=== PATIENT | female | born 1930 | race Caucasian/White ===

== ENCOUNTER 2016-10-07 08:37 | Inpatient (IN) ==
[2016-10-07] MEDS ORDERED: Nitroglycerin 0.4 MG TAB.SUBL SL ONE (09:40)
--- NOTE | 2016-10-07 09:40 | Emergency Department Note ---
Disposition Clinical Impression: Dyspnea Qualifiers: Dyspnea type: shortness of breath Qualified Code(s): R06.02 - Shortness of breath Disposition: Admitted As Inpatient Condition: Fair Referrals: Jenelle De Luna DO [Primary Care Provider] - Forms: ED Satisfaction Letter General Adult HPI - General Chief complaint: ED Shortness of Breath/Dyspnea Stated complaint: FCO Time Seen by Provider: 10/07/16 08:43 Source: patient Limitations: no limitations Nursing Notes Reviewed: Yes Vital Signs Reviewed: Yes - History of Present Illness Pt Subjective Complaint: "Still short of breath" Onset (ago): week(s) (1.5) Location: other (no pain now) Radiation: non-radiation Pain Scale: 0 Quality: other (patient denies pain to me) Improves with: nothing Worsens with: nothing Associated symptoms: Denies: confusion, chest pain, cough, diaphoresis, fever/ chills, headaches, loss of appetite, malaise, nausea/vomiting, rash, seizure, shortness of breath, syncope, weakness, other Treatments Prior to Arrival: other (patient was seen here on Sunday and was diagnosed with CAP. She was given a Z-pack. She finished this med two days ago and still feels the same. ) - Related Data Home Medications Medication Instructions Recorded Confirmed Alendronate Sodium 70 mg PO AD 08/24/16 08/24/16 Brimonidine Tartrate [Alphagan P] 1 drop BOTH EYES TID 08/24/16 08/24/16 CarBAMazepine [Carbamazepine ER] 100 mg PO BID 08/24/16 08/24/16 CloNIDine HCl 0.1 mg PO HS 08/24/16 08/24/16 Dorzolamide [Trusopt] 1 drop BOTH EYES TID 08/24/16 08/24/16 Gabapentin [Neurontin] 100 mg PO TID 08/24/16 08/24/16 Hydrocodone/Acetaminophen 1 tab PO Q6H PRN 08/24/16 08/24/16 [Hydrocodon-Acetaminophen 5-325] Lisinopril [Zestril] 20 mg PO DAILY 08/24/16 08/24/16 Loratadine [Allergy Relief] 10 mg PO DAILY 08/24/16 08/24/16 Metoprolol [Lopressor] 50 mg PO DAILY 08/24/16 08/24/16 Raloxifene [Evista] 60 mg PO DAILY 08/24/16 08/24/16 Timolol Maleate 0.5% [Timolol 1 drop OP DAILY 08/24/16 08/24/16 Maleate 0.5%] Previous Rx's Medication Instructions Recorded Megestrol Acetate [Megace] 400 mg PO DAILY #400 mls 08/24/16 Omeprazole [PriLOSEC] 20 mg PO DAILY #30 cap 08/24/16 Amitriptyline [Elavil] 25 mg PO DAILY 14 Days 09/15/16 Naproxen [Naprosyn] 250 mg PO BID #10 tablet 09/15/16 Azithromycin [Azithromycin 6-Tab 250 mg PO PER PKG DI #6 tab 10/02/16 Pack] Allergies Allergy/AdvReac Type Severity Reaction Status Date / Time No Known Allergies Allergy Verified 10/02/16 11:23 All systems ED: reviewed and negative except as stated. Constitutional: Denies: fever, chills, weakness, weight change, night sweats Eyes: Denies: eye pain, eye discharge, vision change ENT ED: Denies: ear pain, throat pain, congestion, dysphagia Cardiovascular: Reports: dyspnea on exertion. Denies: chest pain, palpitations , orthopnea, edema, syncope, paroxysmal nocturnal dyspnea Respiratory: Reports: dyspnea. Denies: cough, wheezes, hemoptysis, stridor, sputum production Gastrointestinal: Denies: abdominal pain, nausea, vomiting, diarrhea Genitourinary: Denies: urgency, dysuria, frequency, hematuria Musculoskeletal: Denies: back pain, neck pain, joint swelling, arthralgia, myalgia Integumentary: Denies: rash Neurological: Denies: headache, weakness, numbness, paresthesias, confusion, abnormal gait, vertigo Psychiatric: Denies: anxiety Endocrine: Denies: fatigue Hematological/Lymphatic: Denies: easy bleeding Allergic/Immunologic: Denies: facial swelling Past Medical History - Past Medical History Attestation: Yes The following information was validated with the patient. Source: patient Medical history: Reports: hypertension, myocardial infarction, other Psychiatric history: Reports: anxiety, depression [employer]ERSON [employer] NEED[employer] history: Reports: no [employer]ESPERSON [employer] NEEDS history - Social History Smoking Status: Never smoker Smokeless Tobacco Status: No Alcohol use: Reports: none Drug use: Reports: none Physical Exam - General Limitations: no limitations General appearance: alert, in no apparent distress, anxious - Head Head exam: atraumatic, normocephalic, normal inspection - Eye Eye exam: Present: normal appearance, PERRL. Absent: scleral icterus, conjunctival injection, periorbital swelling - ENT ENT exam: mucous membranes moist - Neck Neck exam: Present: normal inspection, full ROM, trachea midline. Absent: meningismus, lymphadenopathy - Chest Chest inspection: Present: normal inspection, symmetric chest wall rise. Absent : tenderness - Respiratory Respiratory exam: Present: normal lung sounds bilaterally. Absent: respiratory distress, wheezes, stridor, accessory muscle use, prolonged expiratory phase - Cardiovascular Cardiovascular exam: Present: regular rate, normal rhythm, normal heart sounds - Abdominal Exam Abdominal exam: Present: soft, Non-Tender. Absent: tenderness, distention, guarding, rebound, rigidity - Extremities Exam Extremities exam: Present: normal inspection. Absent: pedal edema - Expanded Lower Extremity Exam Lower leg exam: Absent: tenderness, swelling, ecchymosis, erythema, Homans' sign Neurovascular/Tendon exam: Present: normal capillary refill. Absent: pulse deficit, motor deficit, sensory deficit, tendon deficit, extremity cold to touch , pallor, foot drop Gait: not tested/not observed - Back Exam Back exam: Present: normal inspection - Neurological Exam Neurological exam: Present: alert, oriented X3, CN II-XII intact, normal gait - Psychiatric Psychiatric exam: Present: normal affect, normal mood - Skin Skin exam: Present: warm, dry, intact, normal color Course Course Narrative: Patient presents from home for evaluation of continued dyspnea. She was diagnosed with bronchitis this past Sunday by her primary care provider. She was then seen in the ER and was diagnosed with pneumonia after having a CTA done. She has completed a Z-Eron and has had no improvement. She denies cough or hemoptysis, chest pain, abdominal pain or back pain. 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 She states that the jaw pain feels similar to that which she has experienced in the past from her TMJ syndrome. She denies chest pressure, heaviness or pain at this time. She denies lightheadedness, dizziness, vertigo, syncope. She does not recall ever having a stress test but was diagnosed with a "mild heart attack several years ago." We will check labs, x-ray, EKG and reassess. Patient was very difficult stick. The roller stainer was able to get some blood for some of the labs, however, a second roller stainer will need to come jaw dictation for the remainder of the labs. This resulted in a significant delay in patient's disposition. Given her past medical history, presenting symptoms with no fever and no cough, I am concerned that her dyspnea may be an anginal equivalent. She will require admission for further evaluation. Patient care is transferred to Dr. Seo. He will speak with the hospitalist regarding admission. - Reevaluation(s) Reevaluation #1: Repeat BP improved but still elevated Time: 11:20 Vital Signs Temperature 97.5 F L 10/07/16 08:38 Pulse Rate 59 10/07/16 08:38 Respiratory Rate 18 10/07/16 08:38 Blood Pressure 194/142 10/07/16 08:38 O2 Sat by Pulse Oximetry 94 L 10/07/16 08:38 Temperature 97.5 F L 10/07/16 08:38 Pulse Rate 71 10/07/16 12:10 Respiratory Rate 12 10/07/16 12:10 Blood Pressure 167/92 10/07/16 12:10 O2 Sat by Pulse Oximetry 99 10/07/16 12:10 Oxygen Delivery Oxygen Delivery Room Air Medical Decision Making - Medical Records Medical records reviewed: Yes I reviewed the patient's medical records. - Lab Data Lab results reviewed: Yes I reviewed the patient's lab results. Lab results narrative: Laboratory Last Values WBC 12.8 K/mcL (4.3-11.1) H 10/07/16 11:16 RBC 5.09 M/mcL (3.82-4.97) H 10/07/16 11:16 Hgb 15.9 g/dL (11.5-15.4) H 10/07/16 11:16 Hct 47.1 % (35.3-44.9) H 10/07/16 11:16 MCV 92.5 fL (83.0-100.0) 10/07/16 11:16 MCH 31.2 pg (28.0-33.3) 10/07/16 11:16 MCHC 33.8 g/dL (31.6-35.5) 10/07/16 11:16 RDW 12.8 % (11.5-14.5) 10/07/16 11:16 Plt Count 157 K/mcL (140-400) 10/07/16 11:16 MPV 11.0 fL (9.4-12.4) 10/07/16 11:16 Immature Gran % 0.2 % (0-4) 10/07/16 11:16 Seg Neutrophils % 76.5 % 10/07/16 11:16 Lymphocytes % 14.6 % 10/07/16 11:16 Monocytes % 5.8 % 10/07/16 11:16 Eosinophils % 2.4 % 10/07/16 11:16 Basophils % 0.5 % 10/07/16 11:16 Neutrophils # 9.8 K/mcL (1.6-8.9) H 10/07/16 11:16 Lymphocytes # 1.9 K/mcL (0.6-4.6) 10/07/16 11:16 Monocytes # 0.7 K/mcL (0.0-1.3) 10/07/16 11:16 Eosinophils # 0.3 K/mcL (0.0-0.6) 10/07/16 11:16 Basophils # 0.1 K/mcL (0.0-0.2) 10/07/16 11:16 Sodium 143 mEq/L (136-145) 10/07/16 11:16 Potassium 5.2 mEq/L (3.5-4.5) H 10/07/16 11:16 Chloride 108 mEq/L (98-109) 10/07/16 11:16 Carbon Dioxide 25 mEq/L (19-29) 10/07/16 11:16 BUN 19 mg/dL (7-20) 10/07/16 11:16 Creatinine 0.67 mg/dL (0.57-1.11) 10/07/16 11:16 Est GFR ( Amer) > 60 (> 60) 10/07/16 11:16 Est GFR (Non-Af Amer) > 60 (> 60) 10/07/16 11:16 BUN/Creatinine Ratio 28 (6-26) H 10/07/16 11:16 Glucose 102 mg/dL (70-99) H 10/07/16 11:16 Calculated Osmolality 298 (280-300) 10/07/16 11:16 Calcium 9.4 mg/dL (8.6-10.8) 10/07/16 11:16 Specimen Rejected Volume 10/07/16 11:16 Result diagrams: 10/07/16 11:16 10/07/16 11:16 Lab Results 10/07/16 10/07/16 10/07/16 Range/Units 11:16 11:16 11:16 WBC 12.8 H (4.3-11.1) K/mcL RBC 5.09 H (3.82-4.97) M/mcL Hgb 15.9 H (11.5-15.4) g/dL Hct 47.1 H (35.3-44.9) % MCV 92.5 (83.0-100.0) fL MCH 31.2 (28.0-33.3) pg MCHC 33.8 (31.6-35.5) g/dL RDW 12.8 (11.5-14.5) % Plt Count 157 (140-400) K/mcL MPV 11.0 (9.4-12.4) fL Immature Gran % 0.2 (0-4) % Seg Neutrophils % 76.5 % Lymphocytes % 14.6 % Monocytes % 5.8 % Eosinophils % 2.4 % Basophils % 0.5 % Neutrophils # 9.8 H (1.6-8.9) K/mcL Lymphocytes # 1.9 (0.6-4.6) K/mcL Monocytes # 0.7 (0.0-1.3) K/mcL Eosinophils # 0.3 (0.0-0.6) K/mcL Basophils # 0.1 (0.0-0.2) K/mcL Sodium 143 (136-145) mEq/L Potassium 5.2 H (3.5-4.5) mEq/L Chloride 108 (98-109) mEq/L Carbon Dioxide 25 (19-29) mEq/L BUN 19 (7-20) mg/dL Creatinine 0.67 (0.57-1.11) mg/dL Est GFR ( Amer) > 60 (> 60) Est GFR (Non-Af Amer) > 60 (> 60) BUN/Creatinine Ratio 28 H (6-26) Glucose 102 H (70-99) mg/dL Calculated Osmolality 298 (280-300) Calcium 9.4 (8.6-10.8) mg/dL Specimen Rejected Volume - Radiology Data Radiology results reviewed: Yes I reviewed the patient's radiology results. Chest X-Ray 10/07/16 09:33 IMPRESSION: No acute cardiopulmonary disease. Mild cardiomegaly without overt failure. D/ / Patrick John MD / Patrick John MD Interpreting Provider: Patrick John MD Attestation Statement - Attestation Attestation: I examined this patient and my medical decision-making was reviewed with the NOTE TAKER/PA/Advanced Practice Nurse/Resident Physician. I agree with the documented findings, disposition and treatment plan as described except to the extent set forth below. [id number] time provided Patient complains of dyspnea. She appears in acute distress on exam. Pulse ox appropriate. She was able to ambulate to the treatment area. Recently seen in this emergency department and diagnosed with possible early pneumonia via CT I
[2016-10-07] MEDS: 0.9 % Sodium Chloride 500 ML IVC ONE (09:57)
[2016-10-07 11:34] LABS: Basophils # 0.1 K/mcL (0.0-0.2); Basophils % 0.5 %; Eosinophils # 0.3 K/mcL (0.0-0.6); Eosinophils % 2.4 %; Hematocrit 47.1 % (35.3-44.9); Hemoglobin 15.9 g/dL (11.5-15.4); Immature Granulocytes % 0.2 % (0-4); Lymphocytes # 1.9 K/mcL (0.6-4.6); Lymphocytes % 14.6 %; Mean Corpuscular HGB Conc 33.8 g/dL (31.6-35.5); Mean Corpuscular Hemoglobin 31.2 pg (28.0-33.3); Mean Corpuscular Volume 92.5 fL (83.0-100.0); Monocytes # 0.7 K/mcL (0.0-1.3); Monocytes % 5.8 %; Neutrophils # 9.8 K/mcL (1.6-8.9); Platelet Count 157 K/mcL (140-400); Red Blood Count 5.09 M/mcL (3.82-4.97); Red Cell Distribution Width 12.8 % (11.5-14.5); Segmented Neutrophils % 76.5 %
[2016-10-07 11:39] LABS: BUN/Creatinine Ratio 28 (6-26); Blood Urea Nitrogen 19 mg/dL (7-20); Calcium 9.4 mg/dL (8.6-10.8); Carbon Dioxide 25 mEq/L (19-29); Chloride 108 mEq/L (98-109); Glucose 102 mg/dL (70-99); Osmolality,Calculated 298 (280-300); Sodium 143 mEq/L (136-145); eGFR For African Americans > 60 (> 60); eGFR For Non-African Americans > 60 (> 60)
[2016-10-07 11:40] LABS: Potassium 5.2 mEq/L (3.5-4.5)
[2016-10-07 12:23] LABS: INR 1.1; Prothrombin Time 12.4 Seconds (9.4-12.1)
[2016-10-07] MEDS ORDERED: Naloxone 0.4 MG/ML INJ IVP PRN (13:02)
[2016-10-07] MEDS ORDERED: Mag Hydrox/Al Hydrox/Simeth 30 ML UDC PO PRN (13:02)
[2016-10-07] MEDS ORDERED: MOM Conc 10 ML UD.LIQ PO PRN (13:02)
--- NOTE | 2016-10-07 14:01 | Internal Med History&Physical ---
<Isha Tao - Last Filed: 10/07/16 19:09> Date of Encounter: 10/07/16 Time of Encounter: 13:30 Assessment and Plan (1) Dyspnea Current visit: Yes Status: Acute Pt has been intermittently dyspnic for 7-8 days. 02 sats have been WNL Plan as above Qualifiers: Dyspnea type: shortness of breath Qualified Code(s): R06.02 - Shortness of breath (2) Community acquired pneumonia Current visit: No Status: Acute Pt was diagnosed with CAP 6 days ago, refused admission. Z-pack for home. Pt returns today for continued dyspnea, fatigue, and weakness. Denies fever or cough. 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 Will continue to follow. Labs in a.m. Qualifiers: Leukocytosis type: unspecified Qualified Code(s): D72.829 - Elevated white blood cell count, unspecified (4) Hypertension Current visit: Yes Status: Chronic Continue home medications. IV Hydralazine 10mg IVP x 1 for htn on arrival to unit. Monitor VS q4h Qualifiers: Hypertension type: essential hypertension Qualified Code(s): I10 - Essential (primary) hypertension (5) CAD (coronary artery disease) Current visit: Yes Status: Acute NE with stent 4 years ago. Pt is pain free. Echo ordered. Will continue to monitor. Pt is on telemetry. Qualifiers: Coronary Disease-Associated Artery/Lesion type: [place] artery [place] vs. transplanted heart: [place] heart Associated angina: without angina Qualified Code(s): I25.10 - Atherosclerotic heart disease of [place] coronary artery without angina pectoris Internal Medicine - H&P: HPI Chief complaint: sob, pneumonia this week Admitted From: Home Plans for Post Hospital Care: Home History of present illness: Ms. Grover is a 86 year old female with history of NE, CAD, Stent 4 yrsa go, HTN, glaucoma and TMJ. Pt present to ED today for continued SOB, fatigue, and weakness. Pt was treated last week for pneumonia with a zpack. She refused admission 6 days ago and has failed outpt therapy. Today's chest xray shows no acute cardiopulmonary disease, mild cardiomegaly without overt failure. CTA on 2 /13 showed no PE, but heterogenous and nodular infiltrate with RUL prominenece, RML and lingular consolidation, suggestive of pneumonia. She denies AN, however when she is up walking around her room, she appears to be SOB, denies fever, cough, or nausea and vomiting. She has constant rhinorrhea due to environmental allergies, no change. Past Med Surg Social Fam HX - Past Medical History Medical history: hypertension, myocardial infarction, other Psychiatric history: anxiety, depression - Social History Smoking Status: Never smoker Smokeless Tobacco Status: No Alcohol use: none Drug use: none - Family History Mother History Unknown: Yes Internal Medicine - H&P: Meds Alendronate Sodium 70 mg PO QWEEK 08/24/16 [History] Brimonidine Tartrate [Alphagan P] 1 drop BOTH EYES TID 08/24/16 [History] CarBAMazepine [Carbamazepine ER] 100 mg PO BID 08/24/16 [History] Dorzolamide [Trusopt] 1 drop BOTH EYES TID 08/24/16 [History] Gabapentin [Neurontin] 100 mg PO TID 08/24/16 [History] Hydrocodone/Acetaminophen [Hydrocodon-Acetaminophen 5-325] 1 tab PO Q6H PRN 01/03 [History] Lisinopril [Zestril] 20 mg PO DAILY 08/24/16 [History] Loratadine [Allergy Relief] 10 mg PO DAILY 08/24/16 [History] Omeprazole [PriLOSEC] 20 mg PO DAILY #30 cap 08/24/16 [Rx] Raloxifene [Evista] 60 mg PO DAILY 08/24/16 [History] Timolol Maleate 0.5% [Timolol Maleate 0.5%] 1 drop OP BID 08/24/16 [History] Amitriptyline [Elavil] 25 mg PO DAILY 14 Days 09/15/16 [Rx] Aspirin [Lo-Dose Aspirin EC] 81 mg PO DAILY 10/07/16 [History] CloNIDine HCl [Clonidine HCl] 0.2 mg PO BID 10/07/16 [History] Metoprolol XL (24 HR) Succ [Toprol XL] 100 mg PO DAILY 10/07/16 [History] Allergies No Known Allergies Allergy (Verified 10/02/16 11:23) All Systems PM: A 10-system review of systems was performed and is negative for pertinent findings except as documented above in the HPI. - Constitutional Constitutional: fatigue, weakness, no anorexia, no chills, no fever(s), no falls , no night sweats - EENT Eyes: no discharge Ears: decreased hearing, no ear discharge, no ear pain - Cardiovascular Cardiovascular ROS IM: dyspnea, no chest pain, no diaphoresis, no dyspnea on exertion, no edema, no irregular heart rhythm, no lightheadedness, no palpitations - Respiratory Respiratory: dyspnea, no cough, no hemoptysis, no dyspnea on exertion, no wheezing, no stridor, no pain on inspiration, no chest congestion, no change in phlegm color - Gastrointestinal Gastrointestinal: no cramping, no diarrhea, no nausea, no vomiting - Musculoskeletal Musculoskeletal ROS IM: no myalgias - Integumentary Integumentary IM: no rash - Constitutional Vitals: Temp Pulse Resp BP Pulse Ox 97.8 F 80 16 217/93 96 10/07/16 13:29 10/07/16 13:29 10/07/16 13:29 10/07/16 13:29 10/07/16 13:29 General appearance: Present: cooperative, A&O X 3, pleasant, underweight, answers questions appropriately - Head Head exam: Present: atraumatic, normal inspection - Eye Eye exam: Present: normal appearance, conjuntiva pink - ENT ENT exam: Present: mucous membranes moist, normal exam - Neck Neck exam general surgery: Present: normal inspection. Absent: lymphadenopathy , tenderness - Respiratory Respiratory exam: Present: respiratory distress, wheezes. Absent: chest wall tenderness, decreased breath sounds, CTAB Additional comments: mild respiratory distress, pt can speak in long sentences. - Cardiovascular Cardiovascular exam: Present: RRR, +S1, +S2 - GI/Abdominal GI/Abdominal exam: Present: firm, soft. Absent: mass, splenomegaly, tenderness - Extremities Exam Extremities exam: Present: full ROM, normal capillary refill, normal inspection , warm, radial pulses palpable and symetrical. Absent: calf tenderness, joint swelling, pedal edema, tenderness - Neurological Exam Neurological exam: Present: alert, oriented X3. Absent: facial droop, speech deficit Internal Med - H&P Results - Labs CBC & Chem 7: 10/07/16 11:16 10/07/16 11:16 <Isadora Anthony E - Last Filed: 10/08/16 10:57> Date of Encounter: 10/08/16 Internal Medicine - H&P: HPI History of present illness: Ms. Grover is a 86 year old female All Systems PM: A 10-system review of systems was performed and is negative for pertinent findings except as documented above in the HPI. - Constitutional Vitals: Temp Pulse Resp BP Pulse Ox 98.5 F 93 18 127/77 96 10/08/16 06:44 10/08/16 06:44 10/08/16 06:44 10/08/16 06:44 10/08/16 06:44 Internal Med - H&P Results - Labs CBC & Chem 7: 10/08/16 05:20 10/08/16 05:20 Labs: Short CBC 10/08/16 Range/Units 05:20 WBC 13.0 H (4.3-11.1) K/mcL Hgb 14.2 D (11.5-15.4) g/dL Hct 44.3 (35.3-44.9) % Plt Count 175 (140-400) K/mcL Neutrophils # 11.0 H (1.6-8.9) K/mcL BMP 10/08/16 05:20 Sodium 142 Potassium 4.5 Chloride 108 Carbon Dioxide 27 BUN 19 Creatinine 0.72 Glucose 98 Calcium 8.4 L Urine 10/07/16 Range/Units 20:45 Urine Color Yellow (Yellow) Urine Clarity Cloudy A (Clear) Urine pH 6.5 (5.0-8.0) pH Units Ur Specific [place] 1.023 (1.010-1.025) Urine Protein 30 H (Neg-Trace) mg/dL Urine Glucose (UA) Normal (Normal) mg/dL - Attending Attestation I examined this patient and reviewed laboratory, imaging and all diagnostic data on 10/07/16. My medical decision-making was reviewed with CARRINGTON Tao. I agree with the documented findings, disposition and treatment plan as described above. 86 yo F with left leg per history of CAD with cardiac stent 4 years ago, HTN and anxiety. She presented with progressive shortness of breath. She was diagnosed with pneumonia with a CTA chest on 10/02 showing no PE, but heterogenous and nodular infiltrate with RUL prominenece, RML and lingular consolidation, suggestive of pneumonia. She completed a Z-Eron course but her symptoms have not improved. Examination revealed mild rhonchi in right upper lung. No wheezes. WBC 12.8. No fever. Likely secondary to failing outpatient community-acquired pneumonia therapy. We will start her on IV Levaquin.
[2016-10-07] MEDS: Acetaminophen 325 MG TABLET PO PRN (14:24)
[2016-10-07] MEDS: 0.9 % Sodium Chloride 1,000 ML IVC SCH (14:25)
[2016-10-07] MEDS: Levofloxacin 750 MG/150 ML 750 MG/150 ML BAG IVPB SCH (14:26)
[2016-10-07] MEDS: Ondansetron 4 MG/2 ML VIAL IVP PRN (15:14)
[2016-10-07] MEDS ORDERED: *HR* LORazepam 2 MG/ML VIAL ONE (15:20)
[2016-10-07] MEDS: *HR* LORazepam 2 MG/ML VIAL IVP ONE ×2 (15:22→16:20)
[2016-10-07] MEDS: Gabapentin 100 MG CAPSULE PO SCH (20:41)
[2016-10-07] MEDS: Dorzolamide OPTH 10 ML BOTTLE BOTH EYES SCH (20:41)
[2016-10-07] MEDS: CarBAMazepine XR (12 hr) 100 MG TAB PO SCH (20:41)
[2016-10-07] MEDS: cloNIDine HCl 0.1 MG TABLET PO SCH (20:41)
[2016-10-07 21:00] LABS: Bilirubin,Urine Negative (Negative); Blood,Urine Negative (Negative); Clarity,Urine Cloudy (Clear); Color,Urine Yellow (Yellow); Glucose,Urine (UA) Normal (Normal); Ketones,Urine Negative (Negative); Leukocyte Esterase,Urine Large (Negative); Nitrite,Urine Negative (Negative); PH,Urine 6.5 pH Units (5.0-8.0); Protein,Urine 30 mg/dL (Neg-Trace); Specific Gravity,Urine 1.023 (1.010-1.025); Urobilinogen,Urine Normal (Normal)
[2016-10-07 21:02] LABS: Bacteria,Urine None Seen per hpf (None-Few); Hyaline Casts,Urine None Seen per lpf (None-Few); Squamous Epithelial Cell,Urine Many per lpf (None-Few); WBC,Urine TNTC per hpf (0-3)
[2016-10-08 05:40] LABS: Basophils % 0.3 %; Eosinophils # 0.1 K/mcL (0.0-0.6); Eosinophils % 0.8 %; Hematocrit 44.3 % (35.3-44.9); Immature Granulocytes % 0.4 % (0-4); Lymphocytes # 1.3 K/mcL (0.6-4.6); Lymphocytes % 9.7 %; Mean Corpuscular HGB Conc 32.1 g/dL (31.6-35.5); Mean Corpuscular Hemoglobin 31.1 pg (28.0-33.3); Mean Corpuscular Volume 96.9 fL (83.0-100.0); Mean Platelet Volume 10.3 fL (9.4-12.4); Monocytes # 0.5 K/mcL (0.0-1.3); Platelet Count 175 K/mcL (140-400); Red Blood Count 4.57 M/mcL (3.82-4.97); Red Cell Distribution Width 13.1 % (11.5-14.5); Segmented Neutrophils % 84.8 %
[2016-10-08 05:47] LABS: Hemoglobin 14.2 g/dL (11.5-15.4)
[2016-10-08 05:56] LABS: BUN/Creatinine Ratio 26 (6-26); Blood Urea Nitrogen 19 mg/dL (7-20); Calcium 8.4 mg/dL (8.6-10.8); Carbon Dioxide 27 mEq/L (19-29); Chloride 108 mEq/L (98-109); Glucose 98 mg/dL (70-99); Osmolality,Calculated 296 (280-300); Potassium 4.5 mEq/L (3.5-4.5); Sodium 142 mEq/L (136-145); eGFR For African Americans > 60 (> 60); eGFR For Non-African Americans > 60 (> 60)
[2016-10-08] MEDS: 0.9 % Sodium Chloride 1,000 ML IVC SCH (08:28)
[2016-10-08] MEDS: Metoprolol XL (24 HR) Succ 50 MG TAB.ER.24H PO SCH (08:32)
[2016-10-08] MEDS: CarBAMazepine XR (12 hr) 100 MG TAB PO SCH ×2 (08:32→21:06)
[2016-10-08] MEDS: *HR* Heparin 5,000 UNIT/ML VIAL SQ SCH ×2 (08:32→15:53)
[2016-10-08] MEDS: Lisinopril 20 MG TABLET PO SCH (08:32)
[2016-10-08] MEDS: Loratadine 10 MG TABLET PO SCH (08:33)
[2016-10-08] MEDS: Aspirin Enteric Coated 81 MG Tablet PO SCH (08:33)
[2016-10-08] MEDS: Gabapentin 100 MG CAPSULE PO SCH ×3 (08:33→21:06)
[2016-10-08] MEDS: cloNIDine HCl 0.1 MG TABLET PO SCH ×2 (08:33→21:06)
[2016-10-08] MEDS: Dorzolamide OPTH 10 ML BOTTLE BOTH EYES SCH ×3 (08:38→21:07)
--- NOTE | 2016-10-08 11:26 | ECHO - Doppler Report ---
Echocardiogram Name: Noni Grover Date of Study: 10/08/2016 Date: 1930 Ht: 59.0 in Medical Record#: [id number] Age: 86 Wt: 97.0 lb Gender: Female BSA: 1.36 Order #: [id number] Location: [facility] Room #: [id number] Reading Physician: Suzette Sanches DO Culinary Specialist: SJ AaronT, [facility] Ordering Physician: Isha Tao CNP Primary Physician: Jenelle De Luna DO Indications: Shortness of breath Impressions: Hyperdynamic LV function, EF 70%, with small underfilled LV cavity. Indeterminate diastolic function. Normal right ventricular size and function. Aortic valve sclerosis. Mild tricuspid regurgitation. Mild pulmonary hypertension. Left Ventricular Wall Motion: Rest Echo Findings All wall segments showed normal motion. Findings: Study Quality * Technically adequate exam. ECG Findings * Normal sinus rhythm. Left Ventricle * Mild concentric left ventricular hypertrophy. * LVEF 70%. * Small LV cavity with hyperdynamic function. No LVOTO. * Indeterminate diastolic function. Mitral Valve * Normal mitral valve structure. * No mitral stenosis. * No mitral regurgitation. Aortic Valve * No aortic regurgitation. * Aortic valve not well visualized. * No aortic stenosis. * Aortic sclerosis. Tricuspid Valve * Tricuspid valve not well visualized. * Mild tricuspid regurgitation. * Estimated RA pressure is 3 mmHg. * Estimated RVSP is 40 mmHg. * Mild pulmonary hypertension. Pulmonic Valve * Pulmonic valve is not well visualized. * No pulmonic stenosis. * No pulmonic regurgitation. Pulmonary Artery * Pulmonary artery not well visualized. Right Ventricle * Normal right ventricular structure and function. Right Atrium * Mildly dilated right atrium. Left Atrium * Moderately dilated left atrium. Interatrial Septum * No evidence of PFO by color Doppler. IVC * Normal IVC dimensions and inspiratory collapse. Pericardium * There is no pericardial effusion present. Aorta * Not well visualized. History Hypertension History of CAD/PTCA Myocardial Infarction Measurements: BP: 127/ 77 2D Normal Values IVSd: 1.30 cm 0.6 - 1.0 cm LVIDd: 3.00 cm 3.7 - 5.6 cm LVPWd: 1.30 cm 0.6 - 1.1 cm LVIDs: 2.10 cm 1.5 - 3.6 cm AO: 2.60 cm < 4.0 cm LA: 3.00 cm 2.0 - 4.0cm %FS: 30.00 cm >25 % LVOT Diam: 1.80 cm LA volume: 44 Mitral Valve Dec Time:201.00 msec Peak E:1.01 m/sec Peak A:.35 m/sec E/A Ratio:2.9 Peak E' Lat Wayne:7.9 cm/s Peak E' Med Wayne:7.02 cm/s E/E' Lat Ratio:12.8 E/E' Med Ratio:14.4 LVOT Peak Wayne:1.26 m/sec Mean Wayne:.88 m/sec Peak Grad:6.00 mmHg Mean Grad:4.00 mmHg Aortic Valve Peak Wayne:2.26 m/sec Mean Wayne:1.46 m/sec Peak Grad:20.00 mmHg Mean Grad:10.00 mmHg Valve Area:1.53 cm2 Tricuspid Valve TV Regurg Peak Grad: 37.00mmHg TV Regurg Peak Wayne: 3.06m/sec Updated by Suzette Sanches on 10/08/2016 11:19:55 AM electronically signed on 10/08/2016 11:20:29 AM with status of Final Wall Motion [place]: 1=Normal, 2=Hypokinesis, 3=Akinesis, 4=Dyskinesis, 5=Aneurysmal, 6=Hyperkinetic, X=Not Visualized (Blank)=Missing
--- NOTE | 2016-10-08 15:39 | Internal Med Progress Note ---
Date of Encounter: 10/08/16 Time of Encounter: 10:00 - Assessment and plan (1) CAD (coronary artery disease) Current Visit: Yes Status: Acute Assessment and plan: Stable, no chest pain, continue home medication Qualifiers: Coronary Disease-Associated Artery/Lesion type: [place] artery [place] vs. transplanted heart: [place] heart Associated angina: without angina Qualified Code(s): I25.10 - Atherosclerotic heart disease of [place] coronary artery without angina pectoris (2) Dyspnea Current Visit: Yes Status: Acute Assessment and plan: Possibly due to pneumonia. Improved with now. We will continue close monitoring Qualifiers: Dyspnea type: shortness of breath Qualified Code(s): R06.02 - Shortness of breath (3) Leukocytosis Current Visit: Yes Status: Acute Assessment and plan: Patient is on antibiotic. Follow-up CBC Qualifiers: Leukocytosis type: unspecified Qualified Code(s): D72.829 - Elevated white blood cell count, unspecified (4) Hypertension Current Visit: Yes Status: Chronic Assessment and plan: Stable blood pressure continue home medication Qualifiers: Hypertension type: essential hypertension Qualified Code(s): I10 - Essential (primary) hypertension (5) Community acquired pneumonia Current Visit: No Status: Acute Assessment and plan: Failure of outpatient treatment. Continue IV Levaquin. (6) DVT prophylaxis Current Visit: Yes Status: Acute (7) DVT prophylaxis Current Visit: Yes Status: Acute Assessment and plan: Heparin subcutaneously - Time Spent With Patient 25 - 35 minutes - Subjective Interval history: Patient is a 86-year-old female admitted for shortness of breath. Patient was recently diagnosed as pneumonia. Past medical history is significant for hypertension, CAD. Patient was seen and examined. She complained of shortness of breath, no cough. Vitals are stable. No desaturation or signs of hypoxia. X-ray shows pulmonary congestion, echo result unremarkable. We will continue antibiotics for pneumonia. Continue closely monitoring. - Constitutional Vitals: Temp Pulse Resp BP Pulse Ox 97.4 F L 84 19 131/72 96 10/08/16 14:52 10/08/16 14:52 10/08/16 14:52 10/08/16 14:52 10/08/16 14:52 General appearance: Present: cooperative, A&O X 3, pleasant, underweight, answers questions appropriately - Head Head exam: Present: atraumatic, normocephalic - Eye Eye exam: Present: PERRL, conjuntiva pink, sclera anicteric Pupils: Present: PERRL - Neck Neck exam general surgery: Present: supple, trachea midline. Absent: lymphadenopathy - Respiratory Respiratory exam: Present: CTAB, rales (On both lung base, Lt > Rt). Absent: accessory muscle use, rhonchi, wheezes - Cardiovascular Cardiovascular exam: Present: RRR, +S1, +S2. Absent: diastolic murmur, gallop, rubs, systolic murmur - GI/Abdominal GI/Abdominal exam: Present: normal bowel sounds, soft, no peritoneal signs. Absent: distended, tenderness - Extremities Exam Extremities exam: Present: warm, radial pulses palpable and symetrical. Absent : calf tenderness, cyanotic, pedal edema - Neurological Exam Neurological exam: Present: CN II-XII intact, oriented X3, no focal deficits. Absent: pronater drift, facial droop, speech deficit - Skin Skin exam: Present: dry, intact Internal Medicine: Result - Labs CBC & Chem 7: 10/08/16 05:20 10/08/16 05:20 Labs: Short CBC 10/08/16 Range/Units 05:20 WBC 13.0 H (4.3-11.1) K/mcL Hgb 14.2 D (11.5-15.4) g/dL Hct 44.3 (35.3-44.9) % Plt Count 175 (140-400) K/mcL Neutrophils # 11.0 H (1.6-8.9) K/mcL BMP 10/08/16 05:20 Sodium 142 Potassium 4.5 Chloride 108 Carbon Dioxide 27 BUN 19 Creatinine 0.72 Glucose 98 Calcium 8.4 L Urine 10/07/16 Range/Units 20:45 Urine Color Yellow (Yellow) Urine Clarity Cloudy A (Clear) Urine pH 6.5 (5.0-8.0) pH Units Ur Specific [place] 1.023 (1.010-1.025) Urine Protein 30 H (Neg-Trace) mg/dL Urine Glucose (UA) Normal (Normal) mg/dL - ABG Interpretation ABG results: PT/INR, D-dimer PT 12.4 Seconds (9.4-12.1) H 10/07/16 12:13 - VTE Documentation of Mechanical Device: Graduated compression elastic hosiery Consult Discharge Plan - Plan Referrals: Jenelle De Luna DO [Primary Care Provider] -
[2016-10-08] MEDS ORDERED: Furosemide 20 MG/2 ML VIAL IVP SCH (15:45)
[2016-10-08] MEDS: Acetaminophen 325 MG TABLET PO PRN (18:23)
[2016-10-08] MEDS: *HR* OxyCODONE/APAP 5/325 TABLET PO PRN (19:01)
[2016-10-09] MEDS: Ondansetron 4 MG/2 ML VIAL IVP PRN ×2 (04:52→20:01)
[2016-10-09] MEDS: *HR* OxyCODONE/APAP 5/325 TABLET PO PRN (05:39)
[2016-10-09] MEDS: *HR* Heparin 5,000 UNIT/ML VIAL SQ SCH ×2 (05:39→17:02)
[2016-10-09 05:52] LABS: Basophils % 0.4 %; Eosinophils # 0.2 K/mcL (0.0-0.6); Eosinophils % 1.4 %; Hematocrit 49.3 % (35.3-44.9); Immature Granulocytes % 0.5 % (0-4); Lymphocytes # 1.2 K/mcL (0.6-4.6); Lymphocytes % 10.9 %; Mean Corpuscular Hemoglobin 31.7 pg (28.0-33.3); Mean Corpuscular Volume 98.8 fL (83.0-100.0); Mean Platelet Volume 11.4 fL (9.4-12.4); Monocytes # 0.4 K/mcL (0.0-1.3); Monocytes % 3.9 %; Platelet Count 157 K/mcL (140-400); Red Blood Count 4.99 M/mcL (3.82-4.97); Red Cell Distribution Width 13.2 % (11.5-14.5); Segmented Neutrophils % 82.9 %
[2016-10-09 06:03] LABS: Hemoglobin 15.8 g/dL (11.5-15.4)
[2016-10-09 06:04] LABS: BUN/Creatinine Ratio 22 (6-26); Blood Urea Nitrogen 18 mg/dL (7-20); Calcium 8.9 mg/dL (8.6-10.8); Carbon Dioxide 30 mEq/L (19-29); Chloride 104 mEq/L (98-109); Glucose 99 mg/dL (70-99); Osmolality,Calculated 294 (280-300); Potassium 4.7 mEq/L (3.5-4.5); Sodium 141 mEq/L (136-145); eGFR For African Americans > 60 (> 60); eGFR For Non-African Americans > 60 (> 60)
[2016-10-09] MEDS: Dorzolamide OPTH 10 ML BOTTLE BOTH EYES SCH ×3 (08:40→21:36)
[2016-10-09] MEDS: Aspirin Enteric Coated 81 MG Tablet PO SCH (11:46)
[2016-10-09] MEDS: Gabapentin 100 MG CAPSULE PO SCH ×3 (11:47→21:35)
[2016-10-09] MEDS: Loratadine 10 MG TABLET PO SCH (11:47)
[2016-10-09] MEDS: CarBAMazepine XR (12 hr) 100 MG TAB PO SCH ×2 (11:47→23:17)
[2016-10-09] MEDS: Metoprolol XL (24 HR) Succ 50 MG TAB.ER.24H PO SCH (11:47)
[2016-10-09] MEDS: Lisinopril 20 MG TABLET PO SCH (11:47)
[2016-10-09] MEDS: cloNIDine HCl 0.1 MG TABLET PO SCH ×2 (11:47→21:35)
[2016-10-09] MEDS ORDERED: D5% in 0.45% NACL 1,000 ML IVC SCH (14:15)
[2016-10-09 16:25] LABS: ABG Base Excess 1.8 mEq/L (-2.0 to 3.0); ABG HCO3 32.2 mEQ/L (21-27); ABG Oxygen Saturation 97 % (95-98); ABG PH 7.23 pH Units (7.32-7.45); ABG PO2 104 mmHg (85-104); ABG TCO2 34.6 mEq/L (20-26)
[2016-10-09 16:26] LABS: ABG PCO2 77 mmHg (35-45)
[2016-10-09 16:27] LABS: Blood Gas Liter Flow 2 L/MIN
[2016-10-09] MEDS: Levofloxacin 750 MG/150 ML 750 MG/150 ML BAG IVPB SCH (17:02)
--- NOTE | 2016-10-09 17:19 | Internal Med Progress Note ---
Date of Encounter: 10/09/16 Time of Encounter: 09:00 - Assessment and plan (1) CAD (coronary artery disease) Current Visit: Yes Status: Acute Assessment and plan: Stable, no chest pain, continue home medication Qualifiers: Coronary Disease-Associated Artery/Lesion type: [place] artery [place] vs. transplanted heart: [place] heart Associated angina: without angina Qualified Code(s): I25.10 - Atherosclerotic heart disease of [place] coronary artery without angina pectoris (2) Dyspnea Current Visit: Yes Status: Acute Assessment and plan: Possibly due to pneumonia. Improved now. We will continue abx and close monitoring Qualifiers: Dyspnea type: shortness of breath Qualified Code(s): R06.02 - Shortness of breath (3) Leukocytosis Current Visit: Yes Status: Acute Assessment and plan: Patient is on antibiotic. Follow-up CBC. Improved after treatment. Qualifiers: Leukocytosis type: unspecified Qualified Code(s): D72.829 - Elevated white blood cell count, unspecified (4) Hypertension Current Visit: Yes Status: Chronic Assessment and plan: Stable blood pressure continue home medication Qualifiers: Hypertension type: essential hypertension Qualified Code(s): I10 - Essential (primary) hypertension (5) Community acquired pneumonia Current Visit: No Status: Acute Assessment and plan: Failure of outpatient treatment. Continue IV Levaquin. (6) DVT prophylaxis Current Visit: Yes Status: Acute (7) DVT prophylaxis Current Visit: Yes Status: Acute Assessment and plan: Heparin subcutaneously (8) CO2 retention Current Visit: Yes Status: Acute Assessment and plan: Possibly due to opioid use but pt has baseline lung infection. No hx of COPD. Will hold percocet, CAREFUL use of any other opioid. Temperaryly place pt on BiPAP. Repeat Abg. - Time Spent With Patient 25 - 35 minutes - Subjective Interval history: Patient is a 86-year-old female admitted for shortness of breath. Patient was recently diagnosed as pneumonia. Past medical history is significant for hypertension, CAD. Patient was seen and examined. She is very sleepy today. She was given percocet po 1 tab this morning 6am. Consider drug induced mental status change. She can be waken up and can move four limbs. However, her mental status no improve even until [address] head, CT chest and ABG ordered. CT head is unremarkable. CT chest still shows pneumonia. ABG shows CO2 retention and respiratory acidosis. Will place pt on BiPAP now. I reevaluated she mental status has improved even before BiPAP. However, not her baseline yet, still will place her BiPAP, re evaluate ABG after 3 hour of BipAP. Continue closely monitoring. We will continue antibiotics for pneumonia. Will hold percocet. CAREFUL WITH OTHER OPIOID. - Constitutional Vitals: Temp Pulse Resp BP Pulse Ox 98.7 F 112 20 169/89 97 10/09/16 15:24 10/09/16 15:24 10/09/16 15:24 10/09/16 15:24 10/09/16 15:24 General appearance: Present: cooperative, A&O X 3, underweight Exam: Sleepy, not talk - Head Head exam: Present: atraumatic, normocephalic - Eye Eye exam: Present: PERRL, conjuntiva pink, sclera anicteric Pupils: Present: PERRL - Neck Neck exam general surgery: Present: supple, trachea midline. Absent: lymphadenopathy - Respiratory Respiratory exam: Present: CTAB. Absent: accessory muscle use, rales, rhonchi, wheezes - Cardiovascular Cardiovascular exam: Present: RRR, +S1, +S2. Absent: diastolic murmur, gallop, rubs, systolic murmur - GI/Abdominal GI/Abdominal exam: Present: normal bowel sounds, soft, no peritoneal signs. Absent: distended, tenderness - Extremities Exam Extremities exam: Present: warm, radial pulses palpable and symetrical. Absent : calf tenderness, cyanotic, pedal edema - Neurological Exam Neurological exam: Present: CN II-XII intact, oriented X3, no focal deficits. Absent: pronater drift, facial droop, speech deficit - Skin Skin exam: Present: dry, intact Internal Medicine: Result - Labs CBC & Chem 7: 10/09/16 04:38 10/09/16 04:38 Labs: Short CBC 10/09/16 Range/Units 04:38 WBC 10.9 (4.3-11.1) K/mcL Hgb 15.8 H D (11.5-15.4) g/dL Hct 49.3 H (35.3-44.9) % Plt Count 157 (140-400) K/mcL Neutrophils # 9.0 H (1.6-8.9) K/mcL BMP 10/09/16 04:38 Sodium 141 Potassium 4.7 H Chloride 104 Carbon Dioxide 30 H BUN 18 Creatinine 0.81 Glucose 99 Calcium 8.9 - ABG Interpretation ABG results: ABG ABG pH 7.23 pH Units (7.32-7.45) L 10/09/16 16:15 ABG pCO2 77 mmHg (35-45) H* 10/09/16 16:15 ABG pO2 104 mmHg (85-104) 10/09/16 16:15 ABG O2 Saturation 97 % (95-98) 10/09/16 16:15 PT/INR, D-dimer PT 12.4 Seconds (9.4-12.1) H 10/07/16 12:13 - Impressions Impressions Chest CT 10/09/16 14:11 IMPRESSION: There stable parenchymal lung disease having the appearance of pneumonia, predominantly in the right upper lobe. There is atelectasis in the right middle lobe and lingula. There are new small pleural effusions. Stable paratracheal lymph node is likely reactive D/ / Mykel Toro MD / Mykel Toro MD Interpreting Provider: Mykel Toro MD Head CT 10/09/16 14:11 IMPRESSION: 1. No acute intracranial abnormality. 2. Acute right sphenoid sinusitis. D/ / Dae Gibson MD / Dae Gibson MD Interpreting Provider: Dae Gibson MD - VTE Documentation of Mechanical Device: Graduated compression elastic hosiery Consult Discharge Plan - Plan Referrals: Jenelle De Luna DO [Primary Care Provider] - 10/16/16 9:30 am Francois Mcneil MD [Partnered Physician] - 10/11/16 2:00 pm
[2016-10-09] MEDS ORDERED: *HR* Heparin 5,000 UNIT/ML VIAL IVP ONE (19:01)
[2016-10-09] MEDS ORDERED: *HR* Heparin 5,000 UNIT/ML VIAL IVP PRN ×2 (19:01)
--- NOTE | 2016-10-09 19:07 | Event Note ---
Date of Encounter: 10/09/16 Time of Encounter: 18:30 Pt was found tachycardia arround 6 pm. EKG shows A Fib with RVR, HR 180. Pt is asymptomatic. BP is 145/75. 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 Will placed pt on cardizem drip and heparin drip now, keep close monitoring, transfer pt to [facility].
[2016-10-09] MEDS ORDERED: Heparin 25,000 UNIT/500 ML D5W 25,000 UNIT/500 ML MLS IVC SCH (19:15)
[2016-10-09] MEDS: Acetaminophen 325 MG TABLET PO PRN (20:05)
[2016-10-09] MEDS ORDERED: *HR* LORazepam 2 MG/ML VIAL IVP STA (20:45)
[2016-10-09 21:37] LABS: INR 1.2; Prothrombin Time 13.4 Seconds (9.4-12.1)
[2016-10-09 21:39] LABS: Activated Partial Thrombo Time 29.6 Seconds (26.0-36.0)
--- NOTE | 2016-10-09 21:41 | Electrocardiograph Report ---
[place] [id number] Test Date: 2016-10-07 Pat Name: Noni Grover Department: 104 Room: [id number] Gender: F [employer] Wiring Technician: : [id number] Requested By: Roxi Tran Order Number: [id number] Reading MD: Kiko Grigsby MD Measurements Intervals [place] Rate: 78 P: 82 MI: 147 QRS: -76 QRSD: 112 T: 84 QT: 369 QTc: 402 Interpretive Statements SINUS RHYTHM WITH OCCASIONAL SUPRAVENTRICULAR PREMATURE COMPLEXES LEFT ANTERIOR FASCICULAR BLOCK POOR R WAVE PROGRESSION Electronically Signed On 10-09-2016 21:39:43 EST by Kiko Grigsby MD
[2016-10-09 21:57] LABS: Hematocrit 41.6 % (35.3-44.9); Hemoglobin 13.6 g/dL (11.5-15.4); Mean Corpuscular HGB Conc 32.7 g/dL (31.6-35.5); Mean Corpuscular Hemoglobin 32.1 pg (28.0-33.3); Mean Corpuscular Volume 98.1 fL (83.0-100.0); Mean Platelet Volume 11.2 fL (9.4-12.4); Platelet Count 113 K/mcL (140-400); Red Blood Count 4.24 M/mcL (3.82-4.97); Red Cell Distribution Width 12.7 % (11.5-14.5)
[2016-10-09] MEDS: D5% in 0.45% NACL 1,000 ML IVC SCH (23:19)
[2016-10-09] MEDS: *HR* Metoprolol 5 MG/5 ML VIAL IVP SCH ×2 (23:20→23:26)
[2016-10-10] MEDS ORDERED: *HR* Metoprolol 5 MG/5 ML VIAL IVP ONE (02:26)
[2016-10-10 05:19] LABS: Basophils # 0.1 K/mcL (0.0-0.2); Basophils % 0.3 %; Eosinophils % 0.2 %; Hematocrit 42.4 % (35.3-44.9); Hemoglobin 13.9 g/dL (11.5-15.4); Immature Granulocytes % 0.7 % (0-4); Lymphocytes % 11.7 %; Mean Corpuscular HGB Conc 32.8 g/dL (31.6-35.5); Mean Corpuscular Volume 97.5 fL (83.0-100.0); Mean Platelet Volume 10.7 fL (9.4-12.4); Monocytes # 1.2 K/mcL (0.0-1.3); Neutrophils # 13.4 K/mcL (1.6-8.9); Platelet Count 134 K/mcL (140-400); Red Blood Count 4.35 M/mcL (3.82-4.97); Red Cell Distribution Width 12.7 % (11.5-14.5); Segmented Neutrophils % 80.1 %
[2016-10-10 05:26] LABS: BUN/Creatinine Ratio 24 (6-26); Blood Urea Nitrogen 17 mg/dL (7-20); Carbon Dioxide 30 mEq/L (19-29); Chloride 102 mEq/L (98-109); Glucose 153 mg/dL (70-99); Osmolality,Calculated 291 (280-300); Potassium 4.6 mEq/L (3.5-4.5); Sodium 138 mEq/L (136-145); eGFR For African Americans > 60 (> 60); eGFR For Non-African Americans > 60 (> 60)
[2016-10-10 05:32] LABS: Activated Partial Thrombo Time 144.6 Seconds (26.0-36.0)
[2016-10-10 05:40] LABS: Heparin anti-factor XA UFH 0.99 IU/mL (0.30-0.70)
[2016-10-10] MEDS: *HR* Metoprolol 5 MG/5 ML VIAL IVP SCH (06:38)
[2016-10-10] MEDS ORDERED: *HR* Metoprolol 5 MG/5 ML VIAL IVP STA (08:26)
[2016-10-10] MEDS: Loratadine 10 MG TABLET PO SCH (09:23)
[2016-10-10] MEDS: Gabapentin 100 MG CAPSULE PO SCH ×3 (09:23→20:48)
[2016-10-10] MEDS: CarBAMazepine XR (12 hr) 100 MG TAB PO SCH ×2 (09:23→20:48)
[2016-10-10] MEDS: cloNIDine HCl 0.1 MG TABLET PO SCH ×2 (09:23→20:48)
[2016-10-10] MEDS: Aspirin Enteric Coated 81 MG Tablet PO SCH (09:23)
[2016-10-10] MEDS: Lisinopril 20 MG TABLET PO SCH (09:24)
[2016-10-10] MEDS: Dorzolamide OPTH 10 ML BOTTLE BOTH EYES SCH ×3 (09:24→20:48)
[2016-10-10] MEDS ORDERED: *HR* Digoxin 0.5 MG/2 ML AMPUL IVP ONE ×2 (09:45→22:30)
[2016-10-10] MEDS: D5% in 0.45% NACL 1,000 ML IVC SCH (10:40)
--- NOTE | 2016-10-10 11:02 | Cardiology Consult Note ---
<Marilin Hargrove Jennifer - Last Filed: 10/10/16 11:11> Date of Encounter: 10/10/16 Time of Encounter: 10:30 Assessment and Plan (1) Atrial fibrillation with RVR Current Visit: Yes Status: Acute Reported new onset atrial fibrillation in the setting of acute PNA. Recommend rate control strategy at this time. Continue IV cardizem gtt. Stop REGINA-i to allow for addtion and uptitration of betablocker. TTE: EF 70%, AV sclerosis, mild TR, mild PH TSH pending. Anticipate difficulty controlling HR with acute infection. CHA2Ds Vasc= 5 (female, age, CAD, DMII, HTN). Continue heparin gtt for now, will need to address long-term AC prior to discharge. Will make NPO after midnight for possible JOSE/CV if rate remains uncontrolled in AM. Discussion w patient/family: The assessment and plan as outlined above was discussed with the patient and/or family members who expressed understanding and agreement. All questions were answered. Thank you for involving us in the care of your patient. Please call with any questions. The patient will be discussed and reviewed with Dr. Beck; changes to be made accordingly. History of Present Illness Consult date: 10/10/16 Requesting physician: Lyubov Goodwin Consult reason: Afib with RVR Chief complaint: Fatigue, malaise, cough History of present illness: Ms. Grover is a 86 year old female with PMH significant for HTN, depression, TMJ, and CAD s/p PCI (reportedly 4 years ago) who presented to the ED with 7-8 day history worsening cough, shortness of breath, and fatigue. She was found to have PNA. She reportedly was seen in the ED last week with PNA and refused admission. Cardiology consulted overnight with reported new onset afib. HR 120's-140's upon exam. Past Med Surg Social Fam HX - Past Medical History Medical history: coronary artery disease, hypertension, myocardial infarction, other (TMJ) Psychiatric history: anxiety, depression - Past Surgical History Surgical History: angioplasty/stent - Social History Smoking Status: Never smoker Smokeless Tobacco Status: No Alcohol use: none Drug use: none - Family History Mother History Unknown: Yes Medications and Allergies Alendronate Sodium 70 mg PO QWEEK 08/24/16 [History] Brimonidine Tartrate [Alphagan P] 1 drop BOTH EYES TID 08/24/16 [History] CarBAMazepine [Carbamazepine ER] 100 mg PO BID 08/24/16 [History] Dorzolamide [Trusopt] 1 drop BOTH EYES TID 08/24/16 [History] Gabapentin [Neurontin] 100 mg PO TID 08/24/16 [History] Hydrocodone/Acetaminophen [Hydrocodon-Acetaminophen 5-325] 1 tab PO Q6H PRN 01/03 [History] Lisinopril [Zestril] 20 mg PO DAILY 08/24/16 [History] Loratadine [Allergy Relief] 10 mg PO DAILY 08/24/16 [History] Omeprazole [PriLOSEC] 20 mg PO DAILY #30 cap 08/24/16 [Rx] Raloxifene [Evista] 60 mg PO DAILY 08/24/16 [History] Timolol Maleate 0.5% [Timolol Maleate 0.5%] 1 drop OP BID 08/24/16 [History] Amitriptyline [Elavil] 25 mg PO DAILY 14 Days 09/15/16 [Rx] Aspirin [Lo-Dose Aspirin EC] 81 mg PO DAILY 10/07/16 [History] CloNIDine HCl [Clonidine HCl] 0.2 mg PO BID 10/07/16 [History] Metoprolol XL (24 HR) Succ [Toprol XL] 100 mg PO DAILY 10/07/16 [History] Allergies No Known Allergies Allergy (Verified 10/02/16 11:23) All Systems Review: A 10-system review of systems was performed and is negative for pertinent findings except as documented above in the HPI. - Cardiovascular Cardiovascular: as per HPI Physical Examination Vital Signs, Last 4 Hours Pulse Ox 10/10/16 09:00 98 General: Conversant, No Apparent Distress HEENT: Atraumatic, Normocephaly, Mucus Membranes Moist Cardiac: Other (irregularly irregular) Lungs: Other (Rales RLL) Neuro: Alert and responsive Abdomen: Soft Skin: No rashes noted on visualized skin Musculoskeletal: No Chest Wall Tenderness Extremities: No Edema, Normal Pulses Results 10/10/16 04:43 10/10/16 04:43 Lab Results 10/09/16 10/09/16 10/09/16 21:25 21:25 21:25 WBC 13.2 H Hgb 13.6 D Hct 41.6 Plt Count 113 L INR 1.2 APTT 29.6 Sodium Potassium Chloride Carbon Dioxide BUN Creatinine Glucose Calcium Troponin I 0.13 H* 10/10/16 10/10/16 10/10/16 04:43 04:43 04:43 WBC 16.8 H Hgb 13.9 Hct 42.4 Plt Count 134 L INR APTT 144.6 H* D Sodium 138 Potassium 4.6 H Chloride 102 Carbon Dioxide 30 H BUN 17 Creatinine 0.71 Glucose 153 H Calcium 8.0 L Troponin I Active Medications Acetaminophen (Tylenol) 650 mg PO Q6HR PRN PRN Reason: Mild Pain (1-3) Stop: 04/08/17 13:03 Last Admin: 10/09/16 20:05 Dose: 650 mg Al Hydrox/Mg Hydrox/Simethicone (Maalox) 15 ml PO Q6HR PRN PRN Reason: Dyspepsia Stop: 04/08/17 13:03 Amitriptyline HCl (Elavil) 25 mg PO DAILY [facility] Stop: 04/09/17 09:01 Last Admin: 10/10/16 09:23 Dose: 25 mg Aspirin (Aspirin Ec) 81 mg PO DAILY [facility] Stop: 04/09/17 09:01 Last Admin: 10/10/16 09:23 Dose: 81 mg Brimonidine Tartrate (Alphagan) 1 drop BOTH EYES TID [facility] Stop: 04/08/17 21:01 Last Admin: 10/10/16 09:23 Dose: 1 drop Carbamazepine (Tegretol Xr) 100 mg PO BID [facility] Stop: 04/08/17 21:01 Last Admin: 10/10/16 09:23 Dose: 100 mg Clonidine HCl (Clonidine Hcl) 0.2 mg PO BID [facility] Stop: 04/08/17 21:01 Last Admin: 10/10/16 09:23 Dose: Not Given Docusate Sodium (Colace) 100 mg PO BID PRN PRN Reason: Constipation Stop: 04/08/17 13:03 Dorzolamide HCl (Trusopt) 1 drop BOTH EYES TID [facility] Stop: 04/08/17 21:01 Last Admin: 10/10/16 09:24 Dose: 1 drop Gabapentin (Neurontin) 100 mg PO TID [facility] Stop: 04/08/17 21:01 Last Admin: 10/10/16 09:23 Dose: 100 mg Heparin Sodium (Porcine) (Heparin) 2,900 unit 60 unit/kg (2900 unit) IVP Q6HR PRN PRN Reason: SEE COMMENTS Stop: 04/10/17 19:02 Heparin Sodium (Porcine) (Heparin) 1,400 unit 30 unit/kg (1400 unit) IVP Q6H PRN PRN Reason: SEE COMMENTS Stop: 04/10/17 19:02 Levofloxacin/Dextrose (Levaquin 750mg/150 Ml) 750 mg in 150 mls @ 100 mls/hr IVPB Q48H [facility] PRN Reason: Protocol Stop: 04/08/17 15:01 Last Infusion: 10/09/16 18:17 Dose: Infused Diltiazem HCl 125 mg/ Dextrose 125 mls @ 5 mls/hr IVC .Q24H [facility] PRN Reason: 5 MG/HR Stop: 04/10/17 19:01 Last Infusion: 10/10/16 07:31 Dose: 12.5 mg/hr, 12.5 mls/hr Heparin Sodium/Dextrose (Heparin 25,000 Unit/500 Ml D5w) 25,000 unit in 500 mls @ 11.463 mls/hr IVC .Q24H [facility]; 12 UNIT/KG/HR PRN Reason: Protocol Stop: 04/10/17 19:16 Last Titration: 10/10/16 07:31 Dose: 9 unit/kg/hr, 8.597 mls/hr Dextrose/Sodium Chloride (D5% And 0.45% Nacl 1000 Ml Bag) 1,000 mls @ 75 mls/ hr IVC .[id number] [facility] Stop: 04/10/17 21:54 Last Admin: 10/10/16 10:40 Dose: 75 mls/hr Lisinopril (Zestril) 20 mg PO DAILY [facility] PRN Reason: Protocol Stop: 04/09/17 09:01 Last Admin: 10/10/16 09:24 Dose: Not Given Loratadine (Claritin) 10 mg PO DAILY [facility] PRN Reason: Protocol Stop: 04/09/17 09:01 Last Admin: 10/10/16 09:23 Dose: 10 mg Magnesium Hydroxide (Milk Of Magnesia Conc) 10 ml PO DAILY PRN PRN Reason: Indigestion Stop: 04/08/17 13:03 Metoprolol Tartrate (Lopressor) 5 mg IVP Q6HR [facility] Stop: 04/11/17 12:01 Naloxone HCl (Narcan) 0.4 mg IVP Q2MIN PRN PRN Reason: Opioid Reversal Stop: 04/08/17 13:03 Omeprazole (Prilosec) 20 mg PO DAILY [facility] PRN Reason: Protocol Stop: 04/09/17 09:01 Last Admin: 10/10/16 09:22 Dose: 20 mg Ondansetron HCl (Zofran) 4 mg IVP Q8HR PRN PRN Reason: Nausea And Vomiting Stop: 04/08/17 13:03 Last Admin: 10/09/16 20:01 Dose: 4 mg Raloxifene HCl (Evista) 60 mg PO DAILY [facility] Stop: 04/09/17 09:01 Last Admin: 10/10/16 09:22 Dose: 60 mg Timolol Maleate (Timolol Maleate 0.5%) 1 drop OP BID [facility] PRN Reason: Protocol Stop: 04/08/17 21:01 Last Admin: 10/10/16 09:23 Dose: 1 drop - Imaging and Cardiology Echo: pending Other Results: 12 hour tele: avg CI=699 afib - EKG Interpretation EKG results cardiology: personally reviewed Consult Discharge Plan - Plan Referrals: Jenelle De Luna DO [Primary Care Provider] - 10/16/16 9:30 am Francois Mcneil MD [Partnered Physician] - 10/11/16 2:00 pm <Devang Beck G - Last Filed: 10/10/16 12:22> Date of Encounter: 10/10/16 Assessment and Plan Discussion w patient/family: The assessment and plan as outlined above was discussed with the patient and/or family members who expressed understanding and agreement. All questions were answered. Thank you for involving us in the care of your patient. Please call with any questions. History of Present Illness History of present illness: Ms. Grover is a 86 year old female All Systems Review: A 10-system review of systems was performed and is negative for pertinent findings except as documented above in the HPI. Physical Examination Vital Signs, Last 4 Hours Temp Pulse Resp BP Pulse Ox 10/10/16 11:20 99.7 F H 106 24 134/71 95 10/10/16 09:00 98 Results 10/10/16 04:43 10/10/16 04:43 Lab Results 10/09/16 10/09/16 10/09/16 21:25 21:25 21:25 WBC 13.2 H Hgb 13.6 D Hct 41.6 Plt Count 113 L INR 1.2 APTT 29.6 Sodium Potassium Chloride Carbon Dioxide BUN Creatinine Glucose Calcium Troponin I 0.13 H* 10/10/16 10/10/16 10/10/16 04:43 04:43 04:43 WBC 16.8 H Hgb 13.9 Hct 42.4 Plt Count 134 L INR APTT 144.6 H* D Sodium 138 Potassium 4.6 H Chloride 102 Carbon Dioxide 30 H BUN 17 Creatinine 0.71 Glucose 153 H Calcium 8.0 L Troponin I - Attending Attestation I examined this patient and my medical decision-making was reviewed with the ENGLISH COMPOSITION TEACHER/PA/Advanced Practice Nurse/Resident Physician. I agree with the documented findings, disposition and treatment plan as described except to the extent set forth below. Pt appears drowsy, not very cooperative VSS JVD: 6 Chest : occ crackles CVS: irregular plan; a/w rate control anticoag will add B B lockers check echo possible JOSE cardio version in am
[2016-10-10] MEDS ORDERED: D5% in 0.45% NACL 1,000 ML IVC SCH (11:13)
[2016-10-10] MEDS ORDERED: *HR* Metoprolol 5 MG/5 ML VIAL IVP SCH (12:00)
[2016-10-10 13:09] LABS: Thyroid Stimulating Hormone 0.157 mcIU/mL (0.350-4.840)
--- NOTE | 2016-10-10 14:43 | Internal Med Progress Note ---
Date of Encounter: 10/10/16 Time of Encounter: 09:30 - Assessment and plan (1) Acute respiratory failure with hypercapnia Current Visit: Yes Status: Acute Assessment and plan: Need to recheck blood gas if she is confused or restless. (2) Pneumonia due to aerobic bacteria Current Visit: Yes Status: Acute Assessment and plan: Continuing IV abx for now. Oxygen supplementation. Reassess CXR when more stable. (3) UTI (urinary tract infection) Current Visit: Yes Status: Acute Assessment and plan: On abx at this time. Culture pending. Qualifiers: Urinary tract infection type: acute cystitis Hematuria presence: with hematuria Qualified Code(s): N30.01 - Acute cystitis with hematuria (4) Hypertension Current Visit: Yes Status: Chronic Assessment and plan: Medications adjusted due to rapid atrial fibrillation Qualifiers: Hypertension type: essential hypertension Qualified Code(s): I10 - Essential (primary) hypertension (5) Atrial fibrillation Current Visit: Yes Status: Acute Assessment and plan: Currently on Card drip and Lopressor. Dig added. Appreciate cardiology input. Qualifiers: Atrial fibrillation type: persistent Qualified Code(s): I48.1 - Persistent atrial fibrillation (6) CAD (coronary artery disease) Current Visit: Yes Status: Acute Assessment and plan: Stable, no chest pain, continue home medication Qualifiers: Coronary Disease-Associated Artery/Lesion type: [place] artery [place] vs. transplanted heart: [place] heart Associated angina: without angina Qualified Code(s): I25.10 - Atherosclerotic heart disease of [place] coronary artery without angina pectoris (7) Diastolic CHF Current Visit: Yes Status: Inactive Qualifiers: Congestive heart failure chronicity: chronic Qualified Code(s): I50.32 - Chronic diastolic (congestive) heart failure - Subjective Interval history: Ms. Grover is currently admitted for hypercarbic resp failure and community acquired pneumonia as well as atrial fibrillation with RVR. She is high risk due to the potential for worsening respiratory failure and cardiac issues. Ms. Grover feels "miserable" this AM. She remains in rapid a fib despite Card drip at 15mg and q6h Lopressor. She was given 0.5mg dig and her heartrate has improved some. Denies chest pain currently. She is restless and uncomfortable. No fever or chills. No GI symptoms. - Constitutional Vitals: Temp Pulse Resp BP Pulse Ox 99.7 F H 106 24 134/71 95 10/10/16 11:20 10/10/16 11:20 10/10/16 11:20 10/10/16 11:20 10/10/16 11:20 General appearance: Present: cooperative, A&O X 3, underweight - Head Head exam: Present: normocephalic - Eye Eye exam: Present: conjuntiva pink - ENT ENT exam: Present: mucous membranes dry - Respiratory Respiratory exam: Present: decreased breath sounds, rales. Absent: rhonchi, wheezes - Cardiovascular Cardiovascular exam: Present: irregular rhythm, tachycardia - GI/Abdominal GI/Abdominal exam: Present: soft. Absent: tenderness - Extremities Exam Extremities exam: Present: warm. Absent: tenderness - Neurological Exam Neurological exam: Present: alert, altered - Skin Skin exam: Present: dry, warm. Absent: rash Internal Medicine: Result - Labs CBC & Chem 7: 10/10/16 04:43 10/10/16 04:43 Labs: Short CBC 10/09/16 10/10/16 Range/Units 21:25 04:43 WBC 13.2 H 16.8 H (4.3-11.1) K/mcL Hgb 13.6 D 13.9 (11.5-15.4) g/dL Hct 41.6 42.4 (35.3-44.9) % Plt Count 113 L 134 L (140-400) K/mcL Neutrophils # 13.4 H (1.6-8.9) K/mcL BMP 10/10/16 04:43 Sodium 138 Potassium 4.6 H Chloride 102 Carbon Dioxide 30 H BUN 17 Creatinine 0.71 Glucose 153 H Calcium 8.0 L Cardiac Enzymes 10/09/16 Range/Units 21:25 Troponin I 0.13 H* (0-0.03) ng/mL - ABG Interpretation ABG results: ABG ABG pH 7.23 pH Units (7.32-7.45) L 10/09/16 16:15 ABG pCO2 77 mmHg (35-45) H* 10/09/16 16:15 ABG pO2 104 mmHg (85-104) 10/09/16 16:15 ABG O2 Saturation 97 % (95-98) 10/09/16 16:15 PT/INR, D-dimer PT 13.4 Seconds (9.4-12.1) H 10/09/16 21:25 - Impressions Impressions Chest CT 10/09/16 14:11 IMPRESSION: There stable parenchymal lung disease having the appearance of pneumonia, predominantly in the right upper lobe. There is atelectasis in the right middle lobe and lingula. There are new small pleural effusions. Stable paratracheal lymph node is likely reactive D/ / Mykel Toro MD / Mykel Toro MD Interpreting Provider: Mykel Toro MD Head CT 10/09/16 14:11 IMPRESSION: 1. No acute intracranial abnormality. 2. Acute right sphenoid sinusitis. D/ / Dae Gibson MD / Dae Gibson MD Interpreting Provider: Dae Gibson MD - VTE Documentation of Mechanical Device: Graduated compression elastic hosiery Consult Discharge Plan - Plan Referrals: Jenelle De Luna DO [Primary Care Provider] - 10/16/16 9:30 am Francois Mcneil MD [Partnered Physician] - 10/11/16 2:00 pm
[2016-10-10 15:41] LABS: ABG Base Excess 10.8 mEq/L (-2.0 to 3.0); ABG HCO3 39.5 mEQ/L (21-27); ABG Oxygen Saturation 97 % (95-98); ABG PCO2 75 mmHg (35-45); ABG PH 7.33 pH Units (7.32-7.45); ABG PO2 93 mmHg (85-104); ABG TCO2 41.8 mEq/L (20-26)
[2016-10-10 15:42] LABS: Blood Gas FiO2 30 %; Blood Gas Liter Flow 2.5 L/MIN
[2016-10-10] MEDS: *HR* Digoxin 0.5 MG/2 ML AMPUL IVP SCH ×2 (17:10→18:44)
--- NOTE | 2016-10-10 17:44 | Electrocardiograph Report ---
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
--- NOTE | 2016-10-10 18:05 | Electrocardiograph Report ---
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
--- NOTE | 2016-10-10 22:52 | Event Note ---
<Radha Tran - Last Filed: 10/10/16 22:59> Date of Encounter: 10/10/16 Time of Encounter: 22:49 Called to patient's room by nursing staff after patient found to have heart rate in the 50s and BP 66/36. On arrival to room, cardizem drip was turned off and 500cc fluid bolus running. Patient was initially refusing to answer and eventually said that she was angry and wasn't going to talk. Patient was able to tell me her name but not the time or place, which nurse reports is her base line. Heart rate is still atrial fibrillation running 50s-60s. Lungs clear to auscultation. O2 saturation 97% on 2.5L O2. Blood pressure taken manually in the 80s/40s. Patient did eventually deny increasing shortness of breath, chest pain, or headache. Will do a full liter bolus and monitor blood pressure/ vitals every 15min for the next couple hours. As patient is here with hypercapnic respiratory failure, will get a stat ABG. Will re-evaluate the patient after fluid bolus. Discussed patient with the attending, Dr. Mendez. <Gt Mendez - Last Filed: 10/11/16 00:34> Date of Encounter: 10/11/[address] Tran and agree with her assessment and plan.
[2016-10-10] MEDS ORDERED: 0.9 % Sodium Chloride 1,000 ML ONE (23:04)
[2016-10-10 23:09] LABS: ABG Base Excess 9.6 mEq/L (-2.0 to 3.0); ABG HCO3 37.4 mEQ/L (21-27); ABG Oxygen Saturation 99 % (95-98); ABG PH 7.33 pH Units (7.32-7.45); ABG PO2 127 mmHg (85-104); ABG TCO2 39.6 mEq/L (20-26)
[2016-10-10 23:11] LABS: ABG PCO2 71 mmHg (35-45); Blood Gas FiO2 28 %
[2016-10-10] MEDS: 0.9 % Sodium Chloride 500 ML IVC ONE (23:53)
[2016-10-11] MEDS ORDERED: *HR* Metoprolol 5 MG/5 ML VIAL IVP STA (03:19)
[2016-10-11] MEDS ORDERED: 0.9 % Sodium Chloride 1,000 ML IVC SCH (03:30)
[2016-10-11] MEDS ORDERED: *HR* Metoprolol 5 MG/5 ML VIAL IVP ONE (04:50)
[2016-10-11 05:29] LABS: Hematocrit 40.7 % (35.3-44.9); Hemoglobin 13.1 g/dL (11.5-15.4); Mean Corpuscular HGB Conc 32.2 g/dL (31.6-35.5); Mean Corpuscular Volume 96.2 fL (83.0-100.0); Mean Platelet Volume 10.9 fL (9.4-12.4); Platelet Count 134 K/mcL (140-400); Red Blood Count 4.23 M/mcL (3.82-4.97); Red Cell Distribution Width 12.7 % (11.5-14.5)
[2016-10-11 05:46] LABS: Alanine Aminotransferase 6 Units/L (0-55); Alkaline Phosphatase 55 Units/L (38-126); Aspartate Amino Transferase 16 Units/L (5-34); BUN/Creatinine Ratio 12 (6-26); Bilirubin,Total 0.5 mg/dL (0.2-1.2); Blood Urea Nitrogen 7 mg/dL (7-20); Calcium 7.9 mg/dL (8.6-10.8); Carbon Dioxide 32 mEq/L (19-29); Chloride 106 mEq/L (98-109); Globulin 2.9 g/dL (2.4-3.5); Glucose 95 mg/dL (70-99); Magnesium 1.5 mg/dL (1.6-2.6); Osmolality,Calculated 292 (280-300); Sodium 142 mEq/L (136-145); Total Protein 5.9 g/dL (6.0-8.3); eGFR For African Americans > 60 (> 60); eGFR For Non-African Americans > 60 (> 60)
[2016-10-11] MEDS: *HR* Metoprolol 5 MG/5 ML VIAL IVP PRN (06:29)
[2016-10-11] MEDS ORDERED: Magnesium Sulfate 1 GM in D5% in Water 100 ML IVPB ONE (08:25)
[2016-10-11] MEDS: Aspirin Enteric Coated 81 MG Tablet PO SCH (10:58)
[2016-10-11] MEDS: Loratadine 10 MG TABLET PO SCH (10:59)
[2016-10-11] MEDS: cloNIDine HCl 0.1 MG TABLET PO SCH ×2 (10:59→20:05)
[2016-10-11] MEDS: Gabapentin 100 MG CAPSULE PO SCH ×3 (11:00→20:05)
[2016-10-11] MEDS: CarBAMazepine XR (12 hr) 100 MG TAB PO SCH ×2 (11:00→20:09)
[2016-10-11] MEDS: Dorzolamide OPTH 10 ML BOTTLE BOTH EYES SCH ×3 (11:00→20:08)
--- NOTE | 2016-10-11 11:18 | Cardiology Progress Note ---
Date of Encounter: 10/11/16 Time of Encounter: 09:30 Assessment and Plan (1) Atrial fibrillation with RVR Current Visit: Yes Status: Acute Reported new onset atrial fibrillation in the setting of acute PNA. Recommend rate control strategy at this time. Cardizem gtt (was at 15 mg/hr) was stopped overnight due to bradycardia and hypotension. 12 hour tele: avg HR=92 afib. No significant pause, min=40's. HR now 140's after increase in betablocker, will start short acting cardizem, continue to monitor closely. TTE: EF 70%, AV sclerosis, mild TR, mild PH TSH low---defer mgmt to primary service. Anticipate difficulty controlling HR with acute infection. CHA2Ds Vasc= 5 (female, age, CAD, DMII, HTN). Discussed AC options including NOAC vs. coumadin with son, he favors AC and prefers NOAC; will start Eliquis 2.5 mg BID. Discussed with Dr. Beck who agrees with above plan. (2) Elevated troponin Current Visit: Yes Status: Acute Troponin 0.01, 0.13. Denies chest pain. Likely demand ischemia in the setting of of atrial fibrillation with RVR. TTE, EF preserved normal wall motion. Continue asa, statin, and betablocker. Discussion w patient/family: The assessment and plan as outlined above was discussed with the patient and/or family members who expressed understanding and agreement. All questions were answered. Thank you for involving us in the care of your patient. Please call with any questions. The patient will be discussed and reviewed with Dr. Beck; changes to be made accordingly. Subjective Principal diagnosis: Afib, PNA Interval history: Seen and examined. Patient continues to be confused, however more alert today. Son at bedside; he reports patient resides with him however she functions independently and drives. Objective Vital Signs, Last 4 Hours Temp Pulse Resp BP Pulse Ox 10/11/16 07:48 98.7 F 121 16 140/101 100 General: Conversant (alert to self only. ) HEENT: Atraumatic, Normocephaly, Mucus Membranes Moist Cardiac: Other (irregularly irregular ) Lungs: Normal Breath Sounds Abdomen: Soft Skin: No rashes noted on visualized skin Musculoskeletal: No Chest Wall Tenderness Extremities: No Edema, Normal Pulses Results 10/11/16 04:51 10/11/16 04:51 Lab Results 10/10/16 10/10/16 10/11/16 14:13 21:46 04:51 WBC 10.2 Hgb 13.1 Hct 40.7 Plt Count 134 L APTT 35.9 D 61.1 H D Sodium Potassium Chloride Carbon Dioxide BUN Creatinine Glucose Calcium Magnesium Total Bilirubin AST ALT Alkaline Phosphatase 10/11/16 10/11/16 04:51 04:51 WBC Hgb Hct Plt Count APTT 46.7 H Sodium 142 Potassium 4.0 Chloride 106 Carbon Dioxide 32 H BUN 7 D Creatinine 0.60 Glucose 95 Calcium 7.9 L Magnesium 1.5 L Total Bilirubin 0.5 AST 16 ALT 6 Alkaline Phosphatase 55 - Imaging and Cardiology Echo: report reviewed Other Results: 12 hour tele: 97 afib. - EKG Interpretation EKG results cardiology: personally reviewed - VTE Documentation of Mechanical Device: Graduated compression elastic hosiery Consult Discharge Plan - Plan Referrals: Jenelle De Luna DO [Primary Care Provider] - 10/16/16 9:30 am Francois Mcneil MD [Partnered Physician] - 10/11/16 2:00 pm
[2016-10-11] MEDS: D5% in 0.45% NACL 1,000 ML IVC SCH ×2 (12:29→20:09)
[2016-10-11] MEDS ORDERED: Amiodarone Premix 360 MG/200 ML BAG IVC ONE (13:34)
[2016-10-11] MEDS: APIXABAN 5 MG TABLET PO SCH ×3 (13:35→20:05)
--- NOTE | 2016-10-11 13:35 | Internal Med Progress Note ---
<TemoSharath chan - Last Filed: 10/11/16 15:03> Date of Encounter: 10/11/16 Time of Encounter: 13:35 - Assessment and plan (1) Acute respiratory failure with hypercapnia Current Visit: Yes Status: Acute Assessment and plan: Likely related to pneumonia as well as A. fib. Oxygenation improving. If there is an acute change in mental status we will recheck ABG. (2) Atrial fibrillation with RVR Current Visit: Yes Status: Acute Assessment and plan: Likely related to underlying infection. Heart rate and blood pressure been difficult to control with AV serge blocking agents. She will be initiated on an amiodarone drip. Cardiology is following. (3) Pneumonia due to aerobic bacteria Current Visit: Yes Status: Acute Assessment and plan: Continuing IV abx. Oxygen supplementation as needed. (4) CAD (coronary artery disease) Current Visit: Yes Status: Acute Assessment and plan: Stable. No evidence of ischemia. Continue home medications. Continue heparin drip Qualifiers: Coronary Disease-Associated Artery/Lesion type: [place] artery [place] vs. transplanted heart: [place] heart Associated angina: without angina Qualified Code(s): I25.10 - Atherosclerotic heart disease of [place] coronary artery without angina pectoris (5) Diastolic CHF Current Visit: Yes Status: Inactive Qualifiers: Congestive heart failure chronicity: chronic Qualified Code(s): I50.32 - Chronic diastolic (congestive) heart failure - Subjective Interval history: Patient seen and examined at bedside. Patient is resting comfortably and has no complaints this time. - Constitutional Vitals: Temp Pulse Resp BP Pulse Ox 99.2 F 92 16 86/47 99 10/11/16 11:40 10/11/16 11:40 10/11/16 11:40 10/11/16 11:40 10/11/16 11:40 General appearance: Present: cooperative, A&O X 3, underweight - Respiratory Respiratory exam: Present: decreased breath sounds. Absent: rales, rhonchi, wheezes, tachypnea - Cardiovascular Cardiovascular exam: Present: irregular rhythm, tachycardia. Absent: gallop, rubs, systolic murmur - GI/Abdominal GI/Abdominal exam: Present: normal bowel sounds, soft. Absent: distended, tenderness - Extremities Exam Extremities exam: Absent: pedal edema Internal Medicine: Result - Labs CBC & Chem 7: 10/11/16 04:51 10/11/16 04:51 Labs: Short CBC 10/11/16 Range/Units 04:51 WBC 10.2 (4.3-11.1) K/mcL Hgb 13.1 (11.5-15.4) g/dL Hct 40.7 (35.3-44.9) % Plt Count 134 L (140-400) K/mcL BMP 10/11/16 04:51 Sodium 142 Potassium 4.0 Chloride 106 Carbon Dioxide 32 H BUN 7 D Creatinine 0.60 Glucose 95 Calcium 7.9 L Liver Function 10/11/16 Range/Units 04:51 Total Bilirubin 0.5 (0.2-1.2) mg/dL AST 16 (5-34) Units/L ALT 6 (0-55) Units/L Alkaline Phosphatase 55 (38-126) Units/L Albumin 3.0 L (3.5-5.0) g/dL - ABG Interpretation ABG results: ABG ABG pH 7.33 pH Units (7.32-7.45) 10/10/16 23:00 ABG pCO2 71 mmHg (35-45) H* 10/10/16 23:00 ABG pO2 127 mmHg (85-104) H 10/10/16 23:00 ABG O2 Saturation 99 % (95-98) H 10/10/16 23:00 PT/INR, D-dimer PT 13.4 Seconds (9.4-12.1) H 10/09/16 21:25 - VTE Documentation of Mechanical Device: Graduated compression elastic hosiery Consult Discharge Plan - Plan Referrals: Jenelle De Luna DO [Primary Care Provider] - 10/16/16 9:30 am Francois Mcneil MD [Partnered Physician] - 10/26/16 10:00 am <Jeovanny Pearl - Last Filed: 10/11/16 15:59> Date of Encounter: 10/11/16 - Assessment and plan (1) Acute respiratory failure with hypercapnia Current Visit: Yes Status: Acute (2) Acute metabolic encephalopathy Current Visit: Yes Status: Acute Assessment and plan: Supportive care. (3) Pneumonia due to aerobic bacteria Current Visit: Yes Status: Acute (4) UTI (urinary tract infection) Current Visit: Yes Status: Acute Qualifiers: Urinary tract infection type: acute cystitis Hematuria presence: with hematuria Qualified Code(s): N30.01 - Acute cystitis with hematuria (5) Hypertension Current Visit: Yes Status: Chronic Qualifiers: Hypertension type: essential hypertension Qualified Code(s): I10 - Essential (primary) hypertension (6) Atrial fibrillation Current Visit: Yes Status: Acute Qualifiers: Atrial fibrillation type: persistent Qualified Code(s): I48.1 - Persistent atrial fibrillation (7) CAD (coronary artery disease) Current Visit: Yes Status: Acute Qualifiers: Coronary Disease-Associated Artery/Lesion type: [place] artery [place] vs. transplanted heart: [place] heart Associated angina: without angina Qualified Code(s): I25.10 - Atherosclerotic heart disease of [place] coronary artery without angina pectoris (8) Diastolic CHF Current Visit: Yes Status: Inactive Qualifiers: Congestive heart failure chronicity: chronic Qualified Code(s): I50.32 - Chronic diastolic (congestive) heart failure - Constitutional Vitals: Temp Pulse Resp BP Pulse Ox 98.6 F 122 20 118/55 100 10/11/16 14:41 10/11/16 14:41 10/11/16 14:41 10/11/16 14:41 10/11/16 14:57 Internal Medicine: Result - Labs CBC & Chem 7: 10/11/16 04:51 10/11/16 04:51 Labs: Short CBC 10/11/16 Range/Units 04:51 WBC 10.2 (4.3-11.1) K/mcL Hgb 13.1 (11.5-15.4) g/dL Hct 40.7 (35.3-44.9) % Plt Count 134 L (140-400) K/mcL BMP 10/11/16 04:51 Sodium 142 Potassium 4.0 Chloride 106 Carbon Dioxide 32 H BUN 7 D Creatinine 0.60 Glucose 95 Calcium 7.9 L Liver Function 10/11/16 Range/Units 04:51 Total Bilirubin 0.5 (0.2-1.2) mg/dL AST 16 (5-34) Units/L ALT 6 (0-55) Units/L Alkaline Phosphatase 55 (38-126) Units/L Albumin 3.0 L (3.5-5.0) g/dL - ABG Interpretation ABG results: ABG ABG pH 7.33 pH Units (7.32-7.45) 10/10/16 23:00 ABG pCO2 71 mmHg (35-45) H* 10/10/16 23:00 ABG pO2 127 mmHg (85-104) H 10/10/16 23:00 ABG O2 Saturation 99 % (95-98) H 10/10/16 23:00 PT/INR, D-dimer PT 13.4 Seconds (9.4-12.1) H 10/09/16 21:25 - Attending Attestation I examined this patient and my medical decision-making was reviewed with the Resident Physician on 10/11/16. I agree with the documented findings, disposition and treatment plan as described except to the extent set forth below. Ms. Grover is currently admitted for acute hypercarbic resp failure, pneumonia and rapid atrial fibrillation. She remains moderate to high risk due to potential for further respiratory or cardiac issues. Ms. Grover is still somnolent at times and does not follow commands. Her heartrate and BP decreased last night. When she is awake heartrate and BP are elevated again. Denies pain. Unable to swallow pills well. Tranferring to [facility] for amio drip. Exam Alert. Somnolent Heart tachy and irreg Lungs with rhonchi on R I/P 1. Acute encephalopathy 2. Hypercarbic resp failure 3. Rapid a fib Further diagnoses and plan as above. Transfer to for amio drip.
[2016-10-11] MEDS: Levofloxacin 750 MG/150 ML 750 MG/150 ML BAG IVPB SCH (15:33)
[2016-10-11 19:22] LABS: ABG Base Excess 10.7 mEq/L (-2.0 to 3.0); ABG HCO3 38.8 mEQ/L (21-27); ABG Oxygen Saturation 100 % (95-98); ABG PH 7.34 pH Units (7.32-7.45); ABG PO2 179 mmHg (85-104)
[2016-10-11 19:23] LABS: ABG PCO2 72 mmHg (35-45)
[2016-10-11 19:24] LABS: Blood Gas FiO2 34 %
[2016-10-11] MEDS: Amiodarone Premix 360 MG/200 ML BAG IVC SCH (20:13)
[2016-10-11] MEDS ORDERED: *HR* Digoxin 0.5 MG/2 ML AMPUL IVP SCH (22:30)
[2016-10-12 06:14] LABS: Basophils % 0.2 %; Eosinophils # 0.2 K/mcL (0.0-0.6); Eosinophils % 2.5 %; Hematocrit 40.8 % (35.3-44.9); Hemoglobin 13.5 g/dL (11.5-15.4); Immature Granulocytes % 1.1 % (0-4); Immature Platelets 5.3 % (1.1-6.1); Lymphocytes # 1.3 K/mcL (0.6-4.6); Lymphocytes % 13.9 %; Mean Corpuscular HGB Conc 33.1 g/dL (31.6-35.5); Mean Corpuscular Hemoglobin 31.9 pg (28.0-33.3); Mean Corpuscular Volume 96.5 fL (83.0-100.0); Mean Platelet Volume 11.5 fL (9.4-12.4); Monocytes # 0.7 K/mcL (0.0-1.3); Monocytes % 7.8 %; Platelet Count 125 K/mcL (140-400); Red Blood Count 4.23 M/mcL (3.82-4.97); Red Cell Distribution Width 12.9 % (11.5-14.5); Segmented Neutrophils % 74.5 %
[2016-10-12 06:43] LABS: BUN/Creatinine Ratio 13 (6-26); Blood Urea Nitrogen 8 mg/dL (7-20); Calcium 7.9 mg/dL (8.6-10.8); Carbon Dioxide 32 mEq/L (19-29); Chloride 103 mEq/L (98-109); Glucose 118 mg/dL (70-99); Magnesium 1.9 mg/dL (1.6-2.6); Osmolality,Calculated 291 (280-300); Potassium 4.1 mEq/L (3.5-4.5); Sodium 141 mEq/L (136-145); eGFR For African Americans > 60 (> 60); eGFR For Non-African Americans > 60 (> 60)
[2016-10-12] MEDS: Dorzolamide OPTH 10 ML BOTTLE BOTH EYES SCH ×3 (07:47→21:02)
[2016-10-12] MEDS: cloNIDine HCl 0.1 MG TABLET PO SCH ×2 (07:53→21:04)
[2016-10-12] MEDS: CarBAMazepine XR (12 hr) 100 MG TAB PO SCH ×2 (07:53→21:03)
[2016-10-12] MEDS: APIXABAN 5 MG TABLET PO SCH ×2 (07:54→21:04)
[2016-10-12] MEDS: Aspirin Enteric Coated 81 MG Tablet PO SCH (08:14)
[2016-10-12] MEDS: Loratadine 10 MG TABLET PO SCH (08:14)
[2016-10-12] MEDS: Gabapentin 100 MG CAPSULE PO SCH ×3 (08:15→21:03)
--- NOTE | 2016-10-12 08:28 | Internal Med Progress Note ---
Date of Encounter: 10/12/16 Time of Encounter: 08:27 - Assessment and plan (1) Acute metabolic encephalopathy Current Visit: Yes Status: Acute Assessment and plan: From Co2 narcosis Patient is now awake, alert and oriented X3 Rpt ABG today (2) Acute respiratory failure with hypercapnia Current Visit: Yes Status: Acute Assessment and plan: Likely related to pneumonia as well as A. fib. Improved Continue current management (3) Atrial fibrillation with RVR Current Visit: Yes Status: Acute Assessment and plan: Likely related to underlying infection. Titrate down amiodarone drip HR is controlled on current regimen-short acting diltiazem, metoprolol, amiodarone On Eliquis for anticoagulation TTE: EF 70%, AV sclerosis, mild TR, mild PH TSH low, Free T4 normal LFTs a.m (4) CAD (coronary artery disease) Current Visit: Yes Status: Acute Assessment and plan: ND with stent 4 years ago. Continue asa, statin, and bb.D/C heparin drip Qualifiers: Coronary Disease-Associated Artery/Lesion type: [place] artery [place] vs. transplanted heart: [place] heart Associated angina: without angina Qualified Code(s): I25.10 - Atherosclerotic heart disease of [place] coronary artery without angina pectoris (5) Elevated troponin Current Visit: Yes Status: Acute Assessment and plan: Troponin 0.01, 0.13 secondary to demand ischemia No WMA on ECHO (6) Pneumonia due to aerobic bacteria Current Visit: Yes Status: Acute Assessment and plan: Levoflox day 3 (q48H )regimen Change to po from a.m Anticipate dc home a.m (7) Hypertension Current Visit: Yes Status: Chronic Assessment and plan: Controlled Qualifiers: Hypertension type: essential hypertension Qualified Code(s): I10 - Essential (primary) hypertension (8) Diastolic CHF Current Visit: Yes Status: Inactive Qualifiers: Congestive heart failure chronicity: chronic Qualified Code(s): I50.32 - Chronic diastolic (congestive) heart failure - Subjective Interval history: 86 Y/O F on admission for management of Community acquire pneumonia Hospital stay complicated by Acute metabolic encephalopathy from CO2 narcosis, Acute hypercapneic respiratory failure, Afib with RVR, elevated troponins from demand ischemia She also has a PMH of HTN, CHFpEF, CAD She is seen at bedside alongside her son She has multiple non-specific complains, mostly fixated on going home She denies CP, palpitations, dyspnea, dizziness She is alert and oriented X3 Her son agrees her mental status is at baseline Her HR ranged from 78-98 during review, she is still on amiodarone drip Leukocytosis has resolved Will increase dose of short-acting diltiazem and attempt titrating off amiodarone Cardiology on board, appreciate recs Will repeat ABG Continue antibiotics - Constitutional Vitals: Temp Pulse Resp BP Pulse Ox 98.6 F 125 18 146/93 95 10/12/16 06:58 10/12/16 06:58 10/12/16 06:58 10/12/16 06:58 10/12/16 06:58 General appearance: Present: cooperative, A&O X 3, pleasant, no acute distress, underweight - Head Head exam: Present: atraumatic, normocephalic - Eye Eye exam: Present: PERRL, conjuntiva pink, sclera anicteric Pupils: Present: PERRL - Neck Neck exam general surgery: Present: supple, trachea midline. Absent: lymphadenopathy - Respiratory Respiratory exam: Present: CTAB. Absent: accessory muscle use, rales, rhonchi, wheezes - Cardiovascular Cardiovascular exam: Present: irregular rhythm, +S1, +S2. Absent: diastolic murmur, gallop, rubs, systolic murmur - GI/Abdominal GI/Abdominal exam: Present: normal bowel sounds, soft, no peritoneal signs. Absent: distended, tenderness - Extremities Exam Extremities exam: Present: warm, radial pulses palpable and symetrical. Absent : calf tenderness, cyanotic, pedal edema - Neurological Exam Neurological exam: Present: CN II-XII intact, oriented X3, no focal deficits. Absent: pronater drift, facial droop, speech deficit - Skin Skin exam: Present: dry, intact Internal Medicine: Result - Labs CBC & Chem 7: 10/12/16 04:00 10/12/16 04:00 Labs: Short CBC 10/12/16 Range/Units 04:00 WBC 9.4 (4.3-11.1) K/mcL Hgb 13.5 (11.5-15.4) g/dL Hct 40.8 (35.3-44.9) % Plt Count 125 L (140-400) K/mcL Neutrophils # 7.0 (1.6-8.9) K/mcL BMP 10/11/16 10/12/16 04:51 04:00 Sodium 142 141 Potassium 4.0 4.1 Chloride 106 103 Carbon Dioxide 32 H 32 H BUN 7 D 8 Creatinine 0.60 0.63 Glucose 95 118 H Calcium 7.9 L 7.9 L Liver Function 10/11/16 Range/Units 04:51 Total Bilirubin 0.5 (0.2-1.2) mg/dL AST 16 (5-34) Units/L ALT 6 (0-55) Units/L Alkaline Phosphatase 55 (38-126) Units/L Albumin 3.0 L (3.5-5.0) g/dL - ABG Interpretation ABG results: ABG ABG pH 7.34 pH Units (7.32-7.45) 10/11/16 19:06 ABG pCO2 72 mmHg (35-45) H* 10/11/16 19:06 ABG pO2 179 mmHg (85-104) H 10/11/16 19:06 ABG O2 Saturation 100 % (95-98) H 10/11/16 19:06 PT/INR, D-dimer PT 13.4 Seconds (9.4-12.1) H 10/09/16 21:25 - VTE Documentation of Mechanical Device: Graduated compression elastic hosiery Consult Discharge Plan - Plan Referrals: Jenelle De Luna DO [Primary Care Provider] - 10/16/16 9:30 am Francois Mcneil MD [Partnered Physician] - 10/26/16 10:00 am
[2016-10-12] MEDS: Amiodarone Premix 360 MG/200 ML BAG IVC SCH ×2 (09:32→19:10)
--- NOTE | 2016-10-12 11:56 | Cardiology Progress Note ---
Date of Encounter: 10/12/16 Time of Encounter: 09:00 Assessment and Plan (1) Atrial fibrillation with RVR Current Visit: Yes Status: Acute Reported new onset atrial fibrillation in the setting of acute PNA. Recommend rate control strategy at this time. HR controlled this morning on amiodarone GTT. Cardizem gtt stopped d/t hypotension. Continue oral cardizem and lopressor. 12 hour tele: avg HR=98 afib. No significant pause, min=40 at 2002. HR now 60's. TTE: EF 70%, AV sclerosis, mild TR, mild PH TSH low---defer mgmt to primary service. CHA2Ds Vasc= 5 (female, age, CAD, DMII, HTN). Discussed AC options including NOAC vs. coumadin with son yesterday and eliquis 2.5 mg BID started. Will change amiodarone to oral amiodarone in am. Discussed with Dr. Beck who agrees with above plan. (2) CAD (coronary artery disease) Current Visit: Yes Status: Acute [place] with stent 4 years ago. Continue asa, statin, and bb. Qualifiers: Coronary Disease-Associated Artery/Lesion type: [place] artery [place] vs. transplanted heart: [place] heart Associated angina: without angina Qualified Code(s): I25.10 - Atherosclerotic heart disease of [place] coronary artery without angina pectoris (3) Elevated troponin Current Visit: Yes Status: Acute Troponin 0.01, 0.13. Denies chest pain. Likely demand ischemia in the setting of of atrial fibrillation with RVR. TTE, EF preserved normal wall motion. Continue asa, statin, and betablocker. Discussion w patient/family: The assessment and plan as outlined above was discussed with the patient and/or family members who expressed understanding and agreement. All questions were answered. Thank you for involving us in the care of your patient. Please call with any questions. Subjective Principal diagnosis: Afib, PNA Interval history: Ms. Grover is confused this morning. She was reoriented to place and situation. Denies chest pain or SOB. Objective Vital Signs, Last 4 Hours Temp Pulse Resp BP Pulse Ox 10/12/16 11:33 98.4 F 71 18 144/58 99 General: Conversant, No Apparent Distress, Other (Confused) HEENT: Atraumatic, Normocephaly, Mucus Membranes Moist Neck: No JVD, Normal carotid pulses Cardiac: Other (Irregularly irregular) Lungs: Other (lung sounds diminished with faint wheezes and course rhonci throughout. ) Neuro: Alert and responsive Abdomen: Soft, Non-Tender Skin: No rashes noted on visualized skin Musculoskeletal: No Chest Wall Tenderness Extremities: No Clubbing, No Cyanosis, No Edema, Normal Pulses Results 10/12/16 04:00 10/12/16 04:00 Lab Results 10/11/16 10/12/16 10/12/16 14:47 04:00 04:00 WBC 9.4 Hgb 13.5 Hct 40.8 Plt Count 125 L APTT 64.4 H Sodium 141 Potassium 4.1 Chloride 103 Carbon Dioxide 32 H BUN 8 Creatinine 0.63 Glucose 118 H Calcium 7.9 L Magnesium 1.9 - EKG Interpretation EKG results cardiology: other (24 hour telemetry review shows AVg HR was 98 bpm. Hr noted to be up to 120 this am. HR during my exam was in the 60's.) - VTE Documentation of Mechanical Device: Graduated compression elastic hosiery Consult Discharge Plan - Plan Referrals: Jenelle De Luna DO [Primary Care Provider] - 10/16/16 9:30 am Francois Mcneil MD [Partnered Physician] - 10/26/16 10:00 am
[2016-10-12] MEDS ORDERED: levoFLOXacin 750 MG TABLET PO SCH (13:30)
[2016-10-12] MEDS: D5% in 0.45% NACL 1,000 ML IVC SCH (15:28)
[2016-10-12] MEDS: Acetaminophen 325 MG TABLET PO PRN (16:05)
[2016-10-13 05:50] LABS: Basophils % 0.1 %; Eosinophils % 0.4 %; Hematocrit 39.8 % (35.3-44.9); Hemoglobin 13.3 g/dL (11.5-15.4); Immature Granulocytes % 0.4 % (0-4); Lymphocytes # 0.8 K/mcL (0.6-4.6); Lymphocytes % 8.8 %; Mean Corpuscular HGB Conc 33.4 g/dL (31.6-35.5); Mean Corpuscular Volume 92.8 fL (83.0-100.0); Mean Platelet Volume 10.7 fL (9.4-12.4); Monocytes # 0.4 K/mcL (0.0-1.3); Monocytes % 4.8 %; Neutrophils # 7.7 K/mcL (1.6-8.9); Platelet Count 125 K/mcL (140-400); Red Blood Count 4.29 M/mcL (3.82-4.97); Red Cell Distribution Width 12.8 % (11.5-14.5); Segmented Neutrophils % 85.5 %
[2016-10-13 07:01] LABS: Alanine Aminotransferase 9 Units/L (0-55); Albumin 3.3 g/dL (3.5-5.0); Alkaline Phosphatase 60 Units/L (38-126); Aspartate Amino Transferase 17 Units/L (5-34); BUN/Creatinine Ratio 8 (6-26); Bilirubin,Total 0.4 mg/dL (0.2-1.2); Blood Urea Nitrogen 6 mg/dL (7-20); Calcium 8.1 mg/dL (8.6-10.8); Carbon Dioxide 32 mEq/L (19-29); Chloride 98 mEq/L (98-109); Globulin 3.2 g/dL (2.4-3.5); Glucose 399 mg/dL (70-99); Osmolality,Calculated 296 (280-300); Potassium 3.3 mEq/L (3.5-4.5); Sodium 136 mEq/L (136-145); Total Protein 6.5 g/dL (6.0-8.3); eGFR For African Americans > 60 (> 60); eGFR For Non-African Americans > 60 (> 60)
[2016-10-13] MEDS: CarBAMazepine XR (12 hr) 100 MG TAB PO SCH ×2 (08:00→19:52)
[2016-10-13] MEDS: Aspirin Enteric Coated 81 MG Tablet PO SCH (08:01)
[2016-10-13] MEDS: APIXABAN 5 MG TABLET PO SCH ×2 (08:01→19:52)
[2016-10-13] MEDS: Gabapentin 100 MG CAPSULE PO SCH ×3 (08:01→19:52)
[2016-10-13] MEDS: cloNIDine HCl 0.1 MG TABLET PO SCH ×2 (08:01→19:52)
[2016-10-13] MEDS: Loratadine 10 MG TABLET PO SCH (08:01)
[2016-10-13] MEDS: Dorzolamide OPTH 10 ML BOTTLE BOTH EYES SCH ×3 (08:02→19:51)
[2016-10-13] MEDS ORDERED: *HR* Amiodarone 200 MG TABLET PO SCH ×3 (09:45→10:28)
[2016-10-13 10:19] LABS: VBG PH 7.35 pH Units (7.32-7.42)
--- NOTE | 2016-10-13 10:26 | Cardiology Progress Note ---
Date of Encounter: 10/13/16 Time of Encounter: 10:22 Assessment and Plan (1) Atrial fibrillation with RVR Current Visit: Yes Status: Acute Reported new onset atrial fibrillation in the setting of acute PNA. Now atrial flutter on telemetry. She is asymptomatic. Recommend rate control strategy at this time. 12 hour telemetry review shows avg HR 79 bpm. HR currently 57. Lowest HR was 30 bpm at 0952 am while patient was sleeping. Hr maximum was 150 bpm at 0130. Amiodarone discontinued and cardizem increased last night by primary team for atrial fibrillation with RVR. Now atrial fibrillation with slow ventricular response HR 50's. Decrease cardizem back to 30 mg q 8HR. Start oral amiodarone 200 mg BID toady and then 200 mg daily. TTE: EF 70%, AV sclerosis, mild TR, mild PH TSH low---defer mgmt to primary service. AST and AST are normal. Expect breakthrough aflutter with RVR in the setting of pneumonia. CHA2Ds Vasc= 5 (female, age, CAD, DMII, HTN). Discussed AC options including NOAC vs. coumadin with son initially and eliquis 2.5 mg BID started. Discussed with Dr. Beck who agrees with above plan. Please call with changes. Out patient cardiology f/u will be made 2 weeks after discharge with full fashioned garment kn[facility]/ afib clinic. (2) Atrial flutter Current Visit: Yes Status: Acute Currently atrial flutter. See plan above. Qualifiers: Atrial flutter type: unspecified Qualified Code(s): I48.92 - Unspecified atrial flutter (3) CAD (coronary artery disease) Current Visit: Yes Status: Acute [place] with stent 4 years ago. Continue asa, statin, and bb. Qualifiers: Coronary Disease-Associated Artery/Lesion type: [place] artery [place] vs. transplanted heart: [place] heart Associated angina: without angina Qualified Code(s): I25.10 - Atherosclerotic heart disease of [place] coronary artery without angina pectoris (4) Elevated troponin Current Visit: Yes Status: Acute Troponin 0.01, 0.13. Denies chest pain. Likely demand ischemia in the setting of of atrial fibrillation with RVR. TTE, EF preserved normal wall motion. Continue asa, statin, and betablocker. Discussion w patient/family: The assessment and plan as outlined above was discussed with the patient and/or family members who expressed understanding and agreement. All questions were answered. Thank you for involving us in the care of your patient. Please call with any questions. Subjective Principal diagnosis: Afib, PNA Interval history: Pt sleeping all morning and drowsy. Objective Vital Signs, Last 4 Hours Temp Pulse Resp BP Pulse Ox 10/13/16 08:15 88 10/13/16 07:31 97.9 F 80 24 117/64 99 General: Conversant, No Apparent Distress, Other (Mildly confused, drowsy this morning.) HEENT: Atraumatic, Normocephaly, Mucus Membranes Moist Neck: No JVD, Normal carotid pulses Cardiac: Other (Irregularly irregular. ) Lungs: Other (diminished) Neuro: Alert and responsive, No focal deficits noted Abdomen: Soft, Non-Tender Skin: No rashes noted on visualized skin Musculoskeletal: No Chest Wall Tenderness Extremities: No Clubbing, No Cyanosis, No Edema, Normal Pulses Results 10/13/16 05:41 10/13/16 06:34 Lab Results 10/13/16 10/13/16 05:41 06:34 WBC 9.0 Hgb 13.3 Hct 39.8 Plt Count 125 L Sodium 136 Potassium 3.3 L Chloride 98 Carbon Dioxide 32 H BUN 6 L Creatinine 0.74 Glucose 399 H Calcium 8.1 L Total Bilirubin 0.4 AST 17 ALT 9 Alkaline Phosphatase 60 - Imaging and Cardiology Echo: report reviewed Holter: report reviewed - EKG Interpretation EKG results cardiology: other (Telemetry review shows avh HR 79 bpm. HR currently 57. Lowest HR was 30 bpm at 0952 am while patient was sleeping. Hr maximum was 150 bpm at 0130.) - VTE Documentation of Mechanical Device: Graduated compression elastic hosiery Consult Discharge Plan - Plan Referrals: Jenelle De Luna DO [Primary Care Provider] - 10/16/16 9:30 am Francois Mcneil MD [Partnered Physician] - 10/26/16 10:00 am
--- NOTE | 2016-10-13 12:48 | Internal Med Progress Note ---
Date of Encounter: 10/13/16 Time of Encounter: 11:45 - Assessment and plan (1) Acute metabolic encephalopathy Current Visit: Yes Status: Acute Assessment and plan: From Co2 narcosis Patient is now awake, alert and oriented X3 VBG done today showed improvement n Co2 Continue to monitor (2) Acute respiratory failure with hypercapnia Current Visit: Yes Status: Acute Assessment and plan: Likely related to pneumonia as well as A. fib. Improved Continue current management (3) Atrial fibrillation with RVR Current Visit: Yes Status: Acute Assessment and plan: Likely related to underlying infection. D/C amiodarone drip Continue po amiodarone, short-acting CCB, Lopressor On Eliquis for anticoagulation, continue same TTE: EF 70%, AV sclerosis, mild TR, mild PH TSH low, Free T4 normal LFT WNL (4) CAD (coronary artery disease) Current Visit: Yes Status: Chronic Assessment and plan: [place] with stent 4 years ago. Continue asa, statin, and bb. Qualifiers: Coronary Disease-Associated Artery/Lesion type: [place] artery [place] vs. transplanted heart: [place] heart Associated angina: without angina Qualified Code(s): I25.10 - Atherosclerotic heart disease of [place] coronary artery without angina pectoris (5) Elevated troponin Current Visit: Yes Status: Acute Assessment and plan: Troponin 0.01, 0.13 secondary to demand ischemia No WMA on ECHO (6) Pneumonia due to aerobic bacteria Current Visit: Yes Status: Acute Assessment and plan: Levoflox day 4 (q48H )regimen (7) Hypertension Current Visit: Yes Status: Chronic Assessment and plan: Controlled Qualifiers: Hypertension type: essential hypertension Qualified Code(s): I10 - Essential (primary) hypertension (8) Diastolic CHF Current Visit: Yes Status: Inactive Qualifiers: Congestive heart failure chronicity: chronic Qualified Code(s): I50.32 - Chronic diastolic (congestive) heart failure - Subjective Interval history: 86 Y/O F on admission for management of Community acquire pneumonia Hospital stay complicated by Acute metabolic encephalopathy from CO2 narcosis, Acute hypercapneic respiratory failure, Afib with RVR, elevated troponins from demand ischemia She also has a PMH of HTN, CHFpEF, CAD She is seen at bedside has no new complains HR in past 24 hrs ranged from 30-125 Rhythm fluctuating between NSR/Aflutter-fib Patient is asymptomatic FS elevated due to D5 D/C amiodarone Replace K Decrease Cardizem Start po amio per cardio Will observe overnight due to these medication changes Anticipate d/ a.m if patient remains stable - Constitutional Vitals: Temp Pulse Resp BP Pulse Ox 98.2 F 72 26 93/59 99 10/13/16 11:14 10/13/16 11:44 10/13/16 11:14 10/13/16 11:14 10/13/16 11:14 General appearance: Present: cooperative, A&O X 3, pleasant, no acute distress, underweight - Head Head exam: Present: atraumatic, normocephalic - Eye Eye exam: Present: PERRL, conjuntiva pink, sclera anicteric Pupils: Present: PERRL - Neck Neck exam general surgery: Present: supple, trachea midline. Absent: lymphadenopathy - Respiratory Respiratory exam: Present: CTAB. Absent: accessory muscle use, rales, rhonchi, wheezes - Cardiovascular Cardiovascular exam: Present: irregular rhythm, +S1, +S2. Absent: diastolic murmur, gallop, rubs, systolic murmur - GI/Abdominal GI/Abdominal exam: Present: normal bowel sounds, soft, no peritoneal signs. Absent: distended, tenderness - Extremities Exam Extremities exam: Present: warm, radial pulses palpable and symetrical. Absent : calf tenderness, cyanotic, pedal edema - Neurological Exam Neurological exam: Present: CN II-XII intact, oriented X3, no focal deficits. Absent: pronater drift, facial droop, speech deficit - Skin Skin exam: Present: dry Internal Medicine: Result - Labs CBC & Chem 7: 10/13/16 05:41 10/13/16 06:34 Labs: Short CBC 10/13/16 Range/Units 05:41 WBC 9.0 (4.3-11.1) K/mcL Hgb 13.3 (11.5-15.4) g/dL Hct 39.8 (35.3-44.9) % Plt Count 125 L (140-400) K/mcL Neutrophils # 7.7 (1.6-8.9) K/mcL BMP 10/13/16 06:34 Sodium 136 Potassium 3.3 L Chloride 98 Carbon Dioxide 32 H BUN 6 L Creatinine 0.74 Glucose 399 H Calcium 8.1 L Liver Function 10/13/16 Range/Units 06:34 Total Bilirubin 0.4 (0.2-1.2) mg/dL AST 17 (5-34) Units/L ALT 9 (0-55) Units/L Alkaline Phosphatase 60 (38-126) Units/L Albumin 3.3 L (3.5-5.0) g/dL - ABG Interpretation ABG results: ABG ABG pH 7.34 pH Units (7.32-7.45) 10/11/16 19:06 ABG pCO2 72 mmHg (35-45) H* 10/11/16 19:06 ABG pO2 179 mmHg (85-104) H 10/11/16 19:06 ABG O2 Saturation 100 % (95-98) H 10/11/16 19:06 PT/INR, D-dimer PT 13.4 Seconds (9.4-12.1) H 10/09/16 21:25 - VTE Documentation of Mechanical Device: Graduated compression elastic hosiery Consult Discharge Plan - Plan Referrals: Jenelle De Luna DO [Primary Care Provider] - 10/16/16 9:30 am Francois Mcneil MD [Partnered Physician] - 10/26/16 10:00 am
[2016-10-13] MEDS: levoFLOXacin 750 MG TABLET PO SCH (15:10)
[2016-10-13] MEDS: *HR* Metoprolol 5 MG/5 ML VIAL IVP PRN ×2 (16:45→19:17)
[2016-10-13] MEDS: Acetaminophen 325 MG TABLET PO PRN (23:23)
[2016-10-14] MEDS: *HR* Metoprolol 5 MG/5 ML VIAL IVP PRN ×2 (05:43→08:30)
[2016-10-14] MEDS: Dorzolamide OPTH 10 ML BOTTLE BOTH EYES SCH ×3 (08:10→21:40)
[2016-10-14] MEDS: CarBAMazepine XR (12 hr) 100 MG TAB PO SCH ×2 (08:16→21:31)
[2016-10-14] MEDS: Aspirin Enteric Coated 81 MG Tablet PO SCH (08:18)
[2016-10-14] MEDS: Loratadine 10 MG TABLET PO SCH (08:21)
[2016-10-14] MEDS: Gabapentin 100 MG CAPSULE PO SCH ×3 (08:22→21:31)
[2016-10-14] MEDS: cloNIDine HCl 0.1 MG TABLET PO SCH ×2 (08:23→21:31)
[2016-10-14] MEDS: *HR* Amiodarone 200 MG TABLET PO SCH (08:23)
[2016-10-14] MEDS: APIXABAN 5 MG TABLET PO SCH ×2 (08:24→21:30)
--- NOTE | 2016-10-14 08:24 | Internal Med Progress Note ---
Date of Encounter: 10/14/16 Time of Encounter: 08:23 - Assessment and plan (1) Acute metabolic encephalopathy Current Visit: Yes Status: Acute Assessment and plan: From Co2 narcosis Patient is now awake, alert and oriented X3 Clinical and lab improvement noted Continue to monitor (2) Acute respiratory failure with hypercapnia Current Visit: Yes Status: Acute Assessment and plan: Likely related to pneumonia as well as A. fib. Improved Continue current management (3) Atrial fibrillation with RVR Current Visit: Yes Status: Acute Assessment and plan: Likely related to underlying infection. D/C amiodarone drip Continue po amiodarone, short-acting CCB, Lopressor On Eliquis for anticoagulation, continue same TTE: EF 70%, AV sclerosis, mild TR, mild PH TSH low, Free T4 normal LFT WNL (4) CAD (coronary artery disease) Current Visit: Yes Status: Chronic Assessment and plan: [place] with stent 4 years ago. Continue asa, statin, and bb. Qualifiers: Coronary Disease-Associated Artery/Lesion type: [place] artery [place] vs. transplanted heart: [place] heart Associated angina: without angina Qualified Code(s): I25.10 - Atherosclerotic heart disease of [place] coronary artery without angina pectoris (5) Elevated troponin Current Visit: Yes Status: Acute Assessment and plan: Troponin 0.01, 0.13 secondary to demand ischemia No WMA on ECHO (6) Pneumonia due to aerobic bacteria Current Visit: Yes Status: Acute Assessment and plan: Levoflox day 4 (q48H )regimen, continue same (7) Hypertension Current Visit: Yes Status: Chronic Assessment and plan: Controlled Qualifiers: Hypertension type: essential hypertension Qualified Code(s): I10 - Essential (primary) hypertension (8) Diastolic CHF Current Visit: Yes Status: Inactive Qualifiers: Congestive heart failure chronicity: chronic Qualified Code(s): I50.32 - Chronic diastolic (congestive) heart failure - Subjective Interval history: 86 Y/O F on admission for management of Community acquire pneumonia Hospital stay complicated by Acute metabolic encephalopathy from CO2 narcosis, Acute hypercapneic respiratory failure, Afib with RVR, elevated troponins from demand ischemia She also has a PMH of HTN, CHFpEF, CAD She is seen at bedside with her son Patient denies new complains But i very agitated and anxious, complaining about the hospital food HR ranged from 126-150 and BP 185/120 Will give an additional dose of 30mg po diltiazem and IV lopressor push Patient may need a medication for anxiety Will increase cardizem to 60mg po q6hr Continue telemetry - Constitutional Vitals: Temp Pulse Resp BP Pulse Ox 99.7 F H 116 30 181/125 94 L 10/14/16 07:30 10/14/16 07:30 10/14/16 07:30 10/14/16 07:30 10/14/16 07:30 General appearance: Present: cooperative, A&O X 3, pleasant, no acute distress, underweight - Head Head exam: Present: atraumatic, normocephalic - Eye Eye exam: Present: PERRL, conjuntiva pink, sclera anicteric Pupils: Present: PERRL - Neck Neck exam general surgery: Present: supple, trachea midline. Absent: lymphadenopathy - Respiratory Respiratory exam: Present: CTAB - Cardiovascular Cardiovascular exam: Present: irregular rhythm, +S1, +S2, tachycardia - GI/Abdominal GI/Abdominal exam: Present: normal bowel sounds, soft, no peritoneal signs. Absent: distended, tenderness - Extremities Exam Extremities exam: Present: warm, radial pulses palpable and symetrical. Absent : calf tenderness, cyanotic, pedal edema - Neurological Exam Neurological exam: Present: CN II-XII intact, oriented X3, no focal deficits. Absent: pronater drift, facial droop, speech deficit - Skin Skin exam: Present: dry, intact Internal Medicine: Result - Labs CBC & Chem 7: 10/13/16 05:41 10/14/16 05:54 Labs: BMP 10/14/16 05:54 Potassium 4.1 - ABG Interpretation ABG results: ABG ABG pH 7.34 pH Units (7.32-7.45) 10/11/16 19:06 ABG pCO2 72 mmHg (35-45) H* 10/11/16 19:06 ABG pO2 179 mmHg (85-104) H 10/11/16 19:06 ABG O2 Saturation 100 % (95-98) H 10/11/16 19:06 PT/INR, D-dimer PT 13.4 Seconds (9.4-12.1) H 10/09/16 21:25 - VTE Documentation of Mechanical Device: Graduated compression elastic hosiery Consult Discharge Plan - Plan Referrals: Jenelle De Luna DO [Primary Care Provider] - 10/16/16 9:30 am Francois Mcneil MD [Partnered Physician] - 10/26/16 10:00 am
[2016-10-14] MEDS ORDERED: *HR* Metoprolol 5 MG/5 ML VIAL IVP ONE (08:38)
[2016-10-14] MEDS: *HR* LORazepam 0.5 MG TABLET PO PRN (08:57)
--- NOTE | 2016-10-14 10:43 | Cardiology Progress Note ---
Date of Encounter: 10/14/16 Time of Encounter: 10:00 Assessment and Plan (1) Atrial fibrillation with RVR Current Visit: Yes Status: Acute Reported new onset atrial fibrillation in the setting of acute PNA. Now atrial flutter on telemetry. She is asymptomatic. Recommend rate control strategy at this time. Expect difficult to control heart rates with patient's respiratory distress and confusion/agitation. Agree with increasing Cardizem at this time. Continue to monitor telemetry. 12 hour telemetry review shows avg HR 101 bpm. HR currently 74 bpm atrial flutter. Hr maximum was 150 bpm at 0842 this morning. Heart rate has improved after given increased dose of Cardizem and IV Lopressor. She was also given Ativan. Continue oral amiodarone and metoprolol. TTE: EF 70%, AV sclerosis, mild TR, mild PH TSH low---defer mgmt to primary service. AST and AST are normal. CHA2Ds Vasc= 5 (female, age, CAD, DMII, HTN). Discussed AC options including NOAC vs. coumadin with son initially and eliquis 2.5 mg BID started. Discussed with Dr. Beck who agrees with above plan. We will continue to monitor telemetry with you. (2) Atrial flutter Current Visit: Yes Status: Acute Currently atrial flutter. Presented in atrial fibrillation. See plan above. Qualifiers: Atrial flutter type: unspecified Qualified Code(s): I48.92 - Unspecified atrial flutter (3) CAD (coronary artery disease) Current Visit: Yes Status: Chronic [place] with stent 4 years ago. Continue asa, statin, and bb. She denies chest pain. Qualifiers: Coronary Disease-Associated Artery/Lesion type: [place] artery [place] vs. transplanted heart: [place] heart Associated angina: without angina Qualified Code(s): I25.10 - Atherosclerotic heart disease of [place] coronary artery without angina pectoris (4) Elevated troponin Current Visit: Yes Status: Acute Troponin 0.01, 0.13. Denies chest pain. Likely demand ischemia in the setting of of atrial fibrillation with RVR. TTE, EF preserved normal wall motion. Continue asa, statin, and betablocker. (5) Hypertension Current Visit: Yes Status: Chronic Uncontrolled hypertension. Given IV Lopressor earlier this morning. Consider adding lisinopril if needed. Qualifiers: Hypertension type: essential hypertension Qualified Code(s): I10 - Essential (primary) hypertension Discussion w patient/family: The assessment and plan as outlined above was discussed with the patient and/or family members who expressed understanding and agreement. All questions were answered. Thank you for involving us in the care of your patient. Please call with any questions. Subjective Principal diagnosis: Afib, PNA Interval history: Care discussed with Dr. Dowd. Apparently patient became confused and was yelling out overnight. Heart rates increased up to 150s. Cardizem was again increased and she was given IV Lopressor for elevated blood pressures. On my exam this morning she is confused. She does not converse very well. She does follow commands. Objective Vital Signs, Last 4 Hours Temp Pulse Resp BP Pulse Ox 10/14/16 08:00 99.7 F H 116 30 181/125 94 L 10/14/16 07:30 99.7 F H 116 30 181/125 94 L General: Other (Does not engage in conversation. Appears mildly confused.) HEENT: Atraumatic, Normocephaly, Mucus Membranes Moist Neck: No JVD, Normal carotid pulses Cardiac: Other (Irregularly irregular with heart rates running 100 to 1:15 during my exam.) Lungs: Normal Breath Sounds (Fine Rales scattered throughout, expiratory wheezes , noted to be tachypneic.), No Wheeze, Rales, Rhonchi Neuro: Alert and responsive, No focal deficits noted Abdomen: Soft, Non-Tender Skin: No rashes noted on visualized skin Musculoskeletal: No Chest Wall Tenderness Extremities: No Clubbing, No Cyanosis, No Edema, Normal Pulses Results 10/13/16 05:41 10/14/16 05:54 Lab Results 10/14/16 05:54 Potassium 4.1 - EKG Interpretation EKG results cardiology: other (Average heart rate was 101 atrial flutter/Afib. Maximum heart rate was at 8:42 AM at 150 bpm this morning. Current heart rate is 74 bpm atrial flutter.) - VTE Documentation of Mechanical Device: Graduated compression elastic hosiery Consult Discharge Plan - Plan Referrals: Jenelle De Luna DO [Primary Care Provider] - 10/16/16 9:30 am Francois Mcneil MD [Partnered Physician] - 10/26/16 10:00 am
[2016-10-14] MEDS: Levalbuterol Neb 0.63 MG/3 ML IH SCH ×4 (11:33→21:02)
[2016-10-14] MEDS: dilTIAZem HCl 60 MG TABLET PO SCH ×2 (15:45→23:58)
[2016-10-15] MEDS: Levalbuterol Neb 0.63 MG/3 ML IH SCH ×4 (03:49→22:45)
[2016-10-15] MEDS: Loratadine 10 MG TABLET PO SCH (08:05)
[2016-10-15] MEDS: CarBAMazepine XR (12 hr) 100 MG TAB PO SCH ×2 (08:05→20:56)
[2016-10-15] MEDS: *HR* Amiodarone 200 MG TABLET PO SCH (08:05)
[2016-10-15] MEDS: Gabapentin 100 MG CAPSULE PO SCH ×3 (08:05→20:56)
[2016-10-15] MEDS: cloNIDine HCl 0.1 MG TABLET PO SCH ×2 (08:05→20:56)
[2016-10-15] MEDS: dilTIAZem HCl 60 MG TABLET PO SCH ×3 (08:05→23:50)
[2016-10-15] MEDS: APIXABAN 5 MG TABLET PO SCH ×2 (08:05→20:57)
[2016-10-15] MEDS: Aspirin Enteric Coated 81 MG Tablet PO SCH (08:06)
[2016-10-15] MEDS: Dorzolamide OPTH 10 ML BOTTLE BOTH EYES SCH ×3 (08:08→21:01)
--- NOTE | 2016-10-15 12:27 | Cardiology Progress Note ---
Date of Encounter: 10/15/16 Time of Encounter: 12:25 Assessment and Plan (1) Atrial fibrillation with RVR Current Visit: Yes Status: Acute Reported new onset atrial fibrillation in the setting of acute PNA. Now atrial flutter on telemetry. She is asymptomatic. Recommend rate control strategy at this time. Expect difficult to control heart rates with patient's respiratory distress and confusion/agitation. 12 hour telemetry review shows avg HR 88 bpm. HR currently 70's atrial flutter. Hr maximum was 130 bpm at 0530 this morning. Heart rate has improved after given increased dose of Cardizem. Increase to q6 hr from 8 hr dosing. Continue oral amiodarone and metoprolol. TTE: EF 70%, AV sclerosis, mild TR, mild PH TSH low---defer mgmt to primary service. AST and AST are normal. CHA2Ds Vasc= 5 (female, age, CAD, DMII, HTN). Discussed AC options including NOAC vs. coumadin with son initially and eliquis 2.5 mg BID started. Discussed with Dr. Beck who agrees with above plan. We will consider discussing ablation with electrophysiology if HR continue to be difficult to control. We will continue to monitor telemetry with you. (2) Atrial flutter Current Visit: Yes Status: Acute Currently atrial flutter. Presented in atrial fibrillation. See plan above. Qualifiers: Atrial flutter type: unspecified Qualified Code(s): I48.92 - Unspecified atrial flutter (3) CAD (coronary artery disease) Current Visit: Yes Status: Chronic [place] with stent 4 years ago. Continue asa, statin, and bb. She denies chest pain. Qualifiers: Coronary Disease-Associated Artery/Lesion type: [place] artery [place] vs. transplanted heart: [place] heart Associated angina: without angina Qualified Code(s): I25.10 - Atherosclerotic heart disease of [place] coronary artery without angina pectoris (4) Elevated troponin Current Visit: Yes Status: Acute Troponin 0.01, 0.13. Denies chest pain. Likely demand ischemia in the setting of of atrial fibrillation with RVR. TTE, EF preserved normal wall motion. Continue asa, statin, and betablocker. (5) Hypertension Current Visit: Yes Status: Chronic B/p improved. Qualifiers: Hypertension type: essential hypertension Qualified Code(s): I10 - Essential (primary) hypertension Discussion w patient/family: The assessment and plan as outlined above was discussed with the patient and/or family members who expressed understanding and agreement. All questions were answered. Thank you for involving us in the care of your patient. Please call with any questions. Subjective Principal diagnosis: Afib, PNA Interval history: Patient is hard of hearing. Denies chest pain or shortness of breath. Appears agitated when conversing with others. Objective Vital Signs, Last 4 Hours Temp Pulse Resp BP Pulse Ox 10/15/16 11:25 97.8 F 77 30 147/90 93 L 10/15/16 11:17 79 General: Conversant, No Apparent Distress HEENT: Atraumatic, Normocephaly, Mucus Membranes Moist Neck: No JVD, Normal carotid pulses Cardiac: Other (Irregularly irregular) Lungs: Other (Diminished breast sounds, less wheezing and rhonchi than yesterday.) Neuro: Alert and responsive, No focal deficits noted Abdomen: Soft, Non-Tender Skin: No rashes noted on visualized skin Musculoskeletal: No Chest Wall Tenderness Extremities: No Clubbing, No Cyanosis, No Edema, Normal Pulses Results 10/13/16 05:41 10/14/16 05:54 Lab Results 10/15/16 07:14 Troponin I 0.02 - EKG Interpretation EKG results cardiology: other (24 hour telemetry review shows average heart rate of 88 bpm. Minimum heart rate was 51 bpm. There was 2 episodes of atrial fibrillation with RVR overnight. Maximum heart rate 130 bpm.) - VTE Documentation of Mechanical Device: Graduated compression elastic hosiery Consult Discharge Plan - Plan Referrals: Jenelle De Luna DO [Primary Care Provider] - 10/16/16 9:30 am Francois Mcneil MD [Partnered Physician] - 10/26/16 10:00 am
--- NOTE | 2016-10-15 13:46 | Internal Med Progress Note ---
Date of Encounter: 10/15/16 Time of Encounter: 09:20 - Assessment and plan (1) Acute metabolic encephalopathy Current Visit: Yes Status: Acute Assessment and plan: From Co2 narcosis Patient is now awake, alert and oriented X3 Clinical and lab improvement noted Continue to monitor (2) Acute respiratory failure with hypercapnia Current Visit: Yes Status: Acute Assessment and plan: Likely related to pneumonia as well as A. fib. Improved Continue current management (3) Atrial fibrillation with RVR Current Visit: Yes Status: Acute Assessment and plan: Likely related to underlying infection. Continue po amiodarone, short-acting CCB, Lopressor On Eliquis for anticoagulation, continue same TTE: EF 70%, AV sclerosis, mild TR, mild PH TSH low, Free T4 normal LFT WNL For review by Robby Andrea a.m (4) CAD (coronary artery disease) Current Visit: Yes Status: Chronic Assessment and plan: [place] with stent 4 years ago. Continue asa, statin, and bb. Qualifiers: Coronary Disease-Associated Artery/Lesion type: [place] artery [place] vs. transplanted heart: [place] heart Associated angina: without angina Qualified Code(s): I25.10 - Atherosclerotic heart disease of [place] coronary artery without angina pectoris (5) Elevated troponin Current Visit: Yes Status: Acute Assessment and plan: Troponin 0.01, 0.13 secondary to demand ischemia No WMA on ECHO (6) Pneumonia due to aerobic bacteria Current Visit: Yes Status: Acute Assessment and plan: Levoflox day 5 (q48H )regimen, continue same (7) Hypertension Current Visit: Yes Status: Chronic Assessment and plan: Controlled Qualifiers: Hypertension type: essential hypertension Qualified Code(s): I10 - Essential (primary) hypertension (8) Diastolic CHF Current Visit: Yes Status: Inactive Qualifiers: Congestive heart failure chronicity: chronic Qualified Code(s): I50.32 - Chronic diastolic (congestive) heart failure - Subjective Interval history: 86 Y/O F on admission for management of Community acquire pneumonia Hospital stay complicated by Acute metabolic encephalopathy from CO2 narcosis, Acute hypercapneic respiratory failure, Afib with RVR, elevated troponins from demand ischemia She also has a PMH of HTN, CHFpEF, CAD She is seen at bedside Patient seems calmer today HR and BP have been acceptable Respiratory status has improved Cardiology is considering PCM vs ablation Will follow their recommendations Will continue current management - Constitutional Vitals: Temp Pulse Resp BP Pulse Ox 97.8 F 77 30 147/90 93 L 10/15/16 11:25 10/15/16 11:25 10/15/16 11:25 10/15/16 11:25 10/15/16 11:25 General appearance: Present: cooperative, A&O X 3, pleasant, no acute distress, underweight - Head Head exam: Present: atraumatic, normocephalic - Eye Pupils: Present: PERRL - Neck Neck exam general surgery: Present: supple, trachea midline. Absent: lymphadenopathy - Respiratory Respiratory exam: Present: CTAB. Absent: accessory muscle use, rales, rhonchi, wheezes - Cardiovascular Cardiovascular exam: Present: irregular rhythm, +S1, +S2. Absent: diastolic murmur, gallop, rubs, systolic murmur - GI/Abdominal GI/Abdominal exam: Present: normal bowel sounds, soft, no peritoneal signs. Absent: distended, tenderness - Extremities Exam Extremities exam: Present: warm, radial pulses palpable and symetrical. Absent : calf tenderness, cyanotic, pedal edema - Neurological Exam Neurological exam: Present: CN II-XII intact, oriented X3, no focal deficits. Absent: pronater drift, facial droop, speech deficit - Skin Skin exam: Present: dry, intact Internal Medicine: Result - Labs CBC & Chem 7: 10/13/16 05:41 10/14/16 05:54 Labs: Cardiac Enzymes 10/15/16 Range/Units 07:14 Troponin I 0.02 (0-0.03) ng/mL - ABG Interpretation ABG results: ABG ABG pH 7.34 pH Units (7.32-7.45) 10/11/16 19:06 ABG pCO2 72 mmHg (35-45) H* 10/11/16 19:06 ABG pO2 179 mmHg (85-104) H 10/11/16 19:06 ABG O2 Saturation 100 % (95-98) H 10/11/16 19:06 PT/INR, D-dimer PT 13.4 Seconds (9.4-12.1) H 10/09/16 21:25 - VTE Documentation of Mechanical Device: Graduated compression elastic hosiery Consult Discharge Plan - Plan Referrals: Jenelle De Luna DO [Primary Care Provider] - 10/16/16 9:30 am Francois Mcneil MD [Partnered Physician] - 10/26/16 10:00 am
[2016-10-15] MEDS: levoFLOXacin 750 MG TABLET PO SCH (15:52)
[2016-10-15] MEDS: *HR* LORazepam 0.5 MG TABLET PO PRN (16:19)
[2016-10-15] MEDS: *HR* Metoprolol 5 MG/5 ML VIAL IVP PRN (18:23)
[2016-10-16] MEDS: Levalbuterol Neb 0.63 MG/3 ML IH SCH ×3 (04:44→16:44)
[2016-10-16] MEDS: dilTIAZem HCl 60 MG TABLET PO SCH ×3 (06:34→17:18)
[2016-10-16] MEDS: CarBAMazepine XR (12 hr) 100 MG TAB PO SCH (08:37)
[2016-10-16] MEDS: Gabapentin 100 MG CAPSULE PO SCH ×2 (08:38→16:04)
[2016-10-16] MEDS: Loratadine 10 MG TABLET PO SCH (08:38)
[2016-10-16] MEDS: APIXABAN 5 MG TABLET PO SCH (08:38)
[2016-10-16] MEDS: *HR* Amiodarone 200 MG TABLET PO SCH (08:39)
[2016-10-16] MEDS: Aspirin Enteric Coated 81 MG Tablet PO SCH (08:39)
[2016-10-16] MEDS: cloNIDine HCl 0.1 MG TABLET PO SCH (08:39)
[2016-10-16] MEDS: Dorzolamide OPTH 10 ML BOTTLE BOTH EYES SCH ×2 (08:46→16:04)
--- NOTE | 2016-10-16 09:18 | Cardiology Progress Note ---
Date of Encounter: 10/16/16 Time of Encounter: 09:16 Assessment and Plan (1) Atrial fibrillation with RVR Current Visit: Yes Status: Acute Reported new onset atrial fibrillation in the setting of acute PNA. Now atrial flutter on telemetry. She is asymptomatic. Recommend rate control strategy at this time. Expect difficult to control heart rates with pneumonia. 12 hour telemetry review shows avg HR 94 bpm. HR currently 98-105 atrial flutter. Hr maximum was 120 bpm at 0530 this morning. Continue oral amiodarone, cardizem, and metoprolol. Overall HR better controlled. Unable to titrate meds any further d/t occasional bradycarda. She is asymptomatic. Will have to allow for occasional higher heart rates while she recovers from pnuemonia. We will have her follow in the afib clinic in one -two weeks. TTE: EF 70%, AV sclerosis, mild TR, mild PH TSH low---defer mgmt to primary service. AST and AST are normal. CHA2Ds Vasc= 5 (female, age, CAD, DMII, HTN). Discussed AC options including NOAC vs. coumadin with son initially and eliquis 2.5 mg BID started. Please call with questions. Cardiology will sign off. (2) Atrial flutter Current Visit: Yes Status: Acute Currently atrial flutter. Presented in atrial fibrillation. See plan above. Qualifiers: Atrial flutter type: unspecified Qualified Code(s): I48.92 - Unspecified atrial flutter (3) CAD (coronary artery disease) Current Visit: Yes Status: Chronic [place] with stent 4 years ago. Continue asa, statin, and bb. She denies chest pain. Qualifiers: Coronary Disease-Associated Artery/Lesion type: [place] artery [place] vs. transplanted heart: [place] heart Associated angina: without angina Qualified Code(s): I25.10 - Atherosclerotic heart disease of [place] coronary artery without angina pectoris (4) Elevated troponin Current Visit: Yes Status: Acute Troponin 0.01, 0.13. Denies chest pain. Likely demand ischemia in the setting of of atrial fibrillation with RVR. TTE, EF preserved normal wall motion. Continue asa, statin, and betablocker. (5) Hypertension Current Visit: Yes Status: Chronic B/p improved. Qualifiers: Hypertension type: essential hypertension Qualified Code(s): I10 - Essential (primary) hypertension Discussion w patient/family: The assessment and plan as outlined above was discussed with the patient and/or family members who expressed understanding and agreement. All questions were answered. Thank you for involving us in the care of your patient. Please call with any questions. Subjective Principal diagnosis: Afib, PNA Interval history: Patient is hard of hearing. Denies chest pain or shortness of breath. More alert today. No confusion see. Objective Vital Signs, Last 4 Hours Temp Pulse Resp BP Pulse Ox 10/16/16 08:53 121 10/16/16 08:50 97 10/16/16 07:00 98.4 F 120 20 148/86 96 General: Conversant, No Apparent Distress, Other (Very [place]) HEENT: Atraumatic, Normocephaly, Mucus Membranes Moist Neck: No JVD, Normal carotid pulses Cardiac: Other (Irregularly irregular. ) Lungs: Normal Breath Sounds, No Wheeze, Rales, Rhonchi, Other (Breathing easy today. Lungs with better airmovement. ) Neuro: Alert and responsive, No focal deficits noted Abdomen: Soft, Non-Tender Skin: No rashes noted on visualized skin Musculoskeletal: No Chest Wall Tenderness Extremities: No Clubbing, No Cyanosis, No Edema, Normal Pulses Results 10/13/16 05:41 10/14/16 05:54 - EKG Interpretation EKG results cardiology: other (Telemetry review shows avg HR 94 bpm. Minium was 47 bpm at 2149 pm. Maximum was 120 bpm this morning. Currently 98-105 bpm.) - VTE Documentation of Mechanical Device: Graduated compression elastic hosiery Consult Discharge Plan - Plan Referrals: Jenelle De Luna DO [Primary Care Provider] - 10/23/16 9:30 am Francois Mcneil MD [Partnered Physician] - 10/26/16 10:00 am Prescriptions: Diltiazem HCl [Cardizem] 60 mg PO Q6HR #120 tablet Amiodarone [Cordarone] 200 mg PO DAILY #30 tablet Apixaban [Eliquis] 2.5 mg PO BID #60 tablet Levofloxacin 750 mg PO Q48H #2 tablet Metoprolol [Lopressor] 50 mg PO BID #120 tablet
--- NOTE | 2016-10-16 10:09 | Discharge Summary ---
Date of Encounter: 10/16/16 Time of Encounter: 10:09 - Discharge Diagnosis (1) Acute metabolic encephalopathy Priority: Primary Status: Resolved (2) Acute respiratory failure with hypercapnia Priority: Primary Status: Resolved (3) Atrial fibrillation with RVR Priority: Primary Status: Chronic (4) CAD (coronary artery disease) Priority: Secondary Status: Chronic Qualifiers: Coronary Disease-Associated Artery/Lesion type: [place] artery [place] vs. transplanted heart: [place] heart Associated angina: without angina Qualified Code(s): I25.10 - Atherosclerotic heart disease of [place] coronary artery without angina pectoris (5) Elevated troponin Priority: Primary Status: Acute (6) Pneumonia due to aerobic bacteria Priority: Primary Status: Acute (7) Hypertension Priority: Secondary Status: Chronic Qualifiers: Hypertension type: essential hypertension Qualified Code(s): I10 - Essential (primary) hypertension (8) Diastolic CHF Priority: Secondary Status: Inactive Qualifiers: Congestive heart failure chronicity: chronic Qualified Code(s): I50.32 - Chronic diastolic (congestive) heart failure - Discharge Medications Prescriptions: Diltiazem HCl [Cardizem] 60 mg PO Q6HR #120 tablet Amiodarone [Cordarone] 200 mg PO DAILY #30 tablet Apixaban [Eliquis] 2.5 mg PO BID #60 tablet Levofloxacin 750 mg PO Q48H #2 tablet Metoprolol [Lopressor] 50 mg PO BID #120 tablet Home Medications: Alendronate Sodium 70 mg PO QWEEK 08/24/16 [History] Brimonidine Tartrate [Alphagan P] 1 drop BOTH EYES TID 08/24/16 [History] CarBAMazepine [Carbamazepine ER] 100 mg PO BID 08/24/16 [History] Dorzolamide [Trusopt] 1 drop BOTH EYES TID 08/24/16 [History] Gabapentin [Neurontin] 100 mg PO TID 08/24/16 [History] Hydrocodone/Acetaminophen [Hydrocodon-Acetaminophen 5-325] 1 tab PO Q6H PRN 01/03 [History] Loratadine [Allergy Relief] 10 mg PO DAILY 08/24/16 [History] Omeprazole [PriLOSEC] 20 mg PO DAILY #30 cap 08/24/16 [Rx] Raloxifene [Evista] 60 mg PO DAILY 08/24/16 [History] Timolol Maleate 0.5% 1 drop OP BID 08/24/16 [History] Amitriptyline [Elavil] 25 mg PO DAILY 14 Days 09/15/16 [Rx] Aspirin [Lo-Dose Aspirin EC] 81 mg PO DAILY 10/07/16 [History] CloNIDine HCl [Clonidine HCl] 0.2 mg PO BID 10/07/16 [History] Amiodarone [Cordarone] 200 mg PO DAILY #30 tablet 10/16/16 [Rx] Apixaban [Eliquis] 2.5 mg PO BID #60 tablet 10/16/16 [Rx] Diltiazem HCl [Cardizem] 60 mg PO Q6HR #120 tablet 10/16/16 [Rx] Levofloxacin 750 mg PO Q48H #2 tablet 10/16/16 [Rx] Metoprolol [Lopressor] 50 mg PO BID #120 tablet 10/16/16 [Rx] Allergies/Adverse Reactions: Allergies No Known Allergies Allergy (Verified 10/02/16 11:23) Procedures/tests Complete & Pending: Procedures Performed prior 72 hours Category Date Time Status EKG [ECG 12 lead ECG] [ECG] Routine Y 10/15/16 05:44 Completed Date of admission: 10/10/16 13:54 Primary care physician: Torres Nicholas Consults: 10/11/16 11:35 Consult to [place] [facility] [CONS] Routine Reason for SW Consult: Peng cost: Eliquis Discharging clinician: Aaron Dowd Anticipated date of discharge: 10/16/16 - Patient Status Disposition: Home, Self-Care Condition: Fair Functional capacity at discharge: independent ambulation Overall status at discharge: patient is progressing back to baseline - Discharge Instructions Instructions: Atrial Fibrillation (DC), Pneumonia (DC) Follow Up With: Jenelle De Luna DO [Primary Care Provider] - 10/23/16 9:30 am Francois Mcneil MD [Partnered Physician] - 10/26/16 10:00 am - Diet and Activity Activity: resume usual activities as tolerated Diet: low fat, low cholesterol, low salt diet Interval History: See below Hospital course: 86 Y/O F who was admitted for management of Community acquire pneumonia Hospital stay complicated by Acute metabolic encephalopathy from CO2 narcosis, Acute hypercapneic respiratory failure, Afib with RVR, elevated troponins from demand ischemia She also has a PMH of HTN, CHFpEF, CAD Patient was managed with IV antibiotics, NIPPV with improvement in her respiratory status She developed Afib with RVR requiring IV Diltiazem and subsequently Amiodarone. Her HR was initially difficult to control due to ongoing hypercapnea and hypoxia , patient very easily agitated and anxious. Cardiology was co-managing throughout hospital stay Her HR and BP has been acceptable in the past 24 hours with her current regimen- Amiodarone po , Diltiazeom po, and Lopressor. She was also started on Eliquis for legislative aide anticoagulation TTE: EF 70%, AV sclerosis, mild TR, mild PH TSH low, Free T4 normal LFT WNL Of note, she had no thyroid disease prior to admission She is seen at bedside, calm, has no complains Vitals have been stable Cardiology has cleared the patient for discharge She will be discharged home with family She require 2 more days of po levaquin [id number] to complete her antibiotic regimen Follow up with PCP and Cardiology Plan of care discussed, verbalized understanding - Time Spent with Patient Total time spent providing and/or coordinating discharge services: Greater than 30 minutes (40 minutes spent on chart revies, face to face, medication reconciliation, prescription, phone call with pharmacy.) - Constitutional Vitals: Temp Pulse Resp BP Pulse Ox 98.4 F 121 20 148/86 97 10/16/16 07:00 10/16/16 08:53 10/16/16 07:00 10/16/16 07:00 10/16/16 08:50 General appearance: Present: cooperative, A&O X 3, pleasant, no acute distress, underweight - Head Head exam: Present: atraumatic, normocephalic - Eye Eye exam: Present: PERRL, conjuntiva pink, sclera anicteric Pupils: Present: PERRL - Neck Neck exam general surgery: Present: supple, trachea midline. Absent: lymphadenopathy - Respiratory Respiratory exam: Present: CTAB. Absent: accessory muscle use, rales, rhonchi, wheezes - Cardiovascular Cardiovascular exam: Present: irregular rhythm, +S1, +S2, tachycardia - GI/Abdominal GI/Abdominal exam: Present: normal bowel sounds, soft, no peritoneal signs. Absent: distended, tenderness - Extremities Exam Extremities exam: Present: warm, radial pulses palpable and symetrical. Absent : calf tenderness, cyanotic, pedal edema - Neurological Exam Neurological exam: Present: CN II-XII intact, oriented X3, no focal deficits. Absent: pronater drift, facial droop, speech deficit - Skin Skin exam: Present: dry, intact - VTE Documentation of Mechanical Device: Graduated compression elastic hosiery
[2016-10-16 11:34] VITALS: BP 122/82
--- NOTE | 2016-10-16 15:06 | Electrocardiograph Report ---
[place] [id number] Test Date: 2016-10-15 Pat Name: Noni Grover Department: 110 Room: 2N04 Gender: F House Fellow: : [id number] Requested By: Gt Mendez Order Number: [id number] Reading MD: Praveen Bustamante Measurements Intervals [place] Rate: 105 P: [place]: 0 QRS: -81 QRSD: 125 T: 86 QT: 351 QTc: 412 Interpretive Statements ATRIAL FIBRILLATION WITH RAPID VENTRICULAR RESPONSE MARKED LEFT AXIS DEVIATION ANTEROSEPTAL MYOCARDIAL INFARCTION, OF INDETERMINATE AGE Electronically Signed On 10-16-2016 15:04:22 EST by Praveen Bustamante
== END 2016-10-16 18:13 | disposition home or self-care (01) | DRG 177 ==
LOC: 3BNU 08:37 → EMEROO 08:37 → SUATTDRO 12:48 → 3BNU 13:18 → 2NENU 10-09 20:58 → SUATTDRO 10-10 13:54 → 2NNU 10-11 14:22
PROVIDERS: ADMIT Internal Medicine; ATTEND Internal Medicine

== ENCOUNTER 2016-10-16 20:55 | Inpatient (IN) ==
--- NOTE | 2016-10-16 21:04 | Emergency Department Note ---
START Narrative - START START: I examined this patient and my medical decision-making was reviewed with the MANAGER JAVA/PA/Advanced Practice Nurse/Resident Physician. I agree with the documented findings, disposition and treatment plan as described except to the extent set forth below. ED attending note: Patient seen with emergency medicine resident Dr. Beavers. Please see a copy of his note for details of the H&P, evaluation, management and disposition of this patient. We independently had [id number] contact with the patient Briefly: 86-year-old female by EMS found on floor by son per EMS although patient cannot give us any history at this point, she is altered. Was recently treated at [facility] and discharge for atrial fibrillation she is on no questionable [place]. She has abrasion to her left supraorbital forehead. She will answer some questions but not although she is able to have an intact gag reflex. She is getting noncontrast CT of the head and neck EKG and blood work. Admission anticipated. Provided 50 minutes of critical care services for this patient. Disposition pending.
[2016-10-16] MEDS ORDERED: 0.9 % Sodium Chloride 1,000 ML IVC ONE (21:19)
--- NOTE | 2016-10-16 21:24 | Emergency Department Note ---
Disposition Clinical Impression: Atrial fibrillation with RVR Fever Qualifiers: Fever type: unspecified Qualified Code(s): R50.9 - Fever, unspecified Altered mental status Qualifiers: Altered mental status type: unspecified Qualified Code(s): R41.82 - Altered mental status, unspecified Disposition: Admitted As Inpatient Condition: Good Altered Mental Status HPI - General Chief Complaint: ED Altered Mental Status Stated Complaint: AMS Time Seen by Provider: 10/16/16 20:57 Source: family, EMS Mode of arrival: EMS Limitations: altered mental status Nursing Notes Reviewed: Yes Vital Signs Reviewed: Yes - History of Present Illness HPI Narrative: 86-year-old female presents to the ER with a chief complaint of altered mental status, fall. MD complaint: altered mental status, other (Fall) Onset (ago): Just DREDGE HAND Timing confirmed by: family member Pain Severity: none Context: other (Recent diagnosis of pneumonia and A. fib.) Associated symptoms: Reports: denies other symptoms - Related Data Home Medications Medication Instructions Recorded Confirmed Alendronate Sodium 70 mg PO QWEEK 08/24/16 10/16/16 Brimonidine Tartrate [Alphagan P] 1 drop BOTH EYES TID 08/24/16 10/16/16 CarBAMazepine [Carbamazepine ER] 100 mg PO BID 08/24/16 10/16/16 Dorzolamide [Trusopt] 1 drop BOTH EYES TID 08/24/16 10/16/16 Gabapentin [Neurontin] 100 mg PO TID 08/24/16 10/16/16 Hydrocodone/Acetaminophen 1 tab PO Q6H PRN 08/24/16 10/16/16 [Hydrocodon-Acetaminophen 5-325] Loratadine [Allergy Relief] 10 mg PO DAILY 08/24/16 10/16/16 Raloxifene [Evista] 60 mg PO DAILY 08/24/16 10/16/16 Timolol Maleate 0.5% 1 drop OP BID 08/24/16 10/16/16 Aspirin [Lo-Dose Aspirin EC] 81 mg PO DAILY 10/07/16 10/16/16 CloNIDine HCl [Clonidine HCl] 0.2 mg PO BID 10/07/16 10/16/16 Previous Rx's Medication Instructions Recorded Omeprazole [PriLOSEC] 20 mg PO DAILY #30 cap 08/24/16 Amitriptyline [Elavil] 25 mg PO DAILY 14 Days 09/15/16 Amiodarone [Cordarone] 200 mg PO DAILY #30 tablet 10/16/16 Apixaban [Eliquis] 2.5 mg PO BID #60 tablet 10/16/16 Diltiazem HCl [Cardizem] 60 mg PO Q6HR #120 tablet 10/16/16 Levofloxacin 750 mg PO Q48H #2 tablet 10/16/16 Metoprolol [Lopressor] 50 mg PO BID #120 tablet 10/16/16 Allergies Allergy/AdvReac Type Severity Reaction Status Date / Time No Known Allergies Allergy Verified 10/16/16 20:58 Limitations: ROS unobtainable due to patients medical condition (Patient is a poor historian) Past Medical History - Past Medical History Attestation: Yes The following information was validated with the patient. Source: obtained from family Medical history: Reports: atrial fibrillation, coronary artery disease, hypertension, myocardial infarction, other Surgical history: Reports: angioplasty/stent Psychiatric history: Reports: anxiety, depression ACCOUNTS EXECUTIVE history: Reports: no ACCOUNTS EXECUTIVE history - Social History Smoking Status: Never smoker Smokeless Tobacco Status: No Alcohol use: Reports: none Drug use: Reports: none Physical Exam - General Limitations: altered mental status General appearance: alert, in no apparent distress - Head Head exam: normocephalic, other (Ecchymosis over the left frontal scalp.) - Eye Eye exam: Present: normal appearance, PERRL, EOMI - ENT ENT exam: normal exam - Neck Neck exam: Present: normal inspection - Chest Chest inspection: Present: normal inspection, symmetric chest wall rise - Respiratory Respiratory exam: Present: other (Course breath sounds bilaterally with diminished breath sounds in the bases.) - Cardiovascular Cardiovascular exam: Present: tachycardia, irregular rhythm (Irregularly irregular rhythm.) - Abdominal Exam Abdominal exam: Present: soft, Non-Tender. Absent: tenderness - Extremities Exam Extremities exam: Present: normal inspection, full ROM - Expanded Lower Extremity Exam Hip/Pelvis exam: Present: normal inspection, full ROM Upper leg exam: Present: normal inspection, full ROM Knee exam: Present: normal inspection, full ROM Lower leg exam: Present: normal inspection, full ROM Ankle exam: Present: normal inspection, full ROM Foot/toe exam: Present: normal inspection, full ROM - Neurological Exam Neurological exam: Present: alert. Absent: motor sensory deficit - Expanded Neurological Exam Patient oriented to: Present: person, time Speech: Present: fluid speech Cranial nerves: EOM function (II, III, IV, ): Normal, facial sensation (V): Normal, spinal accessory function (XI): Normal, tongue deviation (XII): Normal Motor strength - LUE: 4/5 Motor strength - RUE: 4/5 Motor strength - LLE: 4/5 Motor strength - RLE: 4/5 Coma Scale Eye Opening: Spontaneous Coma Scale Motor Response: Obeys Commands Coma Scale Verbal Response: Oriented Coma Scale Total: 15 - Psychiatric Psychiatric exam: Present: normal affect, normal mood - Skin Skin exam: Present: warm, dry, intact, normal color Course Course Narrative: 86-year-old female history of recent hospitalization for pneumonia and new onset A. fib presents to the ER with a chief complaint of altered mental status and fall. Patient arrives via EMS. Family is at bedside to give history. They state that she went home this evening and that even on the way home she was not acting herself. They state that when they got home he went upstairs to check on something and heard a thud. He reports that he found the patient on the ground. EMS was called and patient was transported for evaluation. She is currently alert and oriented 2. She will answer some questions appropriately. She denies any complaints. I reviewed the patient's medical records. She was discharged on eliquis. She has bruising over the left scalp. We will get a head CT and cervical spine as well as basic labs. She is febrile tachycardic and Medicare. She meets sepsis criteria. We will obtain lactate and blood cultures 2. We will begin IV fluid resuscitation. We will also begin antibiotics once cultures have been obtained. - Reevaluation(s) Reevaluation #1: Patient remains tachycardic in the 130s to 140s. We will increase the Cardizem drip to 10 mg. Reevaluation #2: Heart rate and blood pressure have improved after Cardizem bolus. Continue to monitor closely. Vital Signs Temperature 101.3 F H 10/16/16 21:02 Pulse Rate 129 10/16/16 21:02 Respiratory Rate 16 10/16/16 21:02 Blood Pressure 155/118 10/16/16 21:02 O2 Sat by Pulse Oximetry 90 L 10/16/16 21:02 Temperature 101.3 F H 10/16/16 21:02 Pulse Rate 104 10/16/16 23:39 Respiratory Rate 24 10/16/16 23:39 Blood Pressure 122/66 10/16/16 23:39 O2 Sat by Pulse Oximetry 97 10/16/16 23:39 Oxygen Delivery Oxygen Delivery Room Air Altered Mental Status - MDM Narrative Medical decision making narrative: 86-year-old female presents to the ER status post fall and altered mental status at home. Recently discharged with pneumonia and new onset A. fib. Here she is back in A. fib RVR. Blood pressure is stable. Chest x-ray as read by radiology with developing congestive heart failure. Her BNP is slightly elevated here over 400. Troponin is negative. Her heart rate and blood pressure and been controlled with Cardizem. Patient will be admitted to the hospital for further management. - Lab Data Lab results reviewed: Yes I reviewed the patient's lab results. Result diagrams: 10/16/16 21:44 10/16/16 21:44 Lab Results 10/16/16 10/16/16 10/16/16 Range/Units 21:09 21:44 21:44 WBC 19.2 H D (4.3-11.1) K/mcL RBC 4.67 (3.82-4.97) M/mcL Hgb 14.7 (11.5-15.4) g/dL Hct 43.0 (35.3-44.9) % MCV 92.1 (83.0-100.0) fL MCH 31.5 (28.0-33.3) pg MCHC 34.2 (31.6-35.5) g/dL RDW 12.8 (11.5-14.5) % Plt Count 242 D (140-400) K/mcL MPV 10.2 (9.4-12.4) fL Immature Gran % 0.7 (0-4) % Seg Neutrophils % 93.8 % Lymphocytes % 1.0 % Monocytes % 4.2 % Eosinophils % 0.1 % Basophils % 0.2 % Neutrophils # 18.0 H (1.6-8.9) K/mcL Lymphocytes # 0.2 L (0.6-4.6) K/mcL Monocytes # 0.8 (0.0-1.3) K/mcL Eosinophils # 0.0 (0.0-0.6) K/mcL Basophils # 0.0 (0.0-0.2) K/mcL PT 19.4 H (9.4-12.1) Seconds INR 1.8 APTT 26.0 D (26.0-36.0) Seconds Sodium (136-145) mEq/L Potassium (3.5-4.5) mEq/L Chloride (98-109) mEq/L Carbon Dioxide (19-29) mEq/L BUN (7-20) mg/dL Creatinine (0.57-1.11) mg/dL Est GFR ( Amer) (> 60) Est GFR (Non-Af Amer) (> 60) BUN/Creatinine Ratio (6-26) Glucose (70-99) mg/dL POC Glucose 163 H (58-89) Calculated Osmolality (280-300) Lactic Acid (0.5-2.2) mmol/L Calcium (8.6-10.8) mg/dL Total Bilirubin (0.2-1.2) mg/dL Direct Bilirubin (0.0-0.5) mg/dL Indirect Bilirubin (0.0-1.2) mg/dL AST (5-34) Units/L ALT (0-55) Units/L Alkaline Phosphatase (38-126) Units/L Creatine Kinase (29-168) Units/L Troponin I (0-0.03) ng/mL B-Natriuretic Peptide (0-100) pg/mL Serum Total Protein (6.0-8.3) g/dL Albumin (3.5-5.0) g/dL Globulin (2.4-3.5) g/dL Albumin/Globulin Ratio (1.1-2.2) Urine Color (Yellow) Urine Clarity (Clear) Urine pH (5.0-8.0) pH Units Ur Specific [place] (1.010-1.025) Urine Protein (Neg-Trace) mg/dL Urine Glucose (UA) (Normal) mg/dL Urine Ketones (Negative) mg/dL Urine Blood (Negative) Urine Nitrite (Negative) Urine Bilirubin (Negative) Urine Urobilinogen (Normal) mg/dL Ur Leukocyte Esterase (Negative) Urine Microscopic RBC (0-3) per hpf Urine Microscopic WBC (0-3) per hpf Ur Squamous Epith Cells (None-Few) per lpf Urine Bacteria (None-Few) per hpf Hyaline Casts (None-Few) per lpf Ur Culture Indicated? (NO) Urine Opiates Screen (Vfwwhh=852) ng/mL Ur Barbiturates Screen (Agqcbf=261) ng/mL Ur Phencyclidine Scrn (Cutoff=25) ng/mL Ur Amphetamines Screen (Vsxcct=7714) ng/mL U Benzodiazepines Scrn (Qdyuxp=806) ng/mL Urine Cocaine Screen (Cutoff= 300) ng/mL U Marijuana (THC) Screen (Cutoff = 50) ng/mL 10/16/16 10/16/16 10/16/16 Range/Units 21:44 21:44 21:44 WBC (4.3-11.1) K/mcL RBC (3.82-4.97) M/mcL Hgb (11.5-15.4) g/dL Hct (35.3-44.9) % MCV (83.0-100.0) fL MCH (28.0-33.3) pg MCHC (31.6-35.5) g/dL RDW (11.5-14.5) % Plt Count (140-400) K/mcL MPV (9.4-12.4) fL Immature Gran % (0-4) % Seg Neutrophils % % Lymphocytes % % Monocytes % % Eosinophils % % Basophils % % Neutrophils # (1.6-8.9) K/mcL Lymphocytes # (0.6-4.6) K/mcL Monocytes # (0.0-1.3) K/mcL Eosinophils # (0.0-0.6) K/mcL Basophils # (0.0-0.2) K/mcL PT (9.4-12.1) Seconds INR APTT (26.0-36.0) Seconds Sodium 140 (136-145) mEq/L Potassium 4.1 (3.5-4.5) mEq/L Chloride 99 (98-109) mEq/L Carbon Dioxide 31 H (19-29) mEq/L BUN 15 (7-20) mg/dL Creatinine 0.75 (0.57-1.11) mg/dL Est GFR ( Amer) > 60 (> 60) Est GFR (Non-Af Amer) > 60 (> 60) BUN/Creatinine Ratio 20 (6-26) Glucose 164 H (70-99) mg/dL POC Glucose (58-89) Calculated Osmolality 294 (280-300) Lactic Acid 1.8 (0.5-2.2) mmol/L Calcium 9.2 (8.6-10.8) mg/dL Total Bilirubin 0.9 (0.2-1.2) mg/dL Direct Bilirubin 0.5 (0.0-0.5) mg/dL Indirect Bilirubin 0.4 (0.0-1.2) mg/dL AST 25 (5-34) Units/L ALT 19 (0-55) Units/L Alkaline Phosphatase 72 (38-126) Units/L Creatine Kinase 39 (29-168) Units/L Troponin I 0.02 (0-0.03) ng/mL B-Natriuretic Peptide (0-100) pg/mL Serum Total Protein 7.2 (6.0-8.3) g/dL Albumin 3.5 (3.5-5.0) g/dL Globulin 3.7 H (2.4-3.5) g/dL Albumin/Globulin Ratio 0.9 L (1.1-2.2) Urine Color (Yellow) Urine Clarity (Clear) Urine pH (5.0-8.0) pH Units Ur Specific [place] (1.010-1.025) Urine Protein (Neg-Trace) mg/dL Urine Glucose (UA) (Normal) mg/dL Urine Ketones (Negative) mg/dL Urine Blood (Negative) Urine Nitrite (Negative) Urine Bilirubin (Negative) Urine Urobilinogen (Normal) mg/dL Ur Leukocyte Esterase (Negative) Urine Microscopic RBC (0-3) per hpf Urine Microscopic WBC (0-3) per hpf Ur Squamous Epith Cells (None-Few) per lpf Urine Bacteria (None-Few) per hpf Hyaline Casts (None-Few) per lpf Ur Culture Indicated? (NO) Urine Opiates Screen (Piomti=571) ng/mL Ur Barbiturates Screen (Sdznjo=623) ng/mL Ur Phencyclidine Scrn (Cutoff=25) ng/mL Ur Amphetamines Screen (Brnmxu=7094) ng/mL U Benzodiazepines Scrn (Owvnpg=185) ng/mL Urine Cocaine Screen (Cutoff= 300) ng/mL U Marijuana (THC) Screen (Cutoff = 50) ng/mL 02/27/17 02/27/17 02/27/17 Range/Units 21:44 23:05 23:05 WBC (4.3-11.1) K/mcL RBC (3.82-4.97) M/mcL Hgb (11.5-15.4) g/dL Hct (35.3-44.9) % MCV (83.0-100.0) fL MCH (28.0-33.3) pg MCHC (31.6-35.5) g/dL RDW (11.5-14.5) % Plt Count (140-400) K/mcL MPV (9.4-12.4) fL Immature Gran % (0-4) % Seg Neutrophils % % Lymphocytes % % Monocytes % % Eosinophils % % Basophils % % Neutrophils # (1.6-8.9) K/mcL Lymphocytes # (0.6-4.6) K/mcL Monocytes # (0.0-1.3) K/mcL Eosinophils # (0.0-0.6) K/mcL Basophils # (0.0-0.2) K/mcL PT (9.4-12.1) Seconds INR APTT (26.0-36.0) Seconds Sodium (136-145) mEq/L Potassium (3.5-4.5) mEq/L Chloride (98-109) mEq/L Carbon Dioxide (19-29) mEq/L BUN (7-20) mg/dL Creatinine (0.57-1.11) mg/dL Est GFR ( Amer) (> 60) Est GFR (Non-Af Amer) (> 60) BUN/Creatinine Ratio (6-26) Glucose (70-99) mg/dL POC Glucose (58-89) Calculated Osmolality (280-300) Lactic Acid (0.5-2.2) mmol/L Calcium (8.6-10.8) mg/dL Total Bilirubin (0.2-1.2) mg/dL Direct Bilirubin (0.0-0.5) mg/dL Indirect Bilirubin (0.0-1.2) mg/dL AST (5-34) Units/L ALT (0-55) Units/L Alkaline Phosphatase (38-126) Units/L Creatine Kinase (29-168) Units/L Troponin I (0-0.03) ng/mL B-Natriuretic Peptide 485 H (0-100) pg/mL Serum Total Protein (6.0-8.3) g/dL Albumin (3.5-5.0) g/dL Globulin (2.4-3.5) g/dL Albumin/Globulin Ratio (1.1-2.2) Urine Color Yellow (Yellow) Urine Clarity Clear (Clear) Urine pH 7.0 (5.0-8.0) pH Units Ur Specific [place] 1.013 (1.010-1.025) Urine Protein Trace (Neg-Trace) mg/dL Urine Glucose (UA) 100 H (Normal) mg/dL Urine Ketones Trace H (Negative) mg/dL Urine Blood Trace H (Negative) Urine Nitrite Negative (Negative) Urine Bilirubin Negative (Negative) Urine Urobilinogen Normal (Normal) mg/dL Ur Leukocyte Esterase Negative (Negative) Urine Microscopic RBC 0-3 (0-3) per hpf Urine Microscopic WBC 0-3 (0-3) per hpf Ur Squamous Epith Cells None Seen (None-Few) per lpf Urine Bacteria None Seen (None-Few) per hpf Hyaline Casts None Seen (None-Few) per lpf Ur Culture Indicated? NO (NO) Urine Opiates Screen Negative (Uydmwo=923) ng/mL Ur Barbiturates Screen Negative (Rlmyaz=975) ng/mL Ur Phencyclidine Scrn Negative (Cutoff=25) ng/mL Ur Amphetamines Screen Negative (Tlovem=7915) ng/mL U Benzodiazepines Scrn Negative (Ckonry=838) ng/mL Urine Cocaine Screen Negative (Cutoff= 300) ng/mL U Marijuana (THC) Screen Negative (Cutoff = 50) ng/mL - Radiology Data Radiology results reviewed: Yes I reviewed the patient's radiology results. Chest X-Ray 10/16/16 20:58 IMPRESSION: Interval development of bilateral airspace disease slightly more pronounced on the right than the left with small pleural effusions right larger than left. Findings likely represent congestive heart failure. D/ / 10/16/2016 21:19:04 Juan Butler MD / loy Interpreting Provider: Juan Butler MD Head CT 10/16/16 20:58 IMPRESSION: No acute intracranial abnormality. D/ / Adal Francisco MD / Adal Francisco MD Interpreting Provider: Adal Francisco MD Cervical Spine CT 10/16/16 21:01 IMPRESSION: Multilevel degenerative changes. No acute osseous abnormality. Moderate right-sided pleural effusion, increased compared to prior from October 09. Improving right upper lobe airspace disease. D/ / Barb Hammond MD / Barb Hammond MD Interpreting Provider: Barb Hammond MD - EKG Data EKG attestation: Yes I reviewed and interpreted this EKG. EKG results narrative: EKG demonstrates atrial fibrillation with rapid ventricular response with a rate of 118. Left axis deviated. QRS duration 121 QTC 379. J-point elevations in leads V3 through V5 unchanged from previous. T-wave inversions in lead 1. Significant changes from previous EKG include atrial fibrillation. TPA Checklist - LKW: 3-4.5 hrs Add. Contraindications Patient/family understanding: The patient/family members have been counseled and understood the risk, benefit , and alternatives of treatment.
[2016-10-16 21:52] LABS: Basophils % 0.2 %; Eosinophils % 0.1 %; Hemoglobin 14.7 g/dL (11.5-15.4); Immature Granulocytes % 0.7 % (0-4); Lymphocytes # 0.2 K/mcL (0.6-4.6); Mean Corpuscular HGB Conc 34.2 g/dL (31.6-35.5); Mean Corpuscular Hemoglobin 31.5 pg (28.0-33.3); Mean Corpuscular Volume 92.1 fL (83.0-100.0); Mean Platelet Volume 10.2 fL (9.4-12.4); Monocytes # 0.8 K/mcL (0.0-1.3); Monocytes % 4.2 %; Platelet Count 242 K/mcL (140-400); Red Blood Count 4.67 M/mcL (3.82-4.97); Red Cell Distribution Width 12.8 % (11.5-14.5); Segmented Neutrophils % 93.8 %
[2016-10-16 21:59] LABS: INR 1.8; Prothrombin Time 19.4 Seconds (9.4-12.1)
[2016-10-16 22:08] LABS: Alanine Aminotransferase 19 Units/L (0-55); Albumin 3.5 g/dL (3.5-5.0); Albumin/Globulin Ratio 0.9 (1.1-2.2); Alkaline Phosphatase 72 Units/L (38-126); Aspartate Amino Transferase 25 Units/L (5-34); BUN/Creatinine Ratio 20 (6-26); Bilirubin,Direct 0.5 mg/dL (0.0-0.5); Bilirubin,Indirect 0.4 mg/dL (0.0-1.2); Bilirubin,Total 0.9 mg/dL (0.2-1.2); Blood Urea Nitrogen 15 mg/dL (7-20); Calcium 9.2 mg/dL (8.6-10.8); Carbon Dioxide 31 mEq/L (19-29); Chloride 99 mEq/L (98-109); Creatine Kinase 39 Units/L (29-168); Globulin 3.7 g/dL (2.4-3.5); Glucose 164 mg/dL (70-99); Osmolality,Calculated 294 (280-300); Potassium 4.1 mEq/L (3.5-4.5); Sodium 140 mEq/L (136-145); Total Protein 7.2 g/dL (6.0-8.3); eGFR For African Americans > 60 (> 60); eGFR For Non-African Americans > 60 (> 60)
[2016-10-16] MEDS ORDERED: niCARdipine 40 MG/200 ML MLS IVC SCH (22:45)
[2016-10-16] MEDS ORDERED: Furosemide 20 MG/2 ML VIAL IVP ONE (22:46)
[2016-10-16 23:15] LABS: Bilirubin,Urine Negative (Negative); Blood,Urine Trace (Negative); Clarity,Urine Clear (Clear); Color,Urine Yellow (Yellow); Glucose,Urine (UA) 100 mg/dL (Normal); Ketones,Urine Trace mg/dL (Negative); Leukocyte Esterase,Urine Negative (Negative); Nitrite,Urine Negative (Negative); Protein,Urine Trace mg/dL (Neg-Trace); Specific Gravity,Urine 1.013 (1.010-1.025); Urobilinogen,Urine Normal (Normal)
[2016-10-16 23:17] LABS: Bacteria,Urine None Seen per hpf (None-Few); Hyaline Casts,Urine None Seen per lpf (None-Few); RBC,Urine 0-3 per hpf (0-3); Squamous Epithelial Cell,Urine None Seen per lpf (None-Few); WBC,Urine 0-3 per hpf (0-3)
[2016-10-16 23:20] LABS: Amphetamine Screen,Urine Negative ng/mL (Cutoff=1000); Barbiturate Screen,Urine Negative ng/mL (Cutoff=200); Benzodiazepines Screen,Urine Negative ng/mL (Cutoff=200); Cannabinoid Screen,Urine Negative ng/mL (Cutoff = 50); Cocaine Screen,Urine Negative ng/mL (Cutoff= 300); Opiate Screen,Urine Negative ng/mL (Cutoff=300); Phencyclidine Screen,Urine Negative ng/mL (Cutoff=25)
[2016-10-16] MEDS ORDERED: Piperacillin/Tazobactam 3.375 GM in D5% in Water (Mini-Bag+) 100 ML IVPB ONE (23:26)
[2016-10-17] MEDS ORDERED: Naloxone 0.4 MG/ML INJ IVP PRN (03:15)
[2016-10-17] MEDS ORDERED: Ondansetron 4 MG/2 ML VIAL IVP PRN (03:15)
--- NOTE | 2016-10-17 03:31 | Internal Med History&Physical ---
Date of Encounter: 10/17/16 Time of Encounter: 03:05 Assessment and Plan (1) Atrial fibrillation with RVR Current visit: Yes Status: Acute 1. Pt currently on Cardizem drip. 2. Adjust cardizem to control rate. 3. May need cardiology consult as she was just diagnosed with Atrial Fibrillation recently and may need further medication adjustment. 4. Hold Eliquis due to fall and head contusion. 5. Likely etiology for syncope. (2) Aspiration pneumonia Current visit: Yes Status: Acute 1. Will treat with Zosyn. 2. Follow cultures and clinical course. 3. Supportive measures as necessary. Qualifiers: Aspiration pneumonia type: unspecified Laterality: bilateral Lung location: lower lobe of lung Qualified Code(s): J69.0 - Pneumonitis due to inhalation of food and vomit (3) CAD (coronary artery disease) Current visit: No Status: Chronic 1. Continue home meds as appropriate. 2. Monitor clinically. Qualifiers: Coronary Disease-Associated Artery/Lesion type: [place] artery [place] vs. transplanted heart: [place] heart Associated angina: without angina Qualified Code(s): I25.10 - Atherosclerotic heart disease of [place] coronary artery without angina pectoris (4) Contusion of forehead Current visit: Yes Status: Acute 1. Neurochecks Q2H. 2. Hold Eliquis. 3. CT head negative. Qualifiers: Encounter type: initial encounter Qualified Code(s): S00.83XA - Contusion of other part of head, initial encounter (5) DVT prophylaxis Current visit: Yes Status: Acute 1. Heparin SQ. Internal Medicine - H&P: HPI Chief complaint: syncope; atrial fib Admitted From: Emergency Dept Plans for Post Hospital Care: Home History of present illness: Ms. Grover is a 86 year old female who presents to the ER today by squad after having sustained a true syncopal spell. She was just discharged from the hospital yesterday after a hospital course for pneumonia and atrial fibrillation. Apparently, her family member found her passed out on the floor after they heard a thud upstairs. She was brought in by squad and was noted to have atrial fibrillation with rapid ventricular response. She was started on Cardizem drip and currently is rate controlled. She also had a contusion to her left forehead. CT of the head was negative. There is also a concern that she might have aspirated given her x-ray findings. Upon my assessment of the patient, she is quite somnolent, but she is easily arousable to pain or loud stimuli. She does not cooperate with his history and exam, however. She is sleepy and is pushing me away so she can sleep. She will not answer any of my questions. However, she does respond appropriately to all stimuli. Unfortunately, there are no family members present to confirm any findings. Past Med Surg Social Fam HX - Past Medical History Source: old records reviewed, nursing notes reviewed Medical history: atrial fibrillation, coronary artery disease, hypertension, myocardial infarction, other Psychiatric history: anxiety, depression - Past Surgical History Surgical History: angioplasty/stent - Social History Smoking Status: Never smoker Smokeless Tobacco Status: No Alcohol use: none Drug use: none Current living situation: Home, With Family - Family History Mother History Unknown: Yes Father History Unknown: Yes Internal Medicine - H&P: Meds Alendronate Sodium 70 mg PO QWEEK 08/24/16 [History] Brimonidine Tartrate [Alphagan P] 1 drop BOTH EYES TID 08/24/16 [History] CarBAMazepine [Carbamazepine ER] 100 mg PO BID 08/24/16 [History] Dorzolamide [Trusopt] 1 drop BOTH EYES TID 08/24/16 [History] Gabapentin [Neurontin] 100 mg PO TID 08/24/16 [History] Hydrocodone/Acetaminophen [Hydrocodon-Acetaminophen 5-325] 1 tab PO Q6H PRN 01/03 [History] Loratadine [Allergy Relief] 10 mg PO DAILY 08/24/16 [History] Omeprazole [PriLOSEC] 20 mg PO DAILY #30 cap 08/24/16 [Rx] Raloxifene [Evista] 60 mg PO DAILY 08/24/16 [History] Timolol Maleate 0.5% 1 drop OP BID 08/24/16 [History] Amitriptyline [Elavil] 25 mg PO DAILY 14 Days 09/15/16 [Rx] Aspirin [Lo-Dose Aspirin EC] 81 mg PO DAILY 10/07/16 [History] CloNIDine HCl [Clonidine HCl] 0.2 mg PO BID 10/07/16 [History] Amiodarone [Cordarone] 200 mg PO DAILY #30 tablet 10/16/16 [Rx] Apixaban [Eliquis] 2.5 mg PO BID #60 tablet 10/16/16 [Rx] Diltiazem HCl [Cardizem] 60 mg PO Q6HR #120 tablet 10/16/16 [Rx] Levofloxacin 750 mg PO Q48H #2 tablet 10/16/16 [Rx] Metoprolol [Lopressor] 50 mg PO BID #120 tablet 10/16/16 [Rx] Allergies No Known Allergies Allergy (Verified 10/16/16 20:58) ROS unobtainable: other (pt sleeping; will not cooperate with history/exam. ) - Constitutional Vitals: Temp Pulse Resp BP Pulse Ox 97.9 F 122 34 134/88 94 L 10/17/16 01:06 10/17/16 01:06 10/17/16 01:06 10/17/16 01:06 10/17/16 01:06 General appearance: Present: no acute distress Exam: pt sleeping; arousable to pain/loud stimuli; responds appropriately to stimuli - Head Head exam: Present: normocephalic - Expanded Head Exam Head exam expanded: Present: contusion (left forehead). Absent: general tenderness, hematoma, laceration - Eye Eye exam: Present: EOMI, normal appearance, PERRL (pupils ~ 3 mm and reactive). Absent: scleral icterus Pupils: Present: normal accommodation - ENT ENT exam: Present: mucous membranes dry, normal exam, normal oropharynx - Neck Neck exam general surgery: Present: full ROM, normal inspection, supple. Absent : tenderness, thyromegaly - Expanded Neck Exam Neck exam: Absent: carotid bruit - Respiratory Respiratory exam: Present: decreased breath sounds, rales (right base), rhonchi. Absent: chest wall tenderness, respiratory distress, wheezes, tachypnea - Cardiovascular Cardiovascular exam: Present: irregular rhythm, +S1, +S2. Absent: diastolic murmur, systolic murmur - GI/Abdominal GI/Abdominal exam: Present: normal bowel sounds, soft. Absent: hepatomegaly, mass, splenomegaly, tenderness - Extremities Exam Extremities exam: Present: full ROM, warm. Absent: calf tenderness, pedal edema , tenderness - Back Exam Back exam: Present: normal inspection. Absent: CVA tenderness (L), CVA tenderness (R) - Neurological Exam Neurological exam: Present: CN II-XII intact Additional comments: not cooperating with exam - Psychiatric Additional comments: somnolent; easily arousabe difficult to assess - Skin Skin exam: Present: dry, rash, warm Internal Med - H&P Results - Labs CBC & Chem 7: 10/16/16 21:44 10/16/16 21:44 - EKG Data -: EKG Interpreted by Myself - EKG Data EKG comments: 10/17/16 03:38 Atrial Fib w RVR - Diagnostic Studies Chest x-ray Status: image reviewed by me (right lobe infiltrate)
[2016-10-17 06:37] LABS: Hematocrit 38.4 % (35.3-44.9); Mean Corpuscular HGB Conc 33.1 g/dL (31.6-35.5); Mean Corpuscular Hemoglobin 31.4 pg (28.0-33.3); Mean Platelet Volume 10.7 fL (9.4-12.4); Platelet Count 193 K/mcL (140-400); Red Blood Count 4.04 M/mcL (3.82-4.97); Red Cell Distribution Width 13.1 % (11.5-14.5)
[2016-10-17 06:41] LABS: Hemoglobin 12.7 g/dL (11.5-15.4)
[2016-10-17 06:51] LABS: Alanine Aminotransferase 17 Units/L (0-55); Albumin 2.9 g/dL (3.5-5.0); Albumin/Globulin Ratio 0.9 (1.1-2.2); Alkaline Phosphatase 61 Units/L (38-126); Aspartate Amino Transferase 24 Units/L (5-34); BUN/Creatinine Ratio 15 (6-26); Bilirubin,Total 0.7 mg/dL (0.2-1.2); Blood Urea Nitrogen 11 mg/dL (7-20); Calcium 8.1 mg/dL (8.6-10.8); Carbon Dioxide 31 mEq/L (19-29); Chloride 97 mEq/L (98-109); Globulin 3.3 g/dL (2.4-3.5); Glucose 157 mg/dL (70-99); Magnesium 1.7 mg/dL (1.6-2.6); Osmolality,Calculated 289 (280-300); Potassium 3.8 mEq/L (3.5-4.5); Sodium 138 mEq/L (136-145); Total Protein 6.2 g/dL (6.0-8.3); eGFR For African Americans > 60 (> 60); eGFR For Non-African Americans > 60 (> 60)
[2016-10-17] MEDS ORDERED: Piperacillin/Tazobactam 3.375 GM in D5% in Water (Mini-Bag+) 100 ML IVPB SCH (08:00)
[2016-10-17 08:21] LABS: Lymphocytes # 0.5 K/mcL (0.6-4.6); Monocytes # 0.9 K/mcL (0.0-1.3); Neutrophils # 22.1 K/mcL (1.6-8.9); Platelet Estimate Normal (Normal)
[2016-10-17] MEDS ORDERED: *HR* Amiodarone 200 MG TABLET PO SCH (09:00)
[2016-10-17] MEDS ORDERED: cloNIDine HCl 0.1 MG TABLET PO SCH (09:00)
[2016-10-17] MEDS: Loratadine 10 MG TABLET PO SCH (09:39)
[2016-10-17] MEDS: Gabapentin 100 MG CAPSULE PO SCH ×3 (09:39→22:31)
[2016-10-17] MEDS: CarBAMazepine XR (12 hr) 100 MG TAB PO SCH ×2 (09:39→22:31)
[2016-10-17] MEDS: Dorzolamide OPTH 10 ML BOTTLE BOTH EYES SCH ×3 (09:40→22:32)
--- NOTE | 2016-10-17 13:24 | Cardiology Consult Note ---
Date of Encounter: 10/17/16 Time of Encounter: 13:21 Assessment and Plan (1) Atrial fibrillation with RVR Current Visit: Yes Status: Acute HR 120-130's on admission. Currently rate controlled on cardizem gtt. Discussed with Dr. Grigsby. Discontinue amiodarone. Does not appear to be effective at this point. Rate control recommended with cardizem and lopressor. Titrate medications as tolerated. Will convert back to oral cardizem. Eliquis on hold d/t fall risk. Consider PT consult. Restart when felt safe from a fall/ bleeding standpoint. (2) Aspiration pneumonia Current Visit: Yes Status: Acute On zosyn.WBC increasing. Cultures pending. Primary team following. Qualifiers: Aspiration pneumonia type: unspecified Laterality: bilateral Lung location: lower lobe of lung Qualified Code(s): J69.0 - Pneumonitis due to inhalation of food and vomit (3) Pleural effusion Current Visit: Yes Status: Acute CT of spine shows moderate right sided pleural effusion, increased from previous. CXR showed changes likely d/t CHF. No overt fluid overload seen on exam. BNP increasing from previous. Last TTE 10/08/16 showed hyperdynamic EF at 70%. There may be some diastolic dysfunction in the setting of atrial fibrillation with RVR. Will give one dose IV lasix. Also being treated for pneumonia. Consider thoracentesis if no improvement. (4) Elevated troponin Current Visit: Yes Status: Acute Troponin elevated up to 0.24. Likely demand ischemia in the setting of fall, atrial fibrillation with RVR, and leukocytosis. She denies chest pain. (5) Syncope Current Visit: Yes Status: Acute Possible syncope and collapse. Unwitnessed fall. Pt is a poor historian. TTE 10/08/16 showed EF 70%. Aortic sclerosis. Possible hypoxia? Debillitation? Pt with moderate right pleural effusion. SPO2 89% on 2L during my exam. Telemetry shows atrial fibrillation with RVR and afib with slow ventricular response- pt currently on cardizem gtt. HR documented at 120-130 on admission. Continue to monitor telemetry. CT head negative. Qualifiers: Syncope type: unspecified Qualified Code(s): R55 - Syncope and collapse Discussion w patient/family: The assessment and plan as outlined above was discussed with the patient and/or family members who expressed understanding and agreement. All questions were answered. Thank you for involving us in the care of your patient. Please call with any questions. History of Present Illness Consult date: 10/17/16 Requesting physician: Gt Mendez Consult reason: afib with RVR Chief complaint: Fall History of present illness: Ms. Grover is a 86 year old female who was discharged yesterday after being treated for pneumonia and new atrial fibrillation/flutter. She was rate controlled on amiodarone, cardizem, and metoprolol. She had difficult to control heart rates likely d/t pneumonia. She was scheduled to f/u in the afib clinic. Past medical history includes hypertension, depression, TML, and CAD s/p PCI 4 years ago. Pt is confused on my exam. She is very [place]. Reports that she doesn't remember anything. According to ER report she fell at home unwitnessed. Her family heard a thud and she was found passed out. She did hit her head. CT of the head was negative. She has a bruise on her left forehead. Multiple bruises on her arms. She was found to be in afib with RVR HR 120-130's. She was hypertensive. Cardizem gtt was started. CXR showed possible CHF. She denies SOB. SPO2 noted to be 89% on 2L. CT showed moderate right pleural effusion. She continues to be treated for pneumonia. Past Med Surg Social Fam HX - Past Medical History Medical history: atrial fibrillation, coronary artery disease, hypertension, myocardial infarction, other Psychiatric history: anxiety, depression - Past Surgical History Surgical History: angioplasty/stent - Social History Smoking Status: Never smoker Smokeless Tobacco Status: No Alcohol use: none Drug use: none - Family History Mother History Unknown: Yes Father History Unknown: Yes Medications and Allergies Alendronate Sodium 70 mg PO QWEEK 08/24/16 [History] Brimonidine Tartrate [Alphagan P] 1 drop BOTH EYES TID 08/24/16 [History] CarBAMazepine [Carbamazepine ER] 100 mg PO BID 08/24/16 [History] Dorzolamide [Trusopt] 1 drop BOTH EYES TID 08/24/16 [History] Gabapentin [Neurontin] 100 mg PO TID 08/24/16 [History] Hydrocodone/Acetaminophen [Hydrocodon-Acetaminophen 5-325] 1 tab PO Q6H PRN 01/03 [History] Loratadine [Allergy Relief] 10 mg PO DAILY 08/24/16 [History] Omeprazole [PriLOSEC] 20 mg PO DAILY #30 cap 08/24/16 [Rx] Raloxifene [Evista] 60 mg PO DAILY 08/24/16 [History] Timolol Maleate 0.5% 1 drop OP BID 08/24/16 [History] Amitriptyline [Elavil] 25 mg PO DAILY 14 Days 09/15/16 [Rx] Aspirin [Lo-Dose Aspirin EC] 81 mg PO DAILY 10/07/16 [History] CloNIDine HCl [Clonidine HCl] 0.2 mg PO BID 10/07/16 [History] Amiodarone [Cordarone] 200 mg PO DAILY #30 tablet 10/16/16 [Rx] Apixaban [Eliquis] 2.5 mg PO BID #60 tablet 10/16/16 [Rx] Diltiazem HCl [Cardizem] 60 mg PO Q6HR #120 tablet 10/16/16 [Rx] Levofloxacin 750 mg PO Q48H #2 tablet 10/16/16 [Rx] Metoprolol [Lopressor] 50 mg PO BID #120 tablet 10/16/16 [Rx] Allergies No Known Allergies Allergy (Verified 10/16/16 20:58) All Systems Review: A 10-system review of systems was performed and is negative for pertinent findings except as documented above in the HPI. Physical Examination Vital Signs, Last 4 Hours Temp Pulse Resp BP Pulse Ox 10/17/16 11:19 97.6 F 72 20 100/65 97 General: Conversant, Other (Very [place], appears confused, pleasant) Neck: No JVD, Normal carotid pulses Cardiac: Other (Irregularly irregular) Lungs: Normal Breath Sounds, No Wheeze, Rales, Rhonchi Neuro: Alert and responsive, No focal deficits noted Abdomen: Soft, Non-Tender Skin: No rashes noted on visualized skin Musculoskeletal: No Chest Wall Tenderness Extremities: No Clubbing, No Cyanosis, No Edema, Normal Pulses Results 10/17/16 05:33 10/17/16 05:33 Lab Results 10/17/16 10/17/16 10/17/16 05:33 05:33 05:33 WBC 23.5 H Hgb 12.7 D Hct 38.4 Plt Count 193 Sodium 138 Potassium 3.8 Chloride 97 L Carbon Dioxide 31 H BUN 11 Creatinine 0.74 Glucose 157 H Calcium 8.1 L Magnesium 1.7 Total Bilirubin 0.7 AST 24 ALT 17 Alkaline Phosphatase 61 Troponin I 0.10 H* 10/17/16 11:31 WBC Hgb Hct Plt Count Sodium Potassium Chloride Carbon Dioxide BUN Creatinine Glucose Calcium Magnesium Total Bilirubin AST ALT Alkaline Phosphatase Troponin I 0.24 H* - Imaging and Cardiology Echo: report reviewed (10/08/16- EF 70%, hyperdynamic with underfilled LV, aortic sclerosis) - EKG Interpretation EKG results cardiology: personally reviewed (atrial fibrillation, no acute ST changes.) Consult Discharge Plan - Plan Referrals: Jenelle De Luna DO [Primary Care Provider] -
[2016-10-17] MEDS ORDERED: Furosemide 20 MG/2 ML VIAL IVP ONE (14:13)
[2016-10-17] MEDS: levoFLOXacin 750 MG TABLET PO SCH (14:29)
--- NOTE | 2016-10-17 14:53 | Event Note ---
Date of Encounter: 10/17/16 Time of Encounter: 14:46 86 year old female, discharged yesterday, after being rtated for a.fib with RVR , has been readmitted due to syncope and noted to have a.fib with RVR, started on Cardizem IV drip. Patient seen and examined. Reports feeling well. 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 Able to tell me her name and where she is at but has poor insight into her medical condition. Awake and alert and oriented to place and person. Chest- S1, S2 heard, irregular rate, TACHYCARDIA. Abdomen- soft and nontender Extremities- no pedal edema A.fib with RVR- plan to taper off IV Cardizem drip and titrate PO Cardizem along woth Metoprolol and Amiodarone. She has been started on Eliquis, will restart in am. Cardiology consult noted- Troponin leak likely due to tachycardia and stress. Given a dose of IV Lasix due to CHF resulting from RVR. Chest XRay shows B/L pleural effusions, right>left, with worsening BNP. Pneumonia- patient has been discharged with 2 more doses of PO Levaquin, will continue the same and d/c Zosyn as this is less likely aspiration PNA. Leukocytosis worsening likely due to stress from RVR and recent PNA. PT/OT evaluation pending. Patient will also likely require home O2 evaluation prior to discharge.
--- NOTE | 2016-10-17 16:36 | Electrocardiograph Report ---
[place] [id number] Test Date: 2016-10-16 Pat Name: Noni Grover Department: [id number] Room: 2NE21 Gender: F Client Associate: : [id number] Requested By: Bran Carrasquillo Order Number: [id number] Reading MD: Praveen Bustamante Measurements Intervals [place] Rate: 118 P: AL: 0 QRS: -75 QRSD: 121 T: 93 QT: 309 QTc: 379 Interpretive Statements ATRIAL FIBRILLATION WITH RAPID VENTRICULAR RESPONSE LBBB MARKED LEFT AXIS DEVIATION ANTEROSEPTAL MYOCARDIAL INFARCTION, OF INDTERMINATE AGE Electronically Signed On 10-17-2016 16:34:43 EST by Praveen Bustamante
[2016-10-17] MEDS: *HR* Heparin 5,000 UNIT/ML VIAL SQ SCH (18:05)
[2016-10-17] MEDS: dilTIAZem HCl 60 MG TABLET PO SCH ×2 (18:05→23:44)
[2016-10-17] MEDS ORDERED: *HR* Metoprolol 5 MG/5 ML VIAL IVP STA (19:05)
[2016-10-17] MEDS: Acetaminophen 325 MG TABLET PO PRN (22:30)
[2016-10-17] MEDS: cloNIDine HCl 0.1 MG TABLET PO SCH (22:31)
[2016-10-17] MEDS: Melatonin 3 MG TABLET PO SCH (22:33)
[2016-10-18] MEDS: dilTIAZem HCl 60 MG TABLET PO SCH ×5 (05:13→23:13)
[2016-10-18 06:26] LABS: Basophils % 0.2 %; Eosinophils # 0.2 K/mcL (0.0-0.6); Eosinophils % 0.9 %; Hematocrit 38.2 % (35.3-44.9); Hemoglobin 12.5 g/dL (11.5-15.4); Immature Granulocytes % 0.8 % (0-4); Lymphocytes # 0.7 K/mcL (0.6-4.6); Lymphocytes % 4.2 %; Mean Corpuscular HGB Conc 32.7 g/dL (31.6-35.5); Mean Corpuscular Volume 94.8 fL (83.0-100.0); Mean Platelet Volume 10.7 fL (9.4-12.4); Monocytes # 1.1 K/mcL (0.0-1.3); Monocytes % 6.6 %; Neutrophils # 15.1 K/mcL (1.6-8.9); Platelet Count 197 K/mcL (140-400); Red Blood Count 4.03 M/mcL (3.82-4.97); Red Cell Distribution Width 13.1 % (11.5-14.5); Segmented Neutrophils % 87.3 %
[2016-10-18 06:28] LABS: BUN/Creatinine Ratio 17 (6-26); Blood Urea Nitrogen 12 mg/dL (7-20); Calcium 8.4 mg/dL (8.6-10.8); Chloride 93 mEq/L (98-109); Glucose 112 mg/dL (70-99); Osmolality,Calculated 289 (280-300); Potassium 3.7 mEq/L (3.5-4.5); Sodium 139 mEq/L (136-145); eGFR For African Americans > 60 (> 60); eGFR For Non-African Americans > 60 (> 60)
[2016-10-18 06:48] LABS: Carbon Dioxide 40 mEq/L (19-29)
[2016-10-18] MEDS: cloNIDine HCl 0.1 MG TABLET PO SCH ×2 (09:15→20:49)
[2016-10-18] MEDS: Gabapentin 100 MG CAPSULE PO SCH ×3 (09:15→20:49)
[2016-10-18] MEDS: CarBAMazepine XR (12 hr) 100 MG TAB PO SCH ×2 (09:16→20:44)
[2016-10-18] MEDS: Aspirin Enteric Coated 81 MG Tablet PO SCH (09:16)
[2016-10-18] MEDS: Loratadine 10 MG TABLET PO SCH (09:16)
[2016-10-18] MEDS: Dorzolamide OPTH 10 ML BOTTLE BOTH EYES SCH ×3 (09:20→20:43)
[2016-10-18] MEDS: *HR* Heparin 5,000 UNIT/ML VIAL SQ SCH (09:23)
--- NOTE | 2016-10-18 11:26 | Cardiology Progress Note ---
Date of Encounter: 10/18/16 Time of Encounter: 11:23 Assessment and Plan (1) Atrial fibrillation with RVR Current Visit: Yes Status: Acute HR 120-130's on admission. Avg HR over night was 92 bpm. No significant bradycardia seen. Afib with RVR last night seen. Increased dose of lopressor not given last night after cardizem discontinued. Will need to monitor today to see effects of medication change. HR currently in the 90's. Amiodarone discontinued 10/17/16. Did not appear to be effective. Rate control recommended with cardizem and lopressor. Titrate medications as tolerated. Eliquis on hold d/t fall risk. Consider PT consult. Restart when felt safe from a fall/ bleeding standpoint. (2) Aspiration pneumonia Current Visit: Yes Status: Acute Primary team following. Qualifiers: Aspiration pneumonia type: unspecified Laterality: bilateral Lung location: lower lobe of lung Qualified Code(s): J69.0 - Pneumonitis due to inhalation of food and vomit (3) Pleural effusion Current Visit: Yes Status: Acute CT of spine shows moderate right sided pleural effusion, increased from previous. CXR showed changes likely d/t CHF. No overt fluid overload seen on exam. BNP increasing from previous. Last TTE 10/08/16 showed hyperdynamic EF at 70%. There may be some diastolic dysfunction in the setting of atrial fibrillation with RVR. Will give IV lasix again today. SPo2 89-92% on 3L. Also being treated for pneumonia. Consider thoracentesis if no improvement. May need home O2. (4) Elevated troponin Current Visit: Yes Status: Acute Troponin elevated up to 0.24. Likely demand ischemia in the setting of fall, atrial fibrillation with RVR, and leukocytosis. She denies chest pain. (5) Syncope Current Visit: Yes Status: Acute Possible syncope and collapse. Unwitnessed fall. Pt is a poor historian. TTE 10/08/16 showed EF 70%. Aortic sclerosis. Possible hypoxia? Debillitation? Pt with moderate right pleural effusion. SPO2 89%- 92%on 3L during my exam. Pt was not on oxygen at home. HR documented at 120-130 on admission. HR improved. No significant bradycardia over last 12 hours. Continue to monitor telemetry. CT head negative. Qualifiers: Syncope type: unspecified Qualified Code(s): R55 - Syncope and collapse Discussion w patient/family: The assessment and plan as outlined above was discussed with the patient and/or family members who expressed understanding and agreement. All questions were answered. Thank you for involving us in the care of your patient. Please call with any questions. Subjective Principal diagnosis: syncope, atrial fibrillation with RVR, hypoxia Interval history: Ms Guthrie is resting quietly in bed. No complaints. Objective Vital Signs, Last 4 Hours Temp Pulse Resp BP Pulse Ox 10/18/16 09:00 96 10/18/16 07:39 98.8 F 85 16 129/76 96 General: Conversant, No Apparent Distress, Other (very [place], Oriented x 3. ) HEENT: Atraumatic, Normocephaly, Mucus Membranes Moist Neck: No JVD, Normal carotid pulses Cardiac: Other (Irregularly irregular. ) Lungs: Normal Breath Sounds, No Wheeze, Rales, Rhonchi Neuro: Alert and responsive, No focal deficits noted Abdomen: Soft, Non-Tender Skin: No rashes noted on visualized skin Musculoskeletal: No Chest Wall Tenderness Extremities: No Clubbing, No Cyanosis, No Edema, Normal Pulses Results 10/18/16 05:28 10/18/16 05:28 Lab Results 10/18/16 10/18/16 05:28 05:28 WBC 17.2 H Hgb 12.5 Hct 38.2 Plt Count 197 Sodium 139 Potassium 3.7 Chloride 93 L Carbon Dioxide 40 H* BUN 12 Creatinine 0.69 Glucose 112 H Calcium 8.4 L - EKG Interpretation EKG results cardiology: other (24 hour telemetry review shows atrial fibrilation. AVg Hr was 92 bpm. Afib with RVR seen last night.) Consult Discharge Plan - Plan Referrals: Jenelle De Luna DO [Primary Care Provider] -
--- NOTE | 2016-10-18 15:05 | Internal Med Progress Note ---
Date of Encounter: 10/18/16 Time of Encounter: 11:40 - Assessment and plan (1) Aspiration pneumonia Current Visit: Yes Status: Suspected Assessment and plan: less likely a new event; chest XRay findings are mostly pleural effusions and atelectasis rather than aspiration. Complete previous antibiotic course with IV Levaquin. Leukocytosis, which is likely stress-induced, is improving; Qualifiers: Aspiration pneumonia type: unspecified Laterality: bilateral Lung location: lower lobe of lung Qualified Code(s): J69.0 - Pneumonitis due to inhalation of food and vomit (2) Atrial fibrillation with RVR Current Visit: Yes Status: Acute Assessment and plan: Cardiology f/up noted; increased Metoprolol and decreased Clonidine to 0.1mg BID. Continue PO Cardizem and hold Amiodarone for now. Off IV Cardizem rip. Resume intermediate anticoagulation with PO Eliquis. PT/OT evaluation noted, recommend placement in ECF; patient is agreeable. billing services manager consult. (3) Pleural effusion Current Visit: Yes Status: Acute Assessment and plan: B/L, right>left; likely resulting from RVR. Received a dose of IV Lasix 20mg yesterday. Currently stable; (4) Syncope Current Visit: Yes Status: Acute Qualifiers: Syncope type: unspecified Qualified Code(s): R55 - Syncope and collapse (5) Elevated troponin Current Visit: Yes Status: Acute Assessment and plan: likely tachycardia-induced; (6) CAD (coronary artery disease) Current Visit: Yes Status: Chronic Qualifiers: Coronary Disease-Associated Artery/Lesion type: [place] artery [place] vs. transplanted heart: [place] heart Associated angina: without angina Qualified Code(s): I25.10 - Atherosclerotic heart disease of [place] coronary artery without angina pectoris (7) Hypertension Current Visit: Yes Status: Chronic Qualifiers: Hypertension type: essential hypertension Qualified Code(s): I10 - Essential (primary) hypertension - Subjective Interval history: No chest pain, palpitations, shortness of breath; - Constitutional Vitals: Temp Pulse Resp BP Pulse Ox 98.2 F 74 16 110/57 95 10/18/16 11:45 10/18/16 11:45 10/18/16 11:45 10/18/16 11:45 10/18/16 11:45 General appearance: Present: A&O X 2 - Respiratory Respiratory exam: Present: CTAB (improving breath sounds B/L bases). Absent: accessory muscle use, rales, rhonchi, wheezes - Cardiovascular Cardiovascular exam: Present: RRR, +S1, +S2. Absent: diastolic murmur, gallop, rubs, systolic murmur - GI/Abdominal GI/Abdominal exam: Present: normal bowel sounds, soft, no peritoneal signs. Absent: distended, tenderness - Extremities Exam Extremities exam: Present: warm, radial pulses palpable and symetrical. Absent : calf tenderness, cyanotic, pedal edema Internal Medicine: Result - Labs CBC & Chem 7: 10/18/16 05:28 10/18/16 05:28 Labs: Short CBC 10/18/16 Range/Units 05:28 WBC 17.2 H (4.3-11.1) K/mcL Hgb 12.5 (11.5-15.4) g/dL Hct 38.2 (35.3-44.9) % Plt Count 197 (140-400) K/mcL Neutrophils # 15.1 H (1.6-8.9) K/mcL BMP 10/18/16 05:28 Sodium 139 Potassium 3.7 Chloride 93 L Carbon Dioxide 40 H* BUN 12 Creatinine 0.69 Glucose 112 H Calcium 8.4 L - ABG Interpretation ABG results: PT/INR, D-dimer PT 19.4 Seconds (9.4-12.1) H 10/16/16 21:44 Consult Discharge Plan - Plan Referrals: Jenelle De Luna DO [Primary Care Provider] -
[2016-10-18] MEDS: APIXABAN 5 MG TABLET PO SCH (20:49)
[2016-10-18] MEDS: Melatonin 3 MG TABLET PO SCH (20:49)
[2016-10-19] MEDS: dilTIAZem HCl 60 MG TABLET PO SCH ×4 (05:13→23:35)
[2016-10-19] MEDS: CarBAMazepine XR (12 hr) 100 MG TAB PO SCH ×2 (08:56→21:14)
[2016-10-19] MEDS: Gabapentin 100 MG CAPSULE PO SCH ×3 (08:56→21:15)
[2016-10-19] MEDS: Aspirin Enteric Coated 81 MG Tablet PO SCH (08:56)
[2016-10-19] MEDS: Dorzolamide OPTH 10 ML BOTTLE BOTH EYES SCH ×3 (08:57→21:19)
[2016-10-19] MEDS: cloNIDine HCl 0.1 MG TABLET PO SCH ×2 (08:58→21:15)
[2016-10-19] MEDS: APIXABAN 5 MG TABLET PO SCH ×2 (08:58→21:15)
[2016-10-19] MEDS: Loratadine 10 MG TABLET PO SCH (08:58)
--- NOTE | 2016-10-19 11:30 | Cardiology Progress Note ---
Date of Encounter: 10/19/16 Time of Encounter: 09:45 Assessment and Plan (1) Atrial fibrillation with RVR Current Visit: Yes Status: Acute HR 120-130's on admission. Admitted with pnuemonia and was found to have new atrial fibrillation last week. Re-admitted after unwitnessed syncopal event/ fall at home. Avg HR over last 12 hours was 84 bpm. Minimum HR was 39 bpm at 11 40 am. Afib with RVR early this morning. Overall HR improved. 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 She was rate controlled prior to d/c. Bradycardia only seen during nocturnal hours during last 48 Hr. Recommend holter monitor at discharge. Possiblity of PPM was discussed. Not an ideal time for PPM in the setting of pneumonia and leukocytosis and no significant tachy-alexia over last 48 hrs seen. She is asymptomatic with her atrial fibrillation. She presented after fall at home. Not clear if d/t atrial fibrillation, hypoxia , or debillitation. She is now going to [facility] for close monitoring. Lopressor increased and she is tolerating well. Continue cardizem. Amiodarone discontinued 10/17/16. Did not appear to be effective. Eliquis restarted. Going to rehab to decrease fall risk. Cardiology will sign off. Out pt f/u in 1 week. (2) Aspiration pneumonia Current Visit: Yes Status: Suspected Primary team following. Qualifiers: Aspiration pneumonia type: unspecified Laterality: bilateral Lung location: lower lobe of lung Qualified Code(s): J69.0 - Pneumonitis due to inhalation of food and vomit (3) Pleural effusion Current Visit: Yes Status: Acute CT of spine shows moderate right sided pleural effusion, increased from previous. CXR showed changes likely d/t CHF. No overt fluid overload seen on exam. BNP increasing from previous. Last TTE 10/08/16 showed hyperdynamic EF at 70%. There may be some diastolic dysfunction in the setting of atrial fibrillation with RVR. Lasix given during her stay. Net negative 3500ml. SPo2 95 % on 3L. Improved from yesterday. Also being treated for pneumonia. May need home O2. (4) Elevated troponin Current Visit: Yes Status: Acute Troponin elevated up to 0.24. Likely demand ischemia in the setting of fall, atrial fibrillation with RVR, and leukocytosis. She denies chest pain. (5) Syncope Current Visit: Yes Status: Acute Possible syncope and collapse. Unwitnessed fall. Pt is a poor historian. TTE 10/08/16 showed EF 70%. Aortic sclerosis. Possible hypoxia? Debillitation? Pt with moderate right pleural effusion. SPO2 89%- 92%on 3L during my exam. Pt was not on oxygen at home. HR documented at 120-130 on admission. HR improved. No significant bradycardia during daytime hours seen over last 48 hr. Continue to monitor telemetry. CT head negative. Qualifiers: Syncope type: unspecified Qualified Code(s): R55 - Syncope and collapse Discussion w patient/family: The assessment and plan as outlined above was discussed with the patient and/or family members who expressed understanding and agreement. All questions were answered. Thank you for involving us in the care of your patient. Please call with any questions. Subjective Principal diagnosis: syncope, atrial fibrillation with RVR, hypoxia Interval history: Ms Grover is resting quietly in bed. Appears more confused today. States she was up in the chair for too long and it wore her out. She states she is going to a rehab facility Objective Vital Signs, Last 4 Hours Pulse Ox 10/19/16 08:53 96 General: Conversant, No Apparent Distress, Other (oriented x 3 but appears confused. Very [place].) HEENT: Atraumatic, Normocephaly, Mucus Membranes Moist Neck: No JVD, Normal carotid pulses Cardiac: Other (Irregularly irregular.) Lungs: Normal Breath Sounds, No Wheeze, Rales, Rhonchi Neuro: Alert and responsive, No focal deficits noted Abdomen: Soft, Non-Tender Skin: No rashes noted on visualized skin Musculoskeletal: No Chest Wall Tenderness Extremities: No Clubbing, No Cyanosis, No Edema, Normal Pulses Results 10/18/16 05:28 10/18/16 05:28 - EKG Interpretation EKG results cardiology: other (24 hour telemetry review shows avg HR 84 bpm. Minimum HR was 39 BPM at 1140 am. Maximum was 120 bpm at 0700am. HR currently in the 80's) Consult Discharge Plan - Plan Referrals: Jenelle De Luna DO [Primary Care Provider] - Praveen Bustamante MD [Partnered Physician] - 11/08/16 10:30 am
[2016-10-19] MEDS: levoFLOXacin 750 MG TABLET PO SCH (11:58)
--- NOTE | 2016-10-19 13:11 | Internal Med Progress Note ---
Date of Encounter: 10/19/16 Time of Encounter: 12:00 - Assessment and plan (1) Aspiration pneumonia Current Visit: Yes Status: Suspected Assessment and plan: less likely a new event; chest XRay findings are mostly pleural effusions and atelectasis rather than aspiration. Complete previous antibiotic course with IV Levaquin. Leukocytosis, which is likely stress-induced, is improving; Qualifiers: Aspiration pneumonia type: unspecified Laterality: bilateral Lung location: lower lobe of lung Qualified Code(s): J69.0 - Pneumonitis due to inhalation of food and vomit (2) Atrial fibrillation with RVR Current Visit: Yes Status: Acute Assessment and plan: Cardiology f/up noted, signed off at this time; continue metoprolol and Cardizem for rate control. Patient is noted to have labile heart rate which makes medication adjustment difficult. Cardiology recommends for patient to be discharged on Holter monitoring. Continue tank terminal gauger anticoagulation with PO Eliquis. PT/OT evaluation noted, recommend placement in ECF; patient is agreeable. transportation services representative consulted, working on the same. (3) Pleural effusion Current Visit: Yes Status: Acute Assessment and plan: B/L, right>left; likely resulting from RVR. Received a dose of IV Lasix 20mg. Currently stable; (4) Syncope Current Visit: Yes Status: Acute Qualifiers: Syncope type: unspecified Qualified Code(s): R55 - Syncope and collapse (5) Elevated troponin Current Visit: Yes Status: Acute (6) CAD (coronary artery disease) Current Visit: Yes Status: Chronic Qualifiers: Coronary Disease-Associated Artery/Lesion type: [place] artery [place] vs. transplanted heart: [place] heart Associated angina: without angina Qualified Code(s): I25.10 - Atherosclerotic heart disease of [place] coronary artery without angina pectoris (7) Hypertension Current Visit: Yes Status: Chronic Qualifiers: Hypertension type: essential hypertension Qualified Code(s): I10 - Essential (primary) hypertension - Subjective Interval history: No chest pain, palpitations, shortness of breath; reports that hospital food is bad and she gets her lunch from outside; able to participate in PT; - Constitutional Vitals: Temp Pulse Resp BP Pulse Ox 97.5 F L 106 22 124/67 99 10/19/16 12:34 10/19/16 12:34 10/19/16 12:34 10/19/16 12:34 10/19/16 12:34 General appearance: Present: A&O X 2 - Respiratory Respiratory exam: Present: CTAB. Absent: accessory muscle use, rales, rhonchi, wheezes - Cardiovascular Cardiovascular exam: Present: irregular rhythm, +S1, +S2. Absent: diastolic murmur, gallop, rubs, systolic murmur - GI/Abdominal GI/Abdominal exam: Present: normal bowel sounds, soft, no peritoneal signs. Absent: distended, tenderness - Extremities Exam Extremities exam: Present: full ROM, warm, radial pulses palpable and symetrical. Absent: calf tenderness, cyanotic, pedal edema Internal Medicine: Result - Labs CBC & Chem 7: 10/18/16 05:28 10/18/16 05:28 - ABG Interpretation ABG results: PT/INR, D-dimer PT 19.4 Seconds (9.4-12.1) H 10/16/16 21:44 Consult Discharge Plan - Plan Referrals: Jenelle De Luna DO [Primary Care Provider] - Praveen Bustamante MD [Partnered Physician] - 11/08/16 10:30 am
[2016-10-19] MEDS: Melatonin 3 MG TABLET PO SCH (21:15)
[2016-10-20] MEDS: dilTIAZem HCl 60 MG TABLET PO SCH ×3 (06:12→17:14)
[2016-10-20 06:53] LABS: Basophils # 0.1 K/mcL (0.0-0.2); Basophils % 0.5 %; Eosinophils # 0.3 K/mcL (0.0-0.6); Eosinophils % 2.1 %; Hematocrit 41.8 % (35.3-44.9); Hemoglobin 13.2 g/dL (11.5-15.4); Immature Granulocytes % 0.8 % (0-4); Lymphocytes # 0.9 K/mcL (0.6-4.6); Lymphocytes % 6.7 %; Mean Corpuscular HGB Conc 31.6 g/dL (31.6-35.5); Mean Corpuscular Hemoglobin 30.8 pg (28.0-33.3); Mean Corpuscular Volume 97.4 fL (83.0-100.0); Mean Platelet Volume 10.1 fL (9.4-12.4); Monocytes # 0.8 K/mcL (0.0-1.3); Monocytes % 6.1 %; Neutrophils # 10.9 K/mcL (1.6-8.9); Platelet Count 283 K/mcL (140-400); Red Blood Count 4.29 M/mcL (3.82-4.97); Red Cell Distribution Width 13.2 % (11.5-14.5); Segmented Neutrophils % 83.8 %
[2016-10-20 07:17] LABS: BUN/Creatinine Ratio 21 (6-26); Blood Urea Nitrogen 16 mg/dL (7-20); Calcium 8.4 mg/dL (8.6-10.8); Carbon Dioxide 36 mEq/L (19-29); Chloride 96 mEq/L (98-109); Glucose 167 mg/dL (70-99); Osmolality,Calculated 299 (280-300); Potassium 4.1 mEq/L (3.5-4.5); Sodium 142 mEq/L (136-145); eGFR For African Americans > 60 (> 60); eGFR For Non-African Americans > 60 (> 60)
[2016-10-20] MEDS: CarBAMazepine XR (12 hr) 100 MG TAB PO SCH ×2 (08:40→21:05)
[2016-10-20] MEDS: Aspirin Enteric Coated 81 MG Tablet PO SCH (08:41)
[2016-10-20] MEDS: APIXABAN 5 MG TABLET PO SCH ×2 (08:41→21:05)
[2016-10-20] MEDS: Gabapentin 100 MG CAPSULE PO SCH ×3 (08:41→21:05)
[2016-10-20] MEDS: Loratadine 10 MG TABLET PO SCH (08:41)
[2016-10-20] MEDS: cloNIDine HCl 0.1 MG TABLET PO SCH ×2 (08:41→21:05)
[2016-10-20] MEDS: Dorzolamide OPTH 10 ML BOTTLE BOTH EYES SCH ×3 (08:43→21:09)
--- NOTE | 2016-10-20 14:21 | Discharge Summary ---
Date of Encounter: 10/20/16 Time of Encounter: 17:29 - Discharge Diagnosis (1) Fall Priority: Primary Status: Acute Qualifiers: Encounter type: initial encounter Qualified Code(s): W19.XXXA - Unspecified fall, initial encounter (2) Acute metabolic encephalopathy Priority: Primary Status: Acute (3) Multiple facial bone fractures Priority: Primary Status: Acute Qualifiers: Encounter type: initial encounter Fracture type: closed Qualified Code(s) : S02.92XA - Unspecified fracture of facial bones, initial encounter for closed fracture (4) Aspiration pneumonia Priority: Primary Status: Suspected Qualifiers: Aspiration pneumonia type: unspecified Laterality: bilateral Lung location: lower lobe of lung Qualified Code(s): J69.0 - Pneumonitis due to inhalation of food and vomit (5) Atrial fibrillation with RVR Priority: Primary Status: Acute (6) Pleural effusion Priority: Primary Status: Acute (7) Syncope Priority: Primary Status: Acute Qualifiers: Syncope type: unspecified Qualified Code(s): R55 - Syncope and collapse (8) Elevated troponin Priority: Primary Status: Acute (9) CAD (coronary artery disease) Priority: Secondary Status: Chronic Qualifiers: Coronary Disease-Associated Artery/Lesion type: [place] artery [place] vs. transplanted heart: [place] heart Associated angina: without angina Qualified Code(s): I25.10 - Atherosclerotic heart disease of [place] coronary artery without angina pectoris (10) Hypertension Priority: Secondary Status: Chronic Qualifiers: Hypertension type: essential hypertension Qualified Code(s): I10 - Essential (primary) hypertension - Discharge Medications Prescriptions: Metoprolol [Lopressor] 100 mg PO BID #30 tablet Home Medications: Alendronate Sodium 70 mg PO QWEEK 08/24/16 [History] Brimonidine Tartrate [Alphagan P] 1 drop BOTH EYES TID 08/24/16 [History] CarBAMazepine [Carbamazepine ER] 100 mg PO BID 08/24/16 [History] Dorzolamide [Trusopt] 1 drop BOTH EYES TID 08/24/16 [History] Gabapentin [Neurontin] 100 mg PO TID 08/24/16 [History] Loratadine [Allergy Relief] 10 mg PO DAILY 08/24/16 [History] Omeprazole [PriLOSEC] 20 mg PO DAILY #30 cap 08/24/16 [Rx] Raloxifene [Evista] 60 mg PO DAILY 08/24/16 [History] Timolol Maleate 0.5% 1 drop OP BID 08/24/16 [History] Amitriptyline [Elavil] 25 mg PO DAILY 14 Days 09/15/16 [Rx] Aspirin [Lo-Dose Aspirin EC] 81 mg PO DAILY 10/07/16 [History] CloNIDine HCl [Clonidine HCl] 0.2 mg PO BID 10/07/16 [History] Apixaban [Eliquis] 2.5 mg PO BID #60 tablet 10/16/16 [Rx] Diltiazem HCl [Cardizem] 60 mg PO Q6HR #120 tablet 10/16/16 [Rx] Metoprolol [Lopressor] 100 mg PO BID #30 tablet 10/20/16 [Rx] Allergies/Adverse Reactions: Allergies No Known Allergies Allergy (Verified 10/16/16 20:58) Procedures/tests Complete & Pending: Procedures Performed prior 72 hours Category Date Time Status ECG 48 holter monitor setup [ECG] Routine Y 10/19/16 11:52 Ordered Date of admission: 10/17/16 14:28 Primary care physician: Torres Nicholas Discharging clinician: Marianela Ram Anticipated date of discharge: 10/20/16 - Patient Status Disposition: Transfer Critical Access Hosp Condition: Serious Overall status at discharge: patient is not back to baseline - Discharge Instructions Follow Up With: Jenelle De Luna DO [Primary Care Provider] - Praveen Bustamante MD [Partnered Physician] - 11/08/16 10:30 am - Diet and Activity Diet: low fat, low cholesterol, low salt diet Hospital course: Ms. Grover is a 86 year old female recently discharged from our facility after being treated for atrial fibrillation with RVR and Pneumonia, was admitted due to having syncopal episode at home. She was noted to be in a.fib with RVR at admission and was briefly started on IV Cardizem drip, which has been converted to oral Cardizem and Metoprolol. Cardiology was consulted and her meds were adjusted- held Amiodarone and titrated beta brad. She is noted to have labile heart rate, which is difficult to appropriately controlled and may require pacemaker placement, which is deferred now due to leukocytosis and underlying Pneumonia. Her antibiotics for previously diagnosed Pneumonia were continued and completed. SHe remained afebrile and leukocytosis resolved. She is noted to require supplemental O2 via NC at 2L/min. PT evaluation was done and recommended placement in ECF. Family is in agreement and patient is now medically stable for transfer to rehab facility. - Time Spent with Patient Total time spent providing and/or coordinating discharge services: Greater than 30 minutes (50 min) - Constitutional Vitals: Temp Pulse Resp BP Pulse Ox 98.0 F 63 24 125/64 97 10/20/16 12:47 10/20/16 12:47 10/20/16 12:47 10/20/16 12:47 10/20/16 12:47 General appearance: Present: A&O X 2 - Respiratory Respiratory exam: Present: CTAB. Absent: accessory muscle use, rales, rhonchi, wheezes - Cardiovascular Cardiovascular exam: Present: irregular rhythm, +S1, +S2. Absent: diastolic murmur, gallop, rubs, systolic murmur
--- NOTE | 2016-10-20 14:23 | Physician Discharge Referral ---
ExtendedCare Referral Info Transfer To: [facility] Provider in Charge: Marianela Ram Provider in Charge after Transfer: PCP Institutional Level of Care: Skilled - Diagnosis (1) Aspiration pneumonia Priority: Primary Status: Suspected (2) Atrial fibrillation with RVR Priority: Primary Status: Acute (3) Pleural effusion Priority: Primary Status: Acute (4) Syncope Priority: Primary Status: Acute (5) Elevated troponin Priority: Primary Status: Acute (6) CAD (coronary artery disease) Priority: Secondary Status: Chronic (7) Hypertension Priority: Secondary Status: Chronic Expected Duration of Placement: 3 weeks Prognosis: Fair Aware of Diagnosis: Patient, Family - Transfer Medications Prescriptions: Metoprolol [Lopressor] 100 mg PO BID #30 tablet Home Medications: Alendronate Sodium 70 mg PO QWEEK 08/24/16 [History] Brimonidine Tartrate [Alphagan P] 1 drop BOTH EYES TID 08/24/16 [History] CarBAMazepine [Carbamazepine ER] 100 mg PO BID 08/24/16 [History] Dorzolamide [Trusopt] 1 drop BOTH EYES TID 08/24/16 [History] Gabapentin [Neurontin] 100 mg PO TID 08/24/16 [History] Loratadine [Allergy Relief] 10 mg PO DAILY 08/24/16 [History] Omeprazole [PriLOSEC] 20 mg PO DAILY #30 cap 08/24/16 [Rx] Raloxifene [Evista] 60 mg PO DAILY 08/24/16 [History] Timolol Maleate 0.5% 1 drop OP BID 08/24/16 [History] Amitriptyline [Elavil] 25 mg PO DAILY 14 Days 09/15/16 [Rx] Aspirin [Lo-Dose Aspirin EC] 81 mg PO DAILY 10/07/16 [History] CloNIDine HCl [Clonidine HCl] 0.2 mg PO BID 10/07/16 [History] Apixaban [Eliquis] 2.5 mg PO BID #60 tablet 10/16/16 [Rx] Diltiazem HCl [Cardizem] 60 mg PO Q6HR #120 tablet 10/16/16 [Rx] Metoprolol [Lopressor] 100 mg PO BID #30 tablet 10/20/16 [Rx] Allergies/Adverse Reactions: Allergies No Known Allergies Allergy (Verified 10/16/16 20:58) - Respiratory Orders Oxygen / L per min (2-3L/min via NC) Smoking Cessation: Smoking cessation has been advised. For more information, call the [place] Tobacco Quit Line at 9-731-HQQC-NOW. - Advance Directives Power of Alumina Refinery Operator: Yes (Son) Code Status: Full Code - Mobility Orders Ambulate - Rehabiliation Orders Rehab Potential: Fair Rehab Orders: ROM Exercises, Evaluation for Physical Therapy, Evaluation for Occupational Therapy - Diet Orders Cardiac CERTIFICATION: I certify that the transfer of the above named patient to an Extended Care Facility is necessary for the continuing treatment of the diagnosis listed. The above information is true and accurate reflection of patient's current condition. Confidential - Redisclosure prohibited without a patient's written consent.
--- NOTE | 2016-10-20 16:10 | Electrocardiograph Report ---
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
[2016-10-20] MEDS: Melatonin 3 MG TABLET PO SCH (21:05)
[2016-10-21] MEDS: dilTIAZem HCl 60 MG TABLET PO SCH ×5 (00:31→23:50)
[2016-10-21] MEDS: CarBAMazepine XR (12 hr) 100 MG TAB PO SCH ×2 (08:55→20:47)
[2016-10-21] MEDS: Aspirin Enteric Coated 81 MG Tablet PO SCH (08:56)
[2016-10-21] MEDS: Loratadine 10 MG TABLET PO SCH (08:56)
[2016-10-21] MEDS: cloNIDine HCl 0.1 MG TABLET PO SCH ×2 (08:56→20:47)
[2016-10-21] MEDS: APIXABAN 5 MG TABLET PO SCH ×2 (08:56→20:47)
[2016-10-21] MEDS: Gabapentin 100 MG CAPSULE PO SCH ×3 (08:56→20:47)
[2016-10-21] MEDS: Dorzolamide OPTH 10 ML BOTTLE BOTH EYES SCH ×3 (09:11→20:47)
--- NOTE | 2016-10-21 11:16 | Internal Med Progress Note ---
Date of Encounter: 10/21/16 Time of Encounter: 11:14 - Assessment and plan (1) Aspiration pneumonia Current Visit: Yes Status: Suspected Assessment and plan: less likely a new event; improved leukocytosis. Completed antibiotic course with Levaquin from previous discharge. Qualifiers: Aspiration pneumonia type: unspecified Laterality: bilateral Lung location: lower lobe of lung Qualified Code(s): J69.0 - Pneumonitis due to inhalation of food and vomit (2) Atrial fibrillation with RVR Current Visit: Yes Status: Acute Assessment and plan: Cardiology signed off at this time; continue metoprolol and Cardizem for rate control. Patient is noted to have labile heart rate which makes medication adjustment difficult. Cardiology recommends for patient to be discharged on Holter monitoring, which she has received yesterday. Continue [facility] anticoagulation with PO Eliquis. administrative services director working on placement at extended care facility for continued rehabilitation. (3) Pleural effusion Current Visit: Yes Status: Acute (4) Syncope Current Visit: Yes Status: Acute Qualifiers: Syncope type: unspecified Qualified Code(s): R55 - Syncope and collapse (5) Elevated troponin Current Visit: Yes Status: Acute (6) CAD (coronary artery disease) Current Visit: Yes Status: Chronic Qualifiers: Coronary Disease-Associated Artery/Lesion type: [place] artery [place] vs. transplanted heart: [place] heart Associated angina: without angina Qualified Code(s): I25.10 - Atherosclerotic heart disease of [place] coronary artery without angina pectoris (7) Hypertension Current Visit: Yes Status: Chronic Assessment and plan: Blood pressure noted to be fairly controlled. Continue current medications. Qualifiers: Hypertension type: essential hypertension Qualified Code(s): I10 - Essential (primary) hypertension - Subjective Interval history: Slightly drowsy. Reports feeling well, no chest pain or palpitations or shortness of breath. Awaiting placement at rehabilitation. - Constitutional Vitals: Temp Pulse Resp BP Pulse Ox 97.5 F L 105 16 174/89 97 10/21/16 07:30 10/21/16 07:30 10/21/16 07:30 10/21/16 07:30 10/21/16 07:30 General appearance: Present: A&O X 1 - Respiratory Respiratory exam: Present: CTAB. Absent: accessory muscle use, rales, rhonchi, wheezes - Cardiovascular Cardiovascular exam: Present: irregular rhythm, +S1, +S2. Absent: diastolic murmur, gallop, rubs, systolic murmur - GI/Abdominal GI/Abdominal exam: Present: normal bowel sounds, soft, no peritoneal signs. Absent: distended, tenderness Internal Medicine: Result - Labs CBC & Chem 7: 10/20/16 06:06 10/20/16 06:06 - ABG Interpretation ABG results: PT/INR, D-dimer PT 19.4 Seconds (9.4-12.1) H 10/16/16 21:44 Consult Discharge Plan - Plan Referrals: Jenelle De Luna DO [Primary Care Provider] - Praveen Bustamante MD [Partnered Physician] - 11/08/16 10:30 am Prescriptions: Metoprolol [Lopressor] 100 mg PO BID #30 tablet
[2016-10-21 17:31] LABS: Basophils # 0.1 K/mcL (0.0-0.2); Basophils % 0.4 %; Eosinophils # 0.2 K/mcL (0.0-0.6); Eosinophils % 1.2 %; Hematocrit 42.1 % (35.3-44.9); Hemoglobin 13.3 g/dL (11.5-15.4); Immature Granulocytes % 0.8 % (0-4); Lymphocytes # 1.3 K/mcL (0.6-4.6); Lymphocytes % 8.8 %; Mean Corpuscular HGB Conc 31.6 g/dL (31.6-35.5); Mean Corpuscular Hemoglobin 30.9 pg (28.0-33.3); Mean Corpuscular Volume 97.9 fL (83.0-100.0); Mean Platelet Volume 9.9 fL (9.4-12.4); Monocytes # 0.9 K/mcL (0.0-1.3); Monocytes % 6.5 %; Neutrophils # 11.7 K/mcL (1.6-8.9); Platelet Count 311 K/mcL (140-400); Red Cell Distribution Width 13.2 % (11.5-14.5); Segmented Neutrophils % 82.3 %
[2016-10-21 17:42] LABS: BUN/Creatinine Ratio 25 (6-26); Blood Urea Nitrogen 17 mg/dL (7-20); Calcium 8.6 mg/dL (8.6-10.8); Carbon Dioxide 36 mEq/L (19-29); Chloride 98 mEq/L (98-109); Glucose 155 mg/dL (70-99); Magnesium 1.5 mg/dL (1.6-2.6); Osmolality,Calculated 299 (280-300); Sodium 142 mEq/L (136-145); eGFR For African Americans > 60 (> 60); eGFR For Non-African Americans > 60 (> 60)
[2016-10-21] MEDS: Melatonin 3 MG TABLET PO SCH (20:47)
[2016-10-22] MEDS: dilTIAZem HCl 60 MG TABLET PO SCH ×2 (06:00→15:47)
[2016-10-22] MEDS ORDERED: Magnesium Sulfate 2 GM in D5% in Water 100 ML IVPB ONE (09:27)
--- NOTE | 2016-10-22 09:37 | Internal Med Progress Note ---
Date of Encounter: 10/22/16 Time of Encounter: 09:34 - Assessment and plan (1) Fall Current Visit: Yes Status: Acute Assessment and plan: Patient had a mechanical fall from bed this morning, due to confusion and sundowning. Sustained left-sided black eye with small laceration above left eye. Check CT head for trauma and bleed, patient is at an increased risk due to being on anticoagulation. Fall precautions. Physical therapy. Continue to monitor closely. Qualifiers: Encounter type: initial encounter Qualified Code(s): W19.XXXA - Unspecified fall, initial encounter (2) Aspiration pneumonia Current Visit: Yes Status: Suspected Qualifiers: Aspiration pneumonia type: unspecified Laterality: bilateral Lung location: lower lobe of lung Qualified Code(s): J69.0 - Pneumonitis due to inhalation of food and vomit (3) Atrial fibrillation with RVR Current Visit: Yes Status: Acute Assessment and plan: Cardiology signed off at this time; continue metoprolol and Cardizem for rate control. Patient is noted to have labile heart rate which makes medication adjustment difficult. Noted to be slightly tachycardic this morning but will hold off on extra doses of medication and continue to monitor for now. Cardiology recommends for patient to be discharged on Holter monitoring, which she has received; Continue intermediate project manager anticoagulation with PO Eliquis. director of services working on placement at extended care facility for continued rehabilitation. (4) Pleural effusion Current Visit: Yes Status: Acute (5) Syncope Current Visit: Yes Status: Acute Qualifiers: Syncope type: unspecified Qualified Code(s): R55 - Syncope and collapse (6) Elevated troponin Current Visit: Yes Status: Acute (7) CAD (coronary artery disease) Current Visit: Yes Status: Chronic Qualifiers: Coronary Disease-Associated Artery/Lesion type: [place] artery [place] vs. transplanted heart: [place] heart Associated angina: without angina Qualified Code(s): I25.10 - Atherosclerotic heart disease of [place] coronary artery without angina pectoris (8) Hypertension Current Visit: Yes Status: Chronic Qualifiers: Hypertension type: essential hypertension Qualified Code(s): I10 - Essential (primary) hypertension - Subjective Interval history: Patient sustained a fall overnight and has left black eye with laceration above her left eye. She reports doing well, denies any pain and is aware that she fell out of bed this morning. Cannot answer further questions due to difficulty hearing. - Constitutional Vitals: Temp Pulse Resp BP Pulse Ox 98.2 F 101 16 119/86 95 10/22/16 08:20 10/22/16 08:20 10/22/16 08:20 10/22/16 08:20 10/22/16 08:20 General appearance: Present: A&O X 1 - Eye Eye exam: Present: periorbital swelling (Left black eye with periorbital contusion and edema with some conjunctival edema. Small laceration over the superolateral eyelid, with Steristrips;), PERRL, conjuntiva pink, sclera anicteric Pupils: Present: PERRL - Respiratory Respiratory exam: Present: CTAB. Absent: accessory muscle use, rales, rhonchi, wheezes - Cardiovascular Cardiovascular exam: Present: irregular rhythm, +S1, +S2, tachycardia. Absent: diastolic murmur, gallop, rubs, systolic murmur - GI/Abdominal GI/Abdominal exam: Present: normal bowel sounds, soft, no peritoneal signs. Absent: distended, tenderness - Extremities Exam Extremities exam: Present: full ROM, warm, radial pulses palpable and symetrical. Absent: calf tenderness, cyanotic, pedal edema - Neurological Exam Neurological exam: Present: CN II-XII intact, no focal deficits. Absent: pronater drift, facial droop, speech deficit - Skin Skin exam: Present: dry, intact, petechiae (Multiple ecchymosis on bilateral upper extremities, left more than right) Internal Medicine: Result - Labs CBC & Chem 7: 10/21/16 17:14 10/21/16 17:14 Labs: Short CBC 10/21/16 Range/Units 17:14 WBC 14.3 H (4.3-11.1) K/mcL Hgb 13.3 (11.5-15.4) g/dL Hct 42.1 (35.3-44.9) % Plt Count 311 (140-400) K/mcL Neutrophils # 11.7 H (1.6-8.9) K/mcL BMP 10/21/16 17:14 Sodium 142 Potassium 4.0 Chloride 98 Carbon Dioxide 36 H BUN 17 Creatinine 0.68 Glucose 155 H Calcium 8.6 - ABG Interpretation ABG results: PT/INR, D-dimer PT 19.4 Seconds (9.4-12.1) H 10/16/16 21:44 - Impressions Impressions Head CT 10/21/16 16:10 IMPRESSION: No acute intracranial abnormality. D/ 10/21/2016 17:03:05 Juan Butler MD / Isabelle Jones Interpreting Provider: Juan Butler MD Consult Discharge Plan - Plan Referrals: Jenelle De Luna DO [Primary Care Provider] - Praveen Bustamante MD [Partnered Physician] - 11/08/16 10:30 am Prescriptions: Metoprolol [Lopressor] 100 mg PO BID #30 tablet
[2016-10-22] MEDS: Gabapentin 100 MG CAPSULE PO SCH ×2 (09:58→16:07)
[2016-10-22] MEDS: CarBAMazepine XR (12 hr) 100 MG TAB PO SCH (09:59)
[2016-10-22] MEDS: Loratadine 10 MG TABLET PO SCH (09:59)
[2016-10-22] MEDS: Acetaminophen 325 MG TABLET PO PRN (09:59)
[2016-10-22] MEDS: cloNIDine HCl 0.1 MG TABLET PO SCH (09:59)
[2016-10-22] MEDS: Dorzolamide OPTH 10 ML BOTTLE BOTH EYES SCH ×2 (10:00→16:07)
[2016-10-22] MEDS ORDERED: D5% in 0.9% NACL 1,000 ML IVC SCH (15:45)
[2016-10-22] MEDS: APIXABAN 5 MG TABLET PO SCH (15:48)
[2016-10-22] MEDS: Aspirin Enteric Coated 81 MG Tablet PO SCH (15:48)
[2016-10-22 16:19] VITALS: BP 104/75
--- NOTE | 2016-10-23 16:41 | Holter Monitor Report ---
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 [place] [address] Monitor Duration: 48hrs Indications: A-FIB Recording Time: 47hrs 59min Time Analyzed: 47hrs 59min Quality of Tracing: Good Diary: No Description of symptoms: No There were 484325 total beats, including ectopy. Average HR was 102. Minimum HR of 50 BPM occurred at 14:35D1 and maximum HR of 182 BPM occurred at 06:59D3. Ventricular Ectopy consisted of 0 total beats. Pauses occured 2 times, the longest of which was 2.1 seconds. Impression: 1. Baseline rhythm atrial fibrillation, average heart rate 102 BPM. 2. Two pauses up to 2.1 seconds. 3. No symptoms noted. Electronically Signed On 10-23-2016 16:39:50 EST by Praveen Bustamante
== END 2016-10-22 19:10 | disposition critical access hospital (66) | DRG 177 ==
LOC: EMEROO 20:55 → 2NENU 20:55
PROVIDERS: ADMIT Internal Medicine; ATTEND Internal Medicine